=== PATIENT | male | born 1970 | race Caucasian/White ===

== ENCOUNTER 2022-03-20 12:15 | Inpatient (IN) | payer BC ==
[~2022-03-20] VITALS: Ht 177.8 cm; Wt 133.6 kg
[2022-03-20 12:10] VITALS: BP 147/92
[~2022-03-20 12:15] MED LIST: ALPRAZolam 0.25 MG (XANAX) TAB PO PRN; BISACODYL 10 MG SUPP (DULCOLAX) PR PRN; CALCIUM CARBONATE 500 MG (TUMS) TAB.CHEW PO PRN; DOCUSATE SODIUM 100 MG (COLACE) CAP PO PRN; DULO30CA49 PO; FLEET ENEMA ADULT 1 EA BTL PR PRN; FURO40TA4 PO; LACTULOSE SYRUP 10GM/15ML (ENULOSE) 30ML UDC PO PRN; LOPERAMIDE 2 MG (IMODIUM) TABLET PO PRN; MELATONIN 3 MG TABLET PO PRN; ONDANSETRON 4 MG (ZOFRAN) ORAL DISSOLVE TAB PO PRN; POTA-177 PO; SPIR25TA5 PO; diphenhydrAMINE 25 MG TAB (BENADRYL) PO PRN; guaiFENesin/CODEINE (ROBITUSSIN AC) 10ML UDC PO PRN
--- NOTE | 2022-03-20 13:44 | PM&R Post Admission Assessment ---
PM&R Date of Visit: Mar 20, 2022 Time of Visit: 15:00 History of Present Illness CC: Myopathy HPI: This is a 51yoWM clinic patient of Patrica Villareal in [place], [place] who lives in [facility] and has a h/o DM and alcoholism and lumbar spine surgery in [place], [place] 05/2021 who presents to the ARU in need of strengthening and regaining independent ADL's in order to return home with . He has a long standing hx of alcoholism prior to marrying his of 5 years but his use escalated summer after L3-L5 fusion surgery in [place], [place] when pain was unrelenting and since that time he has been more and more weak and having more difficulty working and then walking to the point of frequent falls and one fall resulted in compression fracture at L3. His has filled out disability papers for him 3 weeks ago and has DPOA. He was admitted for 3 days hospital course at [facility] in January which resulted in biPAP use for 2 days due to CO2 narcosis and alcohol withdrawal and has not had alcohol since that time confirmed by since he went to a fdc for 1 month on self pay due to no skilled benefits with his [employer] insurance. His hypokalemia and hyponatremia have improved since admitted to [facility] for observation after supplementation and abdominal USG revealed no evidence of end stage liver disease but did have coarse liver architecture with splenomegly. I did review [facility] DC summary. Past Ouskrkp-Ozypjj-Kjtkey Hx Past Med/Social Hx: Reviewed Nursing Past Med/Soc Hx, Reviewed and Corrections made Patient Social History Marrital Status: Employed/Student: unemployed Alcohol Use: Past History Alcohol Beverage of Choice: Beer Recreational Drug Use: No Smoking Status: Former Smoker Past Medical History Surgeries: Orthopedic (lumbar spine 05/2021) Respiratory: Sleep Apnea Currently Using CPAP: No Currently Using BIPAP: No Cardiac: Hypertension Genitourinary: Prostate Problems fatty liver Musculoskeletal: Arthritis, Chronic Back Pain Endocrine: Diabetes, Non-Insulin dep PM&R Allergy/Meds/Data Review Allergies Coded Allergies: No Known Drug Allergies (Unverified , 03/20/22) Home Medications Scheduled Duloxetine HCl (Duloxetine HCl), 30 MG PO DAILY, (Reported) Furosemide (Furosemide), 40 MG PO DAILY, (Reported) Potassium Chloride (Potassium Chloride), 10 MEQ PO DAILY, (Reported) Spironolactone (Spironolactone), 25 MG PO DAILY, (Reported) Current Medications Current Medications Reviewed Review of Systems Constitutional: see HPI, malaise, weakness EENTM: no symptoms reported Respiratory: no symptoms reported Cardiovascular: no symptoms reported Gastrointestinal: no symptoms reported Genitourinary: no symptoms reported Musculoskeletal: back pain, joint pain, muscle pain, muscle stiffness, muscle cramps, muscle weakness Skin: no symptoms reported Psychiatric/Neurological: Anxiety, Depressed All Other Systems Reviewed Negative Unless Noted: Yes Physical Exam Physical Exam Vital Signs Vital Signs - First Documented 03/20/22 12:10 Temp 36.5 Pulse 98 Resp 18 B/P (MAP) 147/92 (110) Pulse Ox 96 O2 Delivery Room Air Capillary Refill : Height, Weight, BMI Height: '" Weight: lbs. oz. kg; 42.26 BMI Method: General Appearance: No Apparent Distress, WD/WN, Chronically ill, Obese Eyes: Bilateral Eye Normal Inspection, Bilateral Eye PERRL HEENT: PERRL/EOMI, Normal ENT Inspection, Pharynx Normal Neck: Full Range of Motion, Normal Inspection, Non Tender, Supple, Carotid Bruit Respiratory: Chest Non Tender, Lungs Clear, Normal Breath Sounds, No Accessory Muscle Use, No Respiratory Distress Cardiovascular: Regular Rate, Rhythm, No Edema, No Gallop, No JVD, No Murmur, Normal Peripheral Pulses Gastrointestinal: Normal Bowel Sounds, No Organomegaly, No Pulsatile Mass, Non Tender, Soft Back: Normal Inspection, No CVA Tenderness, No Vertebral Tenderness Extremity: Normal Capillary Refill, Normal Inspection, Normal Range of Motion, Non Tender, No Calf Tenderness, No Pedal Edema Neurologic/Psychiatric: Alert, Oriented x3, consumer insight manager II-XII Norm as Tested, Abnormal Gait, Depressed Affect, Motor Weakness (generalized) Skin: Normal Color, Warm/Dry Lymphatic: No Adenopathy PM&R Medical Assessment & Plan REHAB/MEDICAL ASSESSMENT AND PLAN: REHAB IMPAIRMENT GROUP: Myopathy ETIOLOGIC DIAGNOSIS: Myopathy The comorbidities that impact the patients function and/or functional outcome by: previous alcoholism recent cessation, fatty liver, DM, depression, chronic back pain, obesity REHAB PLAN: The patient is being admitted to our comprehensive inpatient rehabilitation facility and can tolerate the intensity of service consisting of at least: 180 minutes of therapy a day, 5 out of 7 days a week Rehab treatment will consist of: PT OT will focus on regaining function in order to gain strength and increase stamina with ambulation along with transfers and increase ADL independence The patient/family has a good understanding of our discharge process and will benefit from an interdisciplinary inpatient rehabilitation program. The patient has potential to make improvement and is in need of at least two of the following multidisciplinary therapies including but not limited to physical, occupational, speech, and prosthetics and orthotics. Additionally the patient will need services from respiratory, nutritional services, wound care, psychology, etc. (Customize this to each patient). Given the patients complex condition and risk of further medical complications, rehabilitation services cannot be safely or effectively provided at a lower level of care such as a chcf facility. BARRIERS TO DISCHARGE: alcoholism ESTIMATED LOS: 9 days DISPOSITION: Home RELEVANT CHANGES SINCE PREADMISSION SCREENING: I have compared the patients medical and functional status at the time of the preadmission screening and there are: no changes PROGNOSIS: Good REHABILITATION GOALS: 1. PT OT will focus on regaining function in order to gain strength and increase stamina with ambulation along with transfers and increase ADL independence All the above goals were reviewed with the patient and he/she is in agreement. By signing this document, I acknowledge that I have personally performed a full physical examination on this patient within 24 hours of admission to this inpatient rehabilitation facility and have determined the patient to be able to tolerate the above course of treatment at an intensive level for a reasonable period of time. I will be completing a detailed individualized Plan of Care for this patient by day #4 of the patients stay based upon the Preadmission Screen, the Post-Admission Evaluation, and the therapy evaluations. Admission Dx/Comorbidities: (1) Myopathy ICD Codes: G72.9 - Myopathy, unspecified Assessment/Plan Assessment and Plan Assess & Plan/Chief Complaint Assessment: Myopathy Alcoholism with recent cessation 6 weeks ago Lumbar spine surgery 05/2021 L3 compression fracture Fall of 2021 Falls Fatty liver Depression BPH DM HTN Hypokalemia Hyponatremia Presumed MAGNUS needs sleep study Recent CO2 narcosis on biPAP Plan: Rehab protocol Monitor closely MYRNA Figueroa DO Mar 20, 2022 13:44
--- NOTE | 2022-03-20 14:16 | Physical Therapy Evaluation ---
PT Evaluation-General Medical Diagnosis Admission Date Mar 20, 2022 at 12:15 Medical Diagnosis: myopathy Onset Date: Mar 20, 2022 Therapy Diagnosis Therapy Diagnosis: impaired mobility, strength Precautions Precautions/Isolations: Fall Prevention, Standard Precautions Referral Physician: Raquel Dave DO Reason for Referral: Evaluation/Treatment Medical History Pertinent Medical History: Alcoholism, DM Additional Medical History lumbar spine fusion 2021 Reviewed History: Yes Social History Home: Single Level Current Living Status: Spouse Entry Into Home: Ramp, Stairs Without Railing PT Steps Into Home: 1 Prior Prior Level of Function SCALE: Activities may be completed with or without assistive devices. 0-Vvtpujibra-bmhermd completes the activity by him/herself with no assistance from a helper. 5-Set-up or Clean-up Assistance-helper sets up or cleans up; patient completes activity. [place] assists only prior to or following the activity. 4-Supervision or Touching Assistance-helper provides verbal cues and/or touching/steadying and/or contact guard assistance as patient completes a ctivity. Assistance may be provided throughout the activity or intermittently. 3-Partial/Moderate Assistance-helper does LESS THAN HALF the effort. [place] lifts, holds or supports trunk or limbs, but provides less than half the effort. 2-Substantial/Maximal Assistance-helper does MORE THAN HALF the effort. [place] lifts or holds trunk or limbs and provides more than half the effort. 1-Tgddaqimr-dirgtv does ALL the effort. Patient does none of the effort to complete the activity. Or, the assistance of 2 or more helpers is required for the patient to complete the activity. If activity was not attempted, code reason: 7-Patient Refused. 9-Not Applicable-not attempted and the patient did not perform the activity before the current illness, exacerbation or injury. 10-Not Attempted due to Environmental Limitations-(lack of equipment, weather restraints, etc.). 88-Not Attempted due to Medical Conditions or Safety Concerns. Bed Mobility: 6 Transfers (B,C,W/C): 6 Gait: 6 Stairs: 6 Indoor Mobility (Ambulation): Independent Stairs: Independent PT Evaluation-Current Subjective Patient in bed pre tx, agrees to PT, has no pain at rest but states he has pain in a right arthritic knee and low back pain. Will be co-treating with OT for part of tx due to poor patient mobility, strength, endurance, severe debility, coordinate UE and LE during activity, safety and reduce risk of falls. Pain Section J - Health Conditions 1. Rarely or not at all 2. Occasionally 3. Frequently 4. Almost constantly 8. Unable to answer Pain Effect on Sleep: 3 Pain Interference with Therapy: 3 Pain Interference w/Day-to-Day: 3 Pt/Family Goals to be independent at home Objective Patient Orientation: Person, Place, Situation ROM/Strength ROM Lower Extremities WNL Strength Lower Extremities LLE (hip flexion 3+/5, knee flexion 3+/5, knee extension 3+/5, dorsiflexion 4/5), RLE (hip flexion 3+/5, knee flexion 3+/5, knee extension 3+/5, dorsifle xion 4/5) Sensory Vision: Functional Hearing: Functional Sensation Right Lower Extremit: Intact Sensation Left Lower Extremity: Intact Transfers Roll Left & Right (QC): 4 Sit to Lying (QC): 4 Lying to Sitting/Side of Bed(Q: 4 Sit to Stand (QC): 3 Chair/Prf-zz-Smvly Xfer(QC): 4 Toilet Transfer (QC): 4 Car Transfer (QC): 4 Patient performs rolling and supine <-> sit with SBA, sit <-> stand min assist (especially from lower surfaces), transfers and car transfer CGA. Patient needs occasional cues for hand placement and positioning. Gait Does the Patient Walk?: Yes Mode of Locomotion: Walk Anticipated Mode of Locomotion: Walk Walk 10 feet (QC): 4 Walk 50 ft with 2 Turns(QC): 4 Walk 150 ft (QC): 88 Walking 10ft/uneven surface-QC: 4 Distance: 120' Gait Assistive Device: FWW Comments/Gait Description Patient can ambulate 120' with a rolling walker with CGA (including 50' with at least 2 turns of 90 degrees and 10' over an uneven surface), gait is slow but steady, decreased foot clearance, patient states he has right knee pain Wheelchair Training Does the Pt Use a Wheelchair?: No Wheel 50 ft with 2 turns (QC): 9 Wheel 150 ft (QC): 9 Stairs 1 Step (curb) (QC): 88 4 Steps (QC): 88 12 Steps (QC): 88 Patient's legs are still too weak at this time to go up and down a step safely. Balance Sitting Static: Good Sitting Dynamic: Good Standing Static: Good Standing Dynamic: Good Picking up an Object (QC): 4 (CGA using a cardiology clinical nurse specialist) Treatment Patient performed a standing activity hitting a balloon back and forth to work on UE ROM and LE strength and endurance, he also bathed and dressed. PT performed bed mobility and transfers, ambulation, balance and safety during balloon activity, positioning and safety during bathing and dressing, OT performed balloon activity, bathing, dressing, UE positioning and safety during activity. Assessment/Needs Patient in bed post tx with nurse call, phone, tray, all needs met. Patient has impaired mobility, strength, endurance. Needs min assist to stand from lower surfaces. Rehab Potential: Fair PT Short Term Goals Short Term Goals Time Frame: Mar 27, 2022 Sit to stand: 4 (CGA) Chair/ibl-ei-fucqt transfer: 4 (SBA) Walk 10 feet: 4 (SBA) Walk 50 feet with two turns: 4 (SBA) Walk 150 feet: 4 (SBA) PT Statement Services Representative Goals Custodial Goals PT Statement Services Representative Goals Time Frame: Apr 03, 2022 Roll Left to Right (QC): 6 Sit to Lying (QC): 6 Lying-Sitting on Side/Bed(QC): 6 Sit to Stand (QC): 6 Chair/Rjf-rb-Jmuis Xfer(QC): 6 Toilet/Commode Transfer (QC): 6 Car Transfer (QC): 6 Does the Patient Walk: Yes Walk 10 feet (QC): 6 Walk 10ft-Uneven Surface(QC): 6 Walk 50ft with 2 Turns (QC): 6 Walk 150 ft (QC): 6 Wheel 50 feet with 2 turns (QC: 9 Wheel 150 feet: 9 1 Step (curb) (QC): 4 4 Steps (QC): 4 12 Steps (QC): 88 Picking up an Object (QC): 6 PT Plan Problem List Problem List: Activity Tolerance, Functional Strength, Safety, Balance, Gait, Transfer, Bed Mobility, ROM Treatment/Plan Treatment Plan: Continue Plan of Care Treatment Plan: Bed Mobility, Education, Functional Activity Марина, Functional Strength, Group Therapy, Gait, Safety, Therapeutic Exercise, Transfers Treatment Duration: Apr 03, 2022 Frequency: At least 5 of 7 days/Wk (IRF) Estimated Hrs Per Day: 1.5 hours per day Patient and/or Family Agrees t: Yes Safety Risks/Education Patient Education: Gait Training, Transfer Techniques, Correct Positioning, Safety Issues Teaching Recipient: Patient Teaching Methods: Demonstration, Discussion Response to Teaching: Reinforcement Needed Discharge Recommendations Plan Patient will perform bed mobility and transfer training, balance and endurance training, functional strengthening, stair training, gait training, and education, to improve functional mobility and independence at home. Therapy Discharge Recommendati: Home & Family, Post Acute PT Time Time In: 1300 Time Out: 1425 DATE: Mar 20, 2022 Total Billed Treatment Time: 75 Total Billed Treatment 1 visit EVM 10' FA 65' PT eval from [id number], OT eval from [id number], co-treat from [id number] STU OATES PT Mar 20, 2022 14:16
--- NOTE | 2022-03-20 14:18 | Occupational Therapy Eval ---
OT Evaluation-General/PLF Medical Diagnosis Admission Date Mar 20, 2022 at 12:15 Medical Diagnosis: myopathy Onset Date: Mar 20, 2022 Therapy Diagnosis Therapy Diagnosis: decreased ADL status, weakness Precautions Precautions/Isolations: Fall Prevention, Standard Precautions Medical History Additional Medical History alcohol abuse, DM2, hypernatremia, hypokalemia, hypomagnesia, sleep apnea, weakness, recurrent falls, lumbar spine fusion 2021 Current History Pt recently had a short stay at SNF with little improvement in weakness, sent home due to insurance no longer covering. Pt admitted to [facility] with weakness and falls, transferring to ARU 03/20/22. Pt has alcohol induced myopathy (abstinent for ~6 weeks) Social History Home: Single Level Current Living Status: Significant Other Entry Into Home: Ramp (small threshold) ADL-Prior Level of Function SCALE: Activities may be completed with or without assistive devices. 4-Bznijkzhcs-cjinjlq completes the activity by him/herself with no assistance from a helper. 5-Set-up or Clean-up Assistance-helper sets up or cleans up; patient completes activity. [place] assists only prior to or following the activity. 4-Supervision or Touching Assistance-helper provides verbal cues and/or touching/steadying and/or contact guard assistance as patient completes activity. Assistance may be provided throughout the activity or intermittently. 3-Partial/Moderate Assistance-helper does LESS THAN HALF the effort. [place] lifts, holds or supports trunk or limbs, but provides less than half the effort. 2-Substantial/Maximal Assistance-helper does MORE THAN HALF the effort. [place] lifts or holds trunk or limbs and provides more than half the effort. 1-Nvltjhiff-lfjxwu does ALL the effort. Patient does none of the effort to complete the activity. Or, the assistance of 2 or more helpers is required for the patient to complete the activity. If activity was not attempted, code reason: 7-Patient Refused. 9-Not Applicable-not attempted and the patient did not perform the activity before the current illness, exacerbation or injury. 10-Not Attempted due to Environmental Limitations-(lack of equipment, weather restraints, etc.). 88-Not Attempted due to Medical Conditions or Safety Concerns. ADL PLOF Comments Pt and spouse provided information on pt's PLOF. Pt was primarily independent with ADLS and mobility, no AD prior to decline in January. He required assistance with washing his buttocks in shower and after BM. Since his SNF stay, pt has been using a walker, and requiring more assistance with ADLs and mobility. Pt has had some falls recently, which he has been unable to get up from floor and had to call 911 to assist. Pt's spouse reports pt has AE for toilet hygiene but pt has not been interested in learning to use device. Pt's spouse to bring device for pt to learn how to use. Self Care: Needed Some Help Functional Cognition: Independent DME/Equipment: Bath Bench (built in), Shower (4-5 inch threshold), Tall Toilet (with handles) OT Current Status Subjective Pt agreeable to OT evaluation. Spouse present and assisted with providing information on PLOF and home set up. Mental Status/Objective Patient Orientation: Person, Place, Time, Situation Current Hand Dominance: Right Upper Extremity ROM BUE shoulder flexion to approx 90 degrees, WFL at elbow/wrist/hand Upper Extremity Coordination WFL Upper Extremity Sensation pt reports some tingling in fingertips Upper Extremity Strength grossly 4/5 BUEs. ADL-Treatment Eating (QC): 6 (Per pt and spouse report.) Oral Hygiene (QC): 4 (SBA) Shower/Bathe Self (QC): 3 (Min A. Assistance washing buttocks, BLE lower legs/feet.) Upper Body Dressing (QC): 5 (set up) Lower Body Dressing (QC): 3 (Mod A. Pt required assistance doffing pants over feet, and donning over L foot. Pt able to perform pant hike and thread R foot. ) On/Off Footwear (QC): 3 (Min A. Pt able to don socks (sock aide) and shoes (slip on). Pt able to doff shoes, assist with doffing socks.) Toileting Hygiene (QC): 3 (Pt able to manage clothing, assistance with hygiene post BM.) Other Treatments OT evalution complete. OT/PT cotreat due to skill of 2 clinicians required which a restorative rehab aide could not perform in order to coordinate UE/LEs, decrease fall risk, and due to pt's limitations in strength, activity tolerance, mobility, and transfers. OT focused on ADLs, UE placement, and cues for sequencing and safety, PT focused on LE placement, gross overall movement, transfers/mobility. Pt completed functional mobility and transfers using FWW, including uneven surface, car transfer, bed mobility. Pt used FWW to go to his room, transferring onto BSC over toilet. Pt completed toileting, transferred to shower chair, doffed clothes, completed showering, then donned clothes. Pt used FWW to transfer to EOB for seated rest break. Pt stood at EOB x2 for balloon batting task to improve UE reaching, dynamic standing balance, activity tolerance, and strength. Pt transferred supine to sit EOB. Post tx, pt in bed, call light in reach and all needs met. SBA rolling and supine to/from sit. Min A sit to/from stand, CGA transfers. Pt requires occasional cues for UE placement and positioning. Functional mobility 120' using FWW, CGA. Education OT Patient Education: Correct positioning, Energy conservation, Modified ADL techniques, Progress toward Goal/Update tx plan, Purpose of tx/functional activities, Rehab process Teaching Recipient: Patient Teaching Methods: Discussion Response to Teaching: Verbalize Understanding BIMS CAM BIMS Expression of Ideas and Wants: Without Difficulty Understanding Verbal Content: Understands Brief Interview/Mental Status: Yes IRF CRIS BIMS: IRF CRIS BIMS Response (Comments) Value Repitition of Three Words Three 3 Recalls Socks Yes, No Cue Required 2 Recalls Blue Yes, No Cue Required 2 Recalls Bed Yes, No Cue Required 2 Year Missed by 1 Year (2021) 2 Month Accurate Within 5 Days 2 Day Correct 1 Total 14 Should Staff Ass[address] Mental [address] No CAM Mental Status Change/Baseline: 0 Inattention: 0 Disorganized thinkin Altered level of consciousness: 0 OT Short Term Goals Short Term Goals Time Frame: Apr 01, 2022 Toileting hygiene: 4 Shower/bathe self: 4 Lower body dressin Putting on/taking off footwear: 4 OT Cold Press Operator Goals Cold Press Operator Goals Time Frame: Apr 10, 2022 Eating (QC): 6 Oral Hygiene (QC): 6 Toileting Hygiene (QC): 6 Shower/Bathe Self (QC): 6 Upper Body Dressing (QC): 6 Lower Body Dressing (QC): 6 On/Off Footwear (QC): 6 Additional Goals: 1-Demonstrate ADL Tasks, 2-Verbalize Understanding, 3- ImproveStrength/Марина 1=Demonstrate adherence to instructed precautions during ADL tasks. 2=Patient will verbalize/demonstrate understanding of assistive devices/modifications for ADL. 3=Patient will improve strength/tolerance for activity to enable patient to perform ADL's. OT Education/Plan Problem List/Assessment Assessment: Decreased Activ Tolerance, Decreased UE Strength, Impaired Funct Balance, Impaired I ADL's, Impaired Self-Care Skills Discharge Recommendations Plan/Recommendations: Continue POC Treatment Plan/Plan of Care Patient would benefit from OT for education, treatment and training to promote independence in ADL's, mobility, safety and/or upper extremity function for ADL's. Plan of Care: ADL Retraining, Functional Mobility, Group Exercise/Act as Ind, UE Funct Exercise/Act Treatment Duration: Apr 10, 2022 Frequency: At least 5 of 7 days/Wk (IRF) Estimated Hrs Per Day: 1.5 hours per day Agreement: Yes Rehab Potential: Good Time Start Time: 13:10 Stop Time: 14:25 DATE: Mar 20, 2022 Total Time Billed (hr/min): 75 Billed Treatment Time 7828-6097 OT evaluation (10'), [id number] Cotreat (65') 1, EVM (10'), FA 2 (35'), ADL 2 (30') IDALIA SCRUGGS OT Mar 20, 2022 14:18
--- NOTE | 2022-03-20 14:40 | ST Cognitive Linguistic Eval ---
Speech Evaluation-General Medical Diagnosis Myopathy Onset Date: Mar 20, 2022 Therapy Diagnosis Therapy Diagnosis: Baseline Cognition Precautions Precautions: Fall, Pressure Ulcer Precautions/Isolations: Fall Prevention, Standard Precautions, Pressure Ulcer Referral Referring Physician: Dr. Dave Reason for Referral: Evaluation/Treatment Medical History Pertinent Medical History: Alcoholism, DM Reviewed History: Yes Social History Current Living Status: Significant Other Speech PLF-Current Status Prior Level of Function The patient stated his "memory isn't the best" but denied recent changes or concerns with his overall speech, language, or cognition. The patient denied the memory deficits he referred to as acute stating, "No, that's just how I am." Subjective The patient was lying in bed, awake and alert, upon entrance to his room by the clinician. The patient greeted the clinician appropriately and was agreeable to participation in the cognitive linguistic assessment. Language Eval: Auditory Comprehends Simple Yes/No Ques: Functional Indent/Objects Multiple [place]: Functional Follows 1-Step Commands: Functional Follows General Conversations: Functional Language Eval: Verbal Language Completes Spontaneous Greeting: Functional Produces Auto, Serial Info: Functional Word Finding: Functional Requests Basic Needs: Functional States Basic Personal Info: Functional Language Evaluation: Reading Follows Simple Written Direct: Functional Language Evaluation: Writing Writes to Simple Dictation: Functional Cognitive Patient Orientation The patient was independently oriented to self, location, month, day of the week , date, and year. Objective Cognitive Domain Attention: WNL Memory: Mild Problem Solving: Functional Visuospatial Skills: WNL Clock Drawing Severity Rating: WNL Objective Formal/Standardized Tests [facility] Mental Status Exam (UMS) Results The patient demonstrated a result of +25/30 on the SLUMS correlating to a mild cognitive deficit per scoring range. Oral Motor/Speech Production The patient did not demonstrate dysarthria or apraxia of speech. The patient was 100% intelligible in known and unknown contexts. Impression The patient demonstrated a mild neurocognitive deficit per SLUMS scoring range. Regardless, the patient stated he is at baseline function. Prior to the evaluation, the patient reported his memory was declined. The patient confirmed on multiple occasions his memory deficits are not acute. The patient denied concerns regarding his cognitive function at this time. Speech-Plan Treatment Plan Speech Therapy Treatment Plan: Discontinue ST Treatment Duration: Mar 20, 2022 Frequency: 1 time per week Estimated Hrs Per Day: .5 hour per day Rehab Potential: Good Safety Risks/Education Teaching Recipient: Patient Teaching Methods: Discussion Response to Teaching: Verbalize Understanding Education Topics Provided: Results, Recommendations, Plan of Care Time Speech Therapy Time In: 14:25 Speech Therapy Time Out: 14:55 DATE: Mar 20, 2022 Total Billed Time: 30 Billed Treatment Time 1, ABNER FERNANDEZ ELIZAB[address] ST Mar 20, 2022 14:40
[2022-03-20] MEDS: polyethylene glycoL POWDER 17 GM (MIRALAX) PACK PO SCH ×2 (15:22→20:00)
[2022-03-20] MEDS: DOCUSATE SODIUM 100 MG (COLACE) CAP PO SCH ×2 (15:22→20:00)
[2022-03-20] MEDS: SENNA W/DOCUSATE (SENOKOT S) TABLET PO SCH ×2 (15:22→20:00)
[2022-03-20] MEDS: ENOXAPARIN 40 MG/0.4 ML (LOVENOX) SYR SC SCH (20:06)
[2022-03-20 20:09] VITALS: BP 133/68
[2022-03-20] MEDS: ACETAMINOPHEN 325 MG TABLET PO PRN (20:10)
[2022-03-20] MEDS: MICONAZOLE 2% POWDER (DESENEX AF) 90 GM TOP SCH (20:11)
[2022-03-21 06:02] LABS: BASOPHILS # (AUTO) 0.1 10^3/uL (0.0-0.1); BASOPHILS % (AUTO) 2 % (0-10); EOSINOPHILS # (AUTO) 0.5 10^3/uL (0.0-0.3); EOSINOPHILS % (AUTO) 8 % (0-10); HEMATOCRIT 33 % (40-54); HEMOGLOBIN 11.3 g/dL (13.3-17.7); LYMPHOCYTES # (AUTO) 2.2 10^3/uL (1.0-4.0); LYMPHOCYTES % (AUTO) 40 % (12-44); MEAN CORPUSCULAR HEMOGLOBIN 31 pg (25-34); MEAN CORPUSCULAR HGB CONC 34 g/dL (32-36); MEAN CORPUSCULAR VOLUME 89 fL (80-99); MEAN PLATELET VOLUME 10.3 fL (9.0-12.2); MONOCYTES # (AUTO) 0.6 10^3/uL (0.0-1.0); MONOCYTES % (AUTO) 11 % (0-12); NEUTROPHILS # (AUTO) 2.1 10^3/uL (1.8-7.8); NEUTROPHILS % (AUTO) 39 % (42-75); PLATELET COUNT 335 10^3/uL (130-400); WHITE BLOOD COUNT 5.4 10^3/uL (4.3-11.0)
[2022-03-21 06:14] LABS: ALBUMIN 2.9 GM/DL (3.2-4.5); POTASSIUM 3.1 MMOL/L (3.6-5.0)
[2022-03-21 06:16] LABS: CALCIUM 9.2 MG/DL (8.5-10.1)
[2022-03-21 06:19] LABS: BILIRUBIN,TOTAL 0.7 MG/DL (0.1-1.0)
[2022-03-21] MEDS: ENOXAPARIN 40 MG/0.4 ML (LOVENOX) SYR SC SCH ×2 (06:19→17:41)
[2022-03-21 06:21] LABS: CREATININE SERUM 0.73 MG/DL (0.60-1.30)
--- NOTE | 2022-03-21 06:46 | Individualized Plan of Care ---
Individualized Plan of Care Rehab Nursing IPOC Order Admission Date Mar 20, 2022 at 12:15 Current Orders Orders Admission Order(Inpt,Obs,Sdc) (03/20/22 06:26) Vital Signs: Per Unit Policy ( 08,16,00 (03/20/22 06:26) Juwan Spann 09,21 (03/20/22 06:26) Sequential Compression Device (03/20/22 06:26) Photographic Process Worker-Inpt Rehab Con (03/20/22 06:26) Rehab Nursing Orders-Ipoc (03/20/22 06:26) Physical Therapy Rehab Orders (03/20/22 06:26) Occupational Therapy Rehab Ord (03/20/22 06:26) Speech Therapy Rehab Orders (03/20/22 06:26) Cbc With Automated Diff (03/21/22 06:00) Comprehensive Metabolic Panel (03/21/22 06:00) Precautions (Aru) (03/20/22 06:26) Weekly Weight WEEK (03/20/22 06:26) Rehab-Intensity Of Therapy (03/20/22 06:26) Initiate Admission Nursing Pro .admission (03/20/22 06:26) Alprazolam Tablet (Xanax Tablet) (03/20/22 06:30) Calcium Carbonate Chew Tablet (Antacid C (03/20/22 06:30) Diphenhydramine Tablet (Benadryl Tablet) (03/20/22 06:30) Docusate Sodium Capsule (Colace Capsule) (03/20/22 09:00) Docusate Sodium Capsule (Colace Capsule) (03/20/22 06:30) Bisacodyl Suppository (Dulcolax Supposit (03/20/22 06:30) Lactulose Oral Solution (Enulose Oral So (03/20/22 06:30) Na Phos/Na Biphos Enema (Fleet Enema [place] (03/20/22 06:30) Guaifenesin/Codeine Syrup (Robitussin Ac (03/20/22 06:30) Loperamide Tablet (Imodium Tablet) (03/20/22 06:30) Enoxaparin Injection (Lovenox Injection) (03/20/22 18:30) Melatonin Tablet (Melatonin Tablet) (03/20/22 06:30) Polyethylene Glycol Powder Pkt (Miralax (03/20/22 09:00) Ondansetron Oral Dissolve Tab (Zofran (03/20/22 06:30) Senna S Tablet (Senokot S Tablet) (03/20/22 09:00) Acetaminophen Tablet/Caplet (Tylenol T (03/20/22 06:30) Code/Resuscitation (03/20/22 06:26) Admission Arrival Bed Request (03/20/22 12:25) General/Regular (03/20/22 Lunch) Duloxetine Capsule (Cymbalta Capsule) (03/21/22 09:00) Furosemide Tablet (Lasix Tablet) (03/21/22 09:00) Spironolactone Tablet (Aldactone Tablet) (03/21/22 09:00) (Nf) Potassium Chloride (03/21/22 09:00) Potassium Chloride (Tablet) (Klor Con Ta (03/21/22 08:00) Patient Visit (03/20/22 ) Speech Sound Lang Comp (03/20/22 ) Treat. Speech/Lang/Voice (03/20/22 ) Miconazole 2% Powder (Phytoplex Af 2% Po (03/20/22 21:00) Patient Visit (03/21/22 ) Pt Eval Moderate Complexity (03/21/22 ) Functional Activities, Ea 15 (03/21/22 ) Potassium Chloride (Tablet) (K Dur Table (03/21/22 13:00) Rehab Nursing Orders: Ongoing Assess. of Cognitive Status, Ongoing Assess. of Function Status, Bladder Management, Bladder Scan, Bladder Training, Bowel Management, Bowel Training, Disease Management & Educaiton, DVT Prophylaxis, Fall Prevention, Fluid/Electrolyte/Nutrition Mgmt, Infection Prevention, Medication Management & Education, Management of Risks & Complications, Management of Skin Intergrity, Nutrition Management, Pain Management, Patient/Family Support, Safety Management Intensity of Therapy to be met Patient to be seen: Min.3h per day/5 of 7d PT IPOC Problem List: Activity Tolerance, Functional Strength, Safety, Balance, Gait, Transfer, Bed Mobility, ROM Treatment Plan: Continue Plan of Care Bed Mobility, Education, Functional Activity Марина, Functional Strength, Group Therapy, Gait, Safety, Therapeutic Exercise, Transfers Treatment Duration: Apr 03, 2022 Frequency: At least 5 of 7 days/Wk (IRF) Estimated Hrs Per Day: 1.5 hours per day OT IPOC Problems: Decreased Activ Tolerance, Decreased UE Strength, Impaired Funct Balance, Impaired I ADL's, Impaired Self-Care Skills OT Treatment, Training and Edu: Yes Plan of Care: ADL Retraining, Functional Mobility, Group Exercise/Act as Ind, UE Funct Exercise/Act Treatment Duration: Apr 10, 2022 Frequency: At least 5 of 7 days/Wk (IRF) Estimated Hrs Per Day: 1.[address] IPOC Speech Therapy Treatment Plan: Discontinue ST Treatment Duration: Mar 20, 2022 Frequency: 1 time per week Estimated Hrs Per Day: .5 hour per day Photographic Process Worker/Case Mgmt Photographic Process Worker/Case Managemen: Discharge Planning Dietitian/Bone Char Operator Dietitian/Bone Char Operator to monitor nutritional status and make changes and/or recommendations as needed and work with speech pathology on dietary upgrades as the occur. Physician IPOC Medical Issues being managed closely and that require the 24 hour availability of a physician: Recent myopathy issues with post alcoholic residual along with old L3 co mpression fracture with lumbar spine surgery 05/2021 without significant recovery will require close monitoring for any liver decompensation Medical Issues: Bowel/Bladder Function, DVT Prophylaxis, Falls Precautions, Fluid/Electrolyte/Nutrition Balance, Infection Protection, Pain Management Brief Synthesis of Preadmission Screen, Post-Admission Evaluation, and Therapy Evaluations: PT OT will focus on regaining strength and working through myopathy issues along with increasing motivation to improve and ultimately return back to independent living Medical Prognosis: Good Anticipated Length of Stay: 7 days MYRNA LOWRY DO Mar 21, 2022 06:46
--- NOTE | 2022-03-21 06:46 | PM&R Progress Note ---
Subjective HPI/CC On Admission Date Seen by Provider: Mar 21, 2022 Time Seen by Provider: 12:00 Subjective/Events-last exam 03/21/2022: Patient much improved Low potassium so will increase supplement Participation is good Tends to be sedentary and likes to be in bed so we will take note of that and increase activity No pain reported BM+ Review of Systems General: Fatigue, Malaise Objective Exam Vital Signs Vital Signs Date Time Temp Pulse Resp B/P (MAP) Pulse Ox O2 Delivery O2 Flow Rate FiO2 03/21/22 09:00 Room Air 03/21/22 07:37 36.2 88 20 136/83 (100) 94 Capillary Refill : General Appearance: No Apparent Distress, WD/WN, Chronically ill, Obese HEENT: PERRL/EOMI, Normal ENT Inspection, Pharynx Normal Neck: Full Range of Motion, Normal Inspection, Non Tender, Supple, Carotid Bruit Respiratory: Chest Non Tender, Lungs Clear, Normal Breath Sounds, No Accessory Muscle Use, No Respiratory Distress Cardiovascular: Regular Rate, Rhythm, No Edema, No Gallop, No JVD, No Murmur, Normal Peripheral Pulses Gastrointestinal: Normal Bowel Sounds, No Organomegaly, No Pulsatile Mass, Non Tender, Soft Back: Normal Inspection, No CVA Tenderness, No Vertebral Tenderness Extremity: Normal Capillary Refill, Normal Inspection, Normal Range of Motion, Non Tender, No Calf Tenderness, No Pedal Edema Neurologic/Psychiatric: Alert, Oriented x3, aluminizer II-XII Norm as Tested, Abnormal Gait, Depressed Affect, Motor Weakness (generalized) Skin: Normal Color, Warm/Dry Lymphatic: No Adenopathy Results/Procedures Lab Laboratory Tests 03/21/22 05:52 Patient resulted labs reviewed. FIM Transfers Therapy Code Descriptions/Definitions Functional [place] Measure: 0=Not Assessed/NA 4=Minimal Assistance 1=Total Assistance 5=Supervision or Setup 2=Maximal Assistance 6=Modified [place] 3=Moderate Assistance 7=Complete IndependenceSCALE: Activities may be completed with or without assistive devices. 0-Bxssjtsfjk-llonvrn completes the activity by him/herself with no assistance from a helper. 5-Set-up or Clean-up Assistance-helper sets up or cleans up; patient completes activity. [place] assists only prior to or following the activity. 4-Supervision or Touching Assistance-helper provides verbal cues and/or touching/steadying and/or contact guard assistance as patient completes activit y. Assistance may be provided throughout the activity or intermittently. 3-Partial/Moderate Assistance-helper does LESS THAN HALF the effort. [place] lifts, holds or supports trunk or limbs, but provides less than half the effort. 2-Substantial/Maximal Assistance-helper does MORE THAN HALF the effort. [place] lifts or holds trunk or limbs and provides more than half the effort. 2-Hboenwhsu-yzutxz does ALL the effort. Patient does none of the effort to complete the activity. Or, the assistance of 2 or more helpers is required for the patient to complete the activity. If activity was not attempted, code reason: 7-Patient Refused. 9-Not Applicable-not attempted and the patient did not perform the activity before the current illness, exacerbation or injury. 10-Not Attempted due to Environmental Limitations-(lack of equipment, weather restraints, etc.). 88-Not Attempted due to Medical Conditions or Safety Concerns. Roll Left to Right (QC): 4 Sit to Lying (QC): 4 Sit to Stand (QC): 3 Chair/Ivc-yx-Fstzw Xfer(QC): 4 Car Transfer (QC): 4 Gait Training Does the Patient Walk?: Yes Walk 10 feet (QC): 4 Walk 50 ft with 2 Turns(QC): 4 Walk 150 ft (QC): 88 Walking 10ft/uneven surface-QC: 4 Gait Assistive Device: FWW Wheelchair Training Does the Pt Use a Wheelchair?: No Wheel 50 ft with 2 turns (QC): 9 Wheel 150 ft (QC): 9 Stair Training 1 Step (curb) (QC): 88 4 Steps (QC): 88 12 Steps (QC): 88 Balance Picking up an Object (QC): 4 (CGA using a insurance defense paralegal) ADL-Treatment Eating (QC): 6 (Per pt and spouse report.) Oral Hygiene (QC): 4 (SBA) Shower/Bathe Self (QC): 3 (Min A. Assistance washing buttocks, BLE lower legs/feet.) Upper Body Dressing (QC): 5 (set up) Lower Body Dressing (QC): 3 (Mod A. Pt required assistance doffing pants over feet, and donning over L foot. Pt able to perform pant hike and thread R foot. ) On/Off Footwear (QC): 3 (Min A. Pt able to don socks (sock aide) and shoes (slip on). Pt able to doff shoes, assist with doffing socks.) Toileting Hygiene (QC): 3 (Pt able to manage clothing, assistance with hygiene post BM.) Assessment/Plan Assessment and Plan Assess & Plan/Chief Complaint Assessment: Myopathy Alcoholism with recent cessation 6 weeks ago Lumbar spine surgery 05/2021 L3 compression fracture Fall of 2021 [place] Fatty liver Depression BPH DM HTN Hypokalemia Hyponatremia Presumed MAGNUS needs sleep study Recent CO2 narcosis on biPAP Plan: Rehab protocol Monitor closely Lovenox 03/21/2022: Increase activity Lovenox (1) Myopathy MYRNA LOWRY DO Mar 21, 2022 06:46
[2022-03-21 07:37] VITALS: BP 136/83
[2022-03-21] MEDS ORDERED: KCL 10 MEQ TAB (MICRO K) PO SCH (08:00)
[2022-03-21] MEDS: ACETAMINOPHEN 325 MG TABLET PO PRN ×2 (09:00→19:43)
[2022-03-21] MEDS ORDERED: NON-FORMULARY MEDICATION 1 EA EA (Potassium Chloride 10 MEQ) PO SCH (09:00)
[2022-03-21] MEDS: SPIRONOLACTONE 25 MG (ALDACTONE) TAB PO SCH (09:00)
[2022-03-21] MEDS: DULoxetine 30 MG (CYMBALTA) CAP PO SCH (09:00)
[2022-03-21] MEDS: SENNA W/DOCUSATE (SENOKOT S) TABLET PO SCH ×2 (09:01→20:00)
[2022-03-21] MEDS: DOCUSATE SODIUM 100 MG (COLACE) CAP PO SCH ×2 (09:01→20:00)
[2022-03-21] MEDS: FUROSEMIDE 40 MG (LASIX) TAB PO SCH (09:01)
[2022-03-21] MEDS: polyethylene glycoL POWDER 17 GM (MIRALAX) PACK PO SCH ×2 (09:02→20:00)
[2022-03-21] MEDS: MICONAZOLE 2% POWDER (DESENEX AF) 90 GM TOP SCH ×2 (09:03→20:00)
--- NOTE | 2022-03-21 11:22 | Physical Therapy Daily Note ---
PT Daily Note-Current Subjective Pt laying in bed upon arrival. Pt needs encouragement for PT. Pain Location: Right, Left Location Body Site: Thigh Pain Description: Ache Section J - Health Conditions 1. Rarely or not at all 2. Occasionally 3. Frequently 4. Almost constantly 8. Unable to answer Pain Effect on Sleep: 3 Pain Interference with Therapy: 3 Pain Interference w/Day-to-Day: 3 Mental Status Patient Orientation: Person, Place, Situation Transfers SCALE: Activities may be completed with or without assistive devices. 0-Cgsbwlbiln-vgjzfph completes the activity by him/herself with no assistance from a helper. 5-Set-up or Clean-up Assistance-helper sets up or cleans up; patient completes activity. [place] assists only prior to or following the activity. 4-Supervision or Touching Assistance-helper provides verbal cues and/or touching/steadying and/or contact guard assistance as patient completes activity. Assistance may be provided throughout the activity or intermittently. 3-Partial/Moderate Assistance-helper does LESS THAN HALF the effort. [place] lifts, holds or supports trunk or limbs, but provides less than half the effort. 2-Substantial/Maximal Assistance-helper does MORE THAN HALF the effort. [place] lifts or holds trunk or limbs and provides more than half the effort. 2-Zinexcmeo-ctxrhv does ALL the effort. Patient does none of the effort to complete the activity. Or, the assistance of 2 or more helpers is required for the patient to complete the activity. If activity was not attempted, code reason: 7-Patient Refused. 9-Not Applicable-not attempted and the patient did not perform the activity before the current illness, exacerbation or injury. 10-Not Attempted due to Environmental Limitations-(lack of equipment, weather restraints, etc.). 88-Not Attempted due to Medical Conditions or Safety Concerns. Exercises Supine Ex: Ankle pumps, Quad Set, Glut sets, Heel Slides, Straight leg raise, Hip abd/add Supine Reps: 15 Treatments After RESEARCH AND INSIGHTS EXECUTIVE gives encouragement for PT, pt completes Supine EX. All needs met, call light in hand. Assessment Current Status: Fair Progress Pt needs encouragement for PT. PT Short Term Goals Short Term Goals Time Frame: Mar 27, 2022 Sit to stand: 4 (CGA) Chair/mcs-sp-wekxq transfer: 4 (SBA) Walk 10 feet: 4 (SBA) Walk 50 feet with two turns: 4 (SBA) Walk 150 feet: 4 (SBA) PT Mixing Tank Operator Goals Mixing Tank Operator Goals PT Mixing Tank Operator Goals Time Frame: Apr 03, 2022 Roll Left & Right (QC): 6 Sit to Lying (QC): 6 Lying-Sitting on Side/Bed(QC): 6 Sit to Stand (QC): 6 Chair/Utb-rv-Eetrz Xfer(QC): 6 Toilet Transfer (QC): 6 Car Transfer (QC): 6 Does the Patient Walk: Yes Walk 10 feet (QC): 6 Walk 50ft with 2 Turns (QC): 6 Walk 150 ft (QC): 6 Walking 10ft on Uneven Surface: 6 1 Step (curb) (QC): 4 4 Steps (QC): 4 12 Steps (QC): 88 Picking up an Object (QC): 6 Wheel 50 feet with 2 turns (QC: 9 Wheel 150 feet: 9 PT Plan Problem List Problem List: Activity Tolerance, Functional Strength Treatment/Plan Treatment Plan: Continue Plan of Care Treatment Plan: Bed Mobility, Education, Functional Activity Марина, Functional Strength, Group Therapy, Gait, Safety, Therapeutic Exercise, Transfers Treatment Duration: Apr 03, 2022 Frequency: At least 5 of 7 days/Wk (IRF) Estimated Hrs Per Day: 1.5 hours per day Patient and/or Family Agrees t: Yes Time Time In: 1038 Time Out: 1053 DATE: Mar 21, 2022 Total Billed Treatment Time: 15 Total Billed Treatment 1, EX (15m) THIAGO DOE PTA Mar 21, 2022 11:22
[2022-03-21] MEDS: KCL 20 MEQ TAB (K-DUR) PO SCH ×2 (13:12→17:41)
[2022-03-21 19:38] VITALS: BP 138/84
[2022-03-22] MEDS: ENOXAPARIN 40 MG/0.4 ML (LOVENOX) SYR SC SCH ×2 (06:11→17:49)
[2022-03-22 07:30] VITALS: BP 127/88
[2022-03-22] MEDS: KCL 20 MEQ TAB (K-DUR) PO SCH ×3 (07:51→17:49)
[2022-03-22] MEDS: DULoxetine 30 MG (CYMBALTA) CAP PO SCH (07:51)
[2022-03-22] MEDS: ACETAMINOPHEN 325 MG TABLET PO PRN (07:51)
[2022-03-22] MEDS: SPIRONOLACTONE 25 MG (ALDACTONE) TAB PO SCH (07:51)
[2022-03-22] MEDS: FUROSEMIDE 40 MG (LASIX) TAB PO SCH (07:51)
[2022-03-22] MEDS: DOCUSATE SODIUM 100 MG (COLACE) CAP PO SCH ×2 (07:55→20:47)
[2022-03-22] MEDS: polyethylene glycoL POWDER 17 GM (MIRALAX) PACK PO SCH ×2 (07:55→20:47)
[2022-03-22] MEDS: MICONAZOLE 2% POWDER (DESENEX AF) 90 GM TOP SCH ×2 (07:56→21:08)
[2022-03-22] MEDS: SENNA W/DOCUSATE (SENOKOT S) TABLET PO SCH ×2 (07:56→20:47)
--- NOTE | 2022-03-22 08:08 | PM&R Progress Note ---
Subjective HPI/CC On Admission Date Seen by Provider: Mar 22, 2022 Time Seen by Provider: 12:00 Subjective/Events-last exam 03/22/2022: Patient much improved at bedside had some questions and social services technician will be meeting with her tomorrow Improved status 03/21/2022: Patient much improved Low potassium so will increase supplement Participation is good Tends to be sedentary and likes to be in bed so we will take note of that and increase activity No pain reported BM+ Review of Systems General: Fatigue, Malaise Objective Exam Vital Signs Vital Signs Date Time Temp Pulse Resp B/P (MAP) Pulse Ox O2 Delivery O2 Flow Rate FiO2 03/22/22 09:00 Room Air 03/22/22 07:30 36.2 104 20 127/88 (101) 95 Capillary Refill : General Appearance: No Apparent Distress, WD/WN, Chronically ill, Obese HEENT: PERRL/EOMI, Normal ENT Inspection, Pharynx Normal Neck: Full Range of Motion, Normal Inspection, Non Tender, Supple, Carotid Bruit Respiratory: Chest Non Tender, Lungs Clear, Normal Breath Sounds, No Accessory Muscle Use, No Respiratory Distress Cardiovascular: Regular Rate, Rhythm, No Edema, No Gallop, No JVD, No Murmur, Normal Peripheral Pulses Gastrointestinal: Normal Bowel Sounds, No Organomegaly, No Pulsatile Mass, Non Tender, Soft Back: Normal Inspection, No CVA Tenderness, No Vertebral Tenderness Extremity: Normal Capillary Refill, Normal Inspection, Normal Range of Motion, Non Tender, No Calf Tenderness, No Pedal Edema Neurologic/Psychiatric: Alert, Oriented x3, batch freezer II-XII Norm as Tested, Abnormal Gait, Depressed Affect, Motor Weakness (generalized) Skin: Normal Color, Warm/Dry Lymphatic: No Adenopathy Results/Procedures Lab Patient resulted labs reviewed. FIM Transfers Therapy Code Descriptions/Definitions Functional [place] Measure: 0=Not Assessed/NA 4=Minimal Assistance 1=Total Assistance 5=Supervision or Setup 2=Maximal Assistance 6=Modified [place] 3=Moderate Assistance 7=Complete IndependenceSCALE: Activities may be completed with or without assistive devices. 0-Pzqipklqby-gvsjsta completes the activity by him/herself with no assistance from a helper. 5-Set-up or Clean-up Assistance-helper sets up or cleans up; patient completes activity. [place] assists only prior to or following the activity. 4-Supervision or Touching Assistance-helper provides verbal cues and/or touching/steadying and/or contact guard assistance as patient completes activity. Assistance may be provided throughout the activity or intermittently. 3-Partial/Moderate Assistance-helper does LESS THAN HALF the effort. [place] lifts, holds or supports trunk or limbs, but provides less than half the effort. 2-Substantial/Maximal Assistance-helper does MORE THAN HALF the effort. [place] lifts or holds trunk or limbs and provides more than half the effort. 6-Rwotknacb-ryjcyq does ALL the effort. Patient does none of the effort to complete the activity. Or, the assistance of 2 or more helpers is required for the patient to complete the activity. If activity was not attempted, code reason: 7-Patient Refused. 9-Not Applicable-not attempted and the patient did not perform the activity before the current illness, exacerbation or injury. 10-Not Attempted due to Environmental Limitations-(lack of equipment, weather restraints, etc.). 88-Not Attempted due to Medical Conditions or Safety Concerns. Roll Left to Right (QC): 4 Sit to Lying (QC): 4 Sit to Stand (QC): 3 Chair/Hxa-kk-Ymbwa Xfer(QC): 4 Car Transfer (QC): 4 Gait Training Does the Patient Walk?: Yes Walk 10 feet (QC): 4 Walk 50 ft with 2 Turns(QC): 4 Walk 150 ft (QC): 88 Walking 10ft/uneven surface-QC: 4 Gait Assistive Device: FWW Wheelchair Training Does the Pt Use a Wheelchair?: No Wheel 50 ft with 2 turns (QC): 9 Wheel 150 ft (QC): 9 Stair Training 1 Step (curb) (QC): 88 4 Steps (QC): 88 12 Steps (QC): 88 Balance Picking up an Object (QC): 4 (CGA using a mat cutter) ADL-Treatment Eating (QC): 6 (Per pt and spouse report.) Oral Hygiene (QC): 4 (SBA) Shower/Bathe Self (QC): 3 (Min A. Assistance washing buttocks, BLE lower legs/feet.) Upper Body Dressing (QC): 5 (set up) Lower Body Dressing (QC): 3 (Mod A. Pt required assistance doffing pants over feet, and donning over L foot. Pt able to perform pant hike and thread R foot. ) On/Off Footwear (QC): 3 (Min A. Pt able to don socks (sock aide) and shoes (sl ip on). Pt able to doff shoes, assist with doffing socks.) Toileting Hygiene (QC): 3 (Pt able to manage clothing, assistance with hygiene post BM.) Assessment/Plan Assessment and Plan Assess & Plan/Chief Complaint Assessment: Myopathy Alcoholism with recent cessation 6 weeks ago Lumbar spine surgery 05/2021 L3 compression fracture Fall of 2021 [place] Fatty liver Depression BPH DM HTN Hypokalemia Hyponatremia Presumed MAGNUS needs sleep study Recent CO2 narcosis on biPAP Plan: Rehab protocol Monitor closely Lovenox 03/21/2022: Increase activity Lovenox 03/22/2022: Work on motivation Tendency for apathy (1) Myopathy MYRNA LOWRY DO Mar 22, 2022 08:08
[2022-03-22 19:55] VITALS: BP 125/78
--- NOTE | 2022-03-23 05:20 | PM&R Progress Note ---
Subjective HPI/CC On Admission Date Seen by Provider: Mar 23, 2022 Time Seen by Provider: 08:30 Subjective/Events-last exam 03/23/2022: Motivation is an issue I told him he needs to stay out of bed More interaction with the patient will be needed 03/22/2022: Patient much improved at bedside had some questions and [employer] social worker will be meeting with her tomorrow Improved status 03/21/2022: Patient much improved Low potassium so will increase supplement Participation is good Tends to be sedentary and likes to be in bed so we will take note of that and increase activity No pain reported BM+ Review of Systems General: Fatigue, Malaise Objective Exam Vital Signs Vital Signs Date Time Temp Pulse Resp B/P (MAP) Pulse Ox O2 Delivery O2 Flow Rate FiO2 03/23/22 20:50 Room Air 03/23/22 19:54 35.9 96 24 128/85 (99) 98 Capillary Refill : General Appearance: No Apparent Distress, WD/WN, Chronically ill, Obese HEENT: PERRL/EOMI, Normal ENT Inspection, Pharynx Normal Neck: Full Range of Motion, Normal Inspection, Non Tender, Supple, Carotid Bruit Respiratory: Chest Non Tender, Lungs Clear, Normal Breath Sounds, No Accessory Muscle Use, No Respiratory Distress Cardiovascular: Regular Rate, Rhythm, No Edema, No Gallop, No JVD, No Murmur, Normal Peripheral Pulses Gastrointestinal: Normal Bowel Sounds, No Organomegaly, No Pulsatile Mass, Non Tender, Soft Back: Normal Inspection, No CVA Tenderness, No Vertebral Tenderness Extremity: Normal Capillary Refill, Normal Inspection, Normal Range of Motion, Non Tender, No Calf Tenderness, No Pedal Edema Neurologic/Psychiatric: Alert, Oriented x3, accounts payable technician II-XII Norm as Tested, Abnormal Gait, Depressed Affect, Motor Weakness (generalized) Skin: Normal Color, Warm/Dry Lymphatic: No Adenopathy Results/Procedures Lab Laboratory Tests 03/23/22 05:35 Patient resulted labs reviewed. FIM Transfers Therapy Code Descriptions/Definitions Functional [place] Measure: 0=Not Assessed/NA 4=Minimal Assistance 1=Total Assistance 5=Supervision or Setup 2=Maximal Assistance 6=Modified [place] 3=Moderate Assistance 7=Complete IndependenceSCALE: Activities may be completed with or without assistive devices. 0-Agwcjtnfcg-prezdry completes the activity by him/herself with no assistance from a helper. 5-Set-up or Clean-up Assistance-helper sets up or cleans up; patient completes activity. [place] assists only prior to or following the activity. 4-Supervision or Touching Assistance-helper provides verbal cues and/or touching/steadying and/or contact guard assistance as patient completes activity. Assistance may be provided throughout the activity or intermittently. 3-Partial/Moderate Assistance-helper does LESS THAN HALF the effort. [place] lifts, holds or supports trunk or limbs, but provides less than half the effort. 2-Substantial/Maximal Assistance-helper does MORE THAN HALF the effort. [place] lifts or holds trunk or limbs and provides more than half the effort. 6-Lkexqadzg-jkvgme does ALL the effort. Patient does none of the effort to complete the activity. Or, the assistance of 2 or more helpers is required for the patient to complete the activity. If activity was not attempted, code reason: 7-Patient Refused. 9-Not Applicable-not attempted and the patient did not perform the activity before the current illness, exacerbation or injury. 10-Not Attempted due to Environmental Limitations-(lack of equipment, weather restraints, etc.). 88-Not Attempted due to Medical Conditions or Safety Concerns. Roll Left to Right (QC): 4 Sit to Lying (QC): 4 Sit to Stand (QC): 3 Chair/Djs-sk-Frmwh Xfer(QC): 4 Car Transfer (QC): 4 Gait Training Does the Patient Walk?: Yes Walk 10 feet (QC): 4 Walk 50 ft with 2 Turns(QC): 4 Walk 150 ft (QC): 88 Walking 10ft/uneven surface-QC: 4 Gait Assistive Device: FWW Wheelchair Training Does the Pt Use a Wheelchair?: No Wheel 50 ft with 2 turns (QC): 9 Wheel 150 ft (QC): 9 Stair Training 1 Step (curb) (QC): 88 4 Steps (QC): 88 12 Steps (QC): 88 Balance Picking up an Object (QC): 4 (CGA using a front end java developer) ADL-Treatment Eating (QC): 6 (Per pt and spouse report.) Oral Hygiene (QC): 4 (SBA) Shower/Bathe Self (QC): 3 (Min A. Assistance washing buttocks, BLE lower legs/feet.) Upper Body Dressing (QC): 5 (set up) Lower Body Dressing (QC): 3 (Mod A. Pt required assistance doffing pants over feet, and donning over L foot. Pt able to perform pant hike and thread R foot. ) On/Off Footwear (QC): 3 (Min A. Pt able to don socks (sock aide) and shoes (slip on). Pt able to doff shoes, assist with doffing socks.) Toileting Hygiene (QC): 3 (Pt able to manage clothing, assistance with hygiene post BM.) Assessment/Plan Assessment and Plan Assess & Plan/Chief Complaint Assessment: Myopathy Alcoholism with recent cessation 6 weeks ago Lumbar spine surgery 05/2021 L3 compression fracture Fall of 2021 [place] Fatty liver Depression BPH DM HTN Hypokalemia Hyponatremia Presumed MAGNUS needs sleep study Recent CO2 narcosis on biPAP Plan: Rehab protocol Monitor closely Lovenox 03/21/2022: Increase activity Lovenox 03/22/2022: Work on motivation Tendency for apathy 03/23/2022: Apathy will be a challenge post DC (1) Myopathy MYRNA LOWRY DO Mar 23, 2022 05:20
[2022-03-23 05:46] LABS: BASOPHILS # (AUTO) 0.1 10^3/uL (0.0-0.1); BASOPHILS % (AUTO) 2 % (0-10); EOSINOPHILS # (AUTO) 0.3 10^3/uL (0.0-0.3); EOSINOPHILS % (AUTO) 6 % (0-10); HEMATOCRIT 33 % (40-54); HEMOGLOBIN 11.1 g/dL (13.3-17.7); LYMPHOCYTES # (AUTO) 2.4 10^3/uL (1.0-4.0); LYMPHOCYTES % (AUTO) 39 % (12-44); MEAN CORPUSCULAR HEMOGLOBIN 31 pg (25-34); MEAN CORPUSCULAR HGB CONC 34 g/dL (32-36); MEAN CORPUSCULAR VOLUME 90 fL (80-99); MEAN PLATELET VOLUME 10.4 fL (9.0-12.2); MONOCYTES # (AUTO) 0.4 10^3/uL (0.0-1.0); MONOCYTES % (AUTO) 7 % (0-12); NEUTROPHILS # (AUTO) 2.9 10^3/uL (1.8-7.8); NEUTROPHILS % (AUTO) 46 % (42-75); PLATELET COUNT 380 10^3/uL (130-400); WHITE BLOOD COUNT 6.2 10^3/uL (4.3-11.0)
[2022-03-23] MEDS: ENOXAPARIN 40 MG/0.4 ML (LOVENOX) SYR SC SCH ×2 (05:46→17:16)
[2022-03-23 05:58] LABS: POTASSIUM 3.7 MMOL/L (3.6-5.0)
[2022-03-23 06:01] LABS: TOTAL PROTEIN 6.3 GM/DL (6.4-8.2)
[2022-03-23 06:02] LABS: BILIRUBIN,TOTAL 0.6 MG/DL (0.1-1.0)
[2022-03-23 06:04] LABS: CREATININE SERUM 0.81 MG/DL (0.60-1.30)
[2022-03-23 06:07] LABS: MAGNESIUM 1.7 MG/DL (1.6-2.4)
[2022-03-23 07:55] VITALS: BP 140/81
[2022-03-23] MEDS: KCL 20 MEQ TAB (K-DUR) PO SCH ×3 (08:19→17:16)
--- NOTE | 2022-03-23 08:19 | Occupational Ther Daily Note ---
OT Current Status-Daily Note Subjective Pt up in recliner, agreeable to OT Tx. Pt requests to defer shower until tomorrow. ADL-Treatment Therapy Code Descriptions/Definitions Functional [place] Measure: 0=Not Assessed/NA 4=Minimal Assistance 1=Total Assistance 5=Supervision or Setup 2=Maximal Assistance 6=Modified [place] 3=Moderate Assistance 7=Complete IndependenceSCALE: Activities may be completed with or without assistive devices. 7-Vakxghtrcz-xswcuvk completes the activity by him/herself with no assistance from a helper. 5-Set-up or Clean-up Assistance-helper sets up or cleans up; patient completes activity. [place] assists only prior to or following the activity. 4-Supervision or Touching Assistance-helper provides verbal cues and/or touching/steadying and/or contact guard assistance as patient completes activity. Assistance may be provided throughout the activity or intermittently. 3-Partial/Moderate Assistance-helper does LESS THAN HALF the effort. [place] lifts, holds or supports trunk or limbs, but provides less than half the effort. 2-Substantial/Maximal Assistance-helper does MORE THAN HALF the effort. [place] lifts or holds trunk or limbs and provides more than half the effort. 3-Mvjuwzarj-dcuznq does ALL the effort. Patient does none of the effort to complete the activity. Or, the assistance of 2 or more helpers is required for the patient to complete the activity. If activity was not attempted, code reason: 7-Patient Refused. 9-Not Applicable-not attempted and the patient did not perform the activity before the current illness, exacerbation or injury. 10-Not Attempted due to Environmental Limitations-(lack of equipment, weather restraints, etc.). 88-Not Attempted due to Medical Conditions or Safety Concerns. Upper Body Dressing (QC): 5 On/Off Footwear: 3 (Min A with getting heels into shoes due to gripper socks) Other Treatment Pt in recliner, donned shoes using back typing element machine operator. Pt had difficulty getting his heels into the shoes due to gripper socks not sliding into shoe easily. Min A required overall. Pt changed his shirt with set up assistance. Pt used FWW to transfer into therapy gym, SBA. OT tx focused on increasing BUE Strength and activity tolerance. Pt completed arm bike, x15 mins, 15-20 Watt resistance, 2 rest breaks. Pt then completed UE reaching task, placing/removing nuts/bolts from block. Pt able to complete x15 nut/bolts, 2 rest breaks. Noted increased difficulty with higher pegs due to decreased shoulder ROM. Pt used FWW to return to his room, SBA. Pt asked if he was done with therapy for the day, OT informed pt about ARU expectations/process and educated pt on his schedule, he verbalized understanding. Post tx, pt in recliner, call light in reach and all needs met. Education OT Patient Education: Correct positioning, Energy conservation, Modified ADL techniques, Progress toward Goal/Update tx plan, Purpose of tx/functional activities, Rehab process Teaching Recipient: Patient Teaching Methods: Discussion Response to Teaching: Verbalize Understanding OT Short Term Goals Short Term Goals Time Frame: Apr 01, 2022 Toileting hygiene: 4 Shower/bathe self: 4 Lower body dressin Putting on/taking off footwear: 4 OT Territory Supervisor Goals Territory Supervisor Goals Time Frame: Apr 10, 2022 Acute change in mental status: 0 Inattention: 0 Disorganized thinkin Altered level of consciousness: 0 Eating (QC): 6 Oral Hygiene (QC): 6 Toileting Hygiene (QC): 6 Shower/Bathe Self (QC): 6 Upper Body Dressing (QC): 6 Lower Body Dressing (QC): 6 On/Off Footwear (QC): 6 Additional Goals: 1-Demonstrate ADL Tasks, 2-Verbalize Understanding, 3- ImproveStrength/Марина 1=Demonstrate adherence to instructed precautions during ADL tasks. 2=Patient will verbalize/demonstrate understanding of assistive devices/modifications for ADL. 3=Patient will improve strength/tolerance for activity to enable patient to perform ADL's. OT Education/Plan Problem List/Assessment Assessment: Decreased Activ Tolerance, Decreased UE Strength, Impaired Funct Balance, Impaired I ADL's, Impaired Self-Care Skills Discharge Recommendations Plan/Recommendations: Continue POC Treatment Plan/Plan of Care Patient would benefit from OT for education, treatment and training to promote independence in ADL's, mobility, safety and/or upper extremity function for ADL's. Plan of Care: ADL Retraining, Functional Mobility, Group Exercise/Act as Ind, UE Funct Exercise/Act Treatment Duration: Apr 10, 2022 Frequency: At least 5 of 7 days/Wk (IRF) Estimated Hrs Per Day: 1.5 hours per day Agreement: Yes Rehab Potential: Good Time Start Time: 08:00 Stop Time: 09:00 DATE: Mar 23, 2022 Total Time Billed (hr/min): 60 Billed Treatment Time 1, ADL (15'), EX (15'), FA 2 (30') IDALIA SCRUGGS OT Mar 23, 2022 08:18
[2022-03-23] MEDS: SENNA W/DOCUSATE (SENOKOT S) TABLET PO SCH ×2 (08:20→20:53)
[2022-03-23] MEDS: DULoxetine 30 MG (CYMBALTA) CAP PO SCH (08:20)
[2022-03-23] MEDS: DOCUSATE SODIUM 100 MG (COLACE) CAP PO SCH ×2 (08:20→20:54)
[2022-03-23] MEDS: polyethylene glycoL POWDER 17 GM (MIRALAX) PACK PO SCH ×2 (08:20→20:54)
[2022-03-23] MEDS: SPIRONOLACTONE 25 MG (ALDACTONE) TAB PO SCH (08:20)
[2022-03-23] MEDS: ACETAMINOPHEN 325 MG TABLET PO PRN ×3 (08:20→20:53)
[2022-03-23] MEDS: FUROSEMIDE 40 MG (LASIX) TAB PO SCH (08:20)
[2022-03-23] MEDS: MICONAZOLE 2% POWDER (DESENEX AF) 90 GM TOP SCH ×2 (08:21→20:53)
--- NOTE | 2022-03-23 10:54 | Physical Therapy Daily Note ---
PT Daily Note-Current Subjective Patient in recliner pre tx, agrees to PT, has unrated pain in legs. Pain Section J - Health Conditions 1. Rarely or not at all 2. Occasionally 3. Frequently 4. Almost constantly 8. Unable to answer Pain Effect on Sleep: 3 Pain Interference with Therapy: 3 Pain Interference w/Day-to-Day: 3 Appearance Patient in recliner post tx with nurse call, phone, tray, all needs met. Mental Status Patient Orientation: Person, Place, Situation Transfers SCALE: Activities may be completed with or without assistive devices. 4-Fibuhbsxgc-ronilkt completes the activity by him/herself with no assistance from a helper. 5-Set-up or Clean-up Assistance-helper sets up or cleans up; patient completes activity. [place] assists only prior to or following the activity. 4-Supervision or Touching Assistance-helper provides verbal cues and/or touching/steadying and/or contact guard assistance as patient completes activi ty. Assistance may be provided throughout the activity or intermittently. 3-Partial/Moderate Assistance-helper does LESS THAN HALF the effort. [place] lifts, holds or supports trunk or limbs, but provides less than half the effort. 2-Substantial/Maximal Assistance-helper does MORE THAN HALF the effort. [place] lifts or holds trunk or limbs and provides more than half the effort. 4-Hhgppxiuh-hgrhzt does ALL the effort. Patient does none of the effort to complete the activity. Or, the assistance of 2 or more helpers is required for the patient to complete the activity. If activity was not attempted, code reason: 7-Patient Refused. 9-Not Applicable-not attempted and the patient did not perform the activity before the current illness, exacerbation or injury. 10-Not Attempted due to Environmental Limitations-(lack of equipment, weather restraints, etc.). 88-Not Attempted due to Medical Conditions or Safety Concerns. Sit to Stand (QC): 4 Chair/Pdp-ej-Amqqe Xfer(QC): 4 SBA with sit to stand and transfers, cues for hand placement. Patient does need min assist to stand from lower surfaces. Gait Training Distance: 150'x2, 100' Walk 10 feet (QC): 4 Walk 50 ft with 2 Turns(QC): 4 Walk 150 ft (QC): 4 Gait Persons Needed: 1 Gait Assistive Device: FWW SBA, very slow ambulation, needs rest break afterward Exercises Standing: Hip Abduction, Heel/toe raises, Marching, Mini squats Standing Reps: 15 NuStep Minutes: 15 NuStep Workload: 4 Treatments transfers, ambulation, LE strengthening Assessment Current Status: Fair Progress Endurance is improving but still fatigues easily, needs frequent rest breaks. PT Short Term Goals Short Term Goals Time Frame: Mar 27, 2022 Sit to stand: 4 (CGA) Chair/yyk-zc-ycfiu transfer: 4 (SBA) Walk 10 feet: 4 (SBA) Walk 50 feet with two turns: 4 (SBA) Walk 150 feet: 4 (SBA) PT Hosiery Mender Goals Hosiery Mender Goals PT [facility] Goals Time Frame: Apr 03, 2022 Roll Left & Right (QC): 6 Sit to Lying (QC): 6 Lying-Sitting on Side/Bed(QC): 6 Sit to Stand (QC): 6 Chair/Chs-nw-Zdjzb Xfer(QC): 6 Toilet Transfer (QC): 6 Car Transfer (QC): 6 Does the Patient Walk: Yes Walk 10 feet (QC): 6 Walk 50ft with 2 Turns (QC): 6 Walk 150 ft (QC): 6 Walking 10ft on Uneven Surface: 6 1 Step (curb) (QC): 4 4 Steps (QC): 4 12 Steps (QC): 88 Picking up an Object (QC): 6 Wheel 50 feet with 2 turns (QC: 9 Wheel 150 feet: 9 PT Plan Problem List Problem List: Activity Tolerance, Functional Strength, Safety, Balance, Gait, Transfer, Bed Mobility, ROM Treatment/Plan Treatment Plan: Continue Plan of Care Treatment Plan: Bed Mobility, Education, Functional Activity Марина, Functional Strength, Group Therapy, Gait, Safety, Therapeutic Exercise, Transfers Treatment Duration: Apr 03, 2022 Frequency: At least 5 of 7 days/Wk (IRF) Estimated Hrs Per Day: 1.5 hours per day Patient and/or Family Agrees t: Yes Safety Risks/Education Patient Education: Gait Training, Transfer Techniques, Correct Positioning, Safety Issues Teaching Recipient: Patient Teaching Methods: Demonstration, Discussion Response to Teaching: Reinforcement Needed Time Time In: 1000 Time Out: 1100 DATE: Mar 23, 2022 Total Billed Treatment Time: 60 Total Billed Treatment 1 visit EX 30' FA 30' STU OATES PT Mar 23, 2022 10:54
--- NOTE | 2022-03-23 11:34 | Progress Note ---
PARISA LOPEZ 03/23/22 1134: Progress Note Patient is alert and oriented Denies pain or concerns Potassium is stable Bowel movement this morning Ambulating well RAQUEL LOWRY DO 03/24/22 0518: Supervisory-Addendum Brief Verification & Attestation Participated in pt care: history, MDM, physical Personally performed: exam, history, MDM, supervision of care Care discussed with: Medical Student Procedures: n/a Results interpretation: Verified all documentation Verification and Attestation of Medical Student E/M Service A medical student performed and documented this service in my presence. I reviewed and verified all information documented by the medical student and made modifications to such information, when appropriate. I personally performed the physical exam and medical decision making. Raquel Lowry, Mar 24, 2022,05:18 PARISA LOPEZ Mar 23, 2022 11:34 RAQUEL LOWRY DO Mar 24, 2022 05:18
--- NOTE | 2022-03-23 11:42 | Occupational Ther Daily Note ---
OT Current Status-Daily Note Subjective Pt in recliner, agreeable to OT Tx. ADL-Treatment Therapy Code Descriptions/Definitions Functional [place] Measure: 0=Not Assessed/NA 4=Minimal Assistance 1=Total Assistance 5=Supervision or Setup 2=Maximal Assistance 6=Modified [place] 3=Moderate Assistance 7=Complete IndependenceSCALE: Activities may be completed with or without assistive devices. 7-Uopajrrasm-txbvmgu completes the activity by him/herself with no assistance from a helper. 5-Set-up or Clean-up Assistance-helper sets up or cleans up; patient completes activity. [place] assists only prior to or following the activity. 4-Supervision or Touching Assistance-helper provides verbal cues and/or touching/steadying and/or contact guard assistance as patient completes activity. Assistance may be provided throughout the activity or intermittently. 3-Partial/Moderate Assistance-helper does LESS THAN HALF the effort. [place] lifts, holds or supports trunk or limbs, but provides less than half the effort. 2-Substantial/Maximal Assistance-helper does MORE THAN HALF the effort. [place] lifts or holds trunk or limbs and provides more than half the effort. 1-Ugdrbafla-hjpmpf does ALL the effort. Patient does none of the effort to compl ete the activity. Or, the assistance of 2 or more helpers is required for the patient to complete the activity. If activity was not attempted, code reason: 7-Patient Refused. 9-Not Applicable-not attempted and the patient did not perform the activity before the current illness, exacerbation or injury. 10-Not Attempted due to Environmental Limitations-(lack of equipment, weather restraints, etc.). 88-Not Attempted due to Medical Conditions or Safety Concerns. Other Treatment OT tx focused on increasing BUE Strength and activity tolerance. Pt completed 5/5 UE exercises using moderate resistance (red) theraband, x15 reps each. Pt had difficulty with 3 shoulder exercises due to decreased shoulder ROM. Pt indicates his shoulders have had troubles for quite some time. Pt attempted to complete exercises to the best of his ability. Post tx, pt in recliner, call sneha paul in reach and all needs met. OT Short Term Goals Short Term Goals Time Frame: Apr 01, 2022 Toileting hygiene: 4 Shower/bathe self: 4 Lower body dressin Putting on/taking off footwear: 4 OT Longterm Goals Longterm Goals Time Frame: Apr 10, 2022 Acute change in mental status: 0 Inattention: 0 Disorganized thinkin Altered level of consciousness: 0 Eating (QC): 6 Oral Hygiene (QC): 6 Toileting Hygiene (QC): 6 Shower/Bathe Self (QC): 6 Upper Body Dressing (QC): 6 Lower Body Dressing (QC): 6 On/Off Footwear (QC): 6 Additional Goals: 1-Demonstrate ADL Tasks, 2-Verbalize Understanding, 3- ImproveStrength/Марина 1=Demonstrate adherence to instructed precautions during ADL tasks. 2=Patient will verbalize/demonstrate understanding of assistive devices/modifications for ADL. 3=Patient will improve strength/tolerance for activity to enable patient to perform ADL's. OT Education/Plan Problem List/Assessment Assessment: Decreased Activ Tolerance, Decreased UE Strength, Impaired Funct Balance, Impaired I ADL's, Impaired Self-Care Skills, Restricted Funct UE ROM Discharge Recommendations Plan/Recommendations: Continue POC Treatment Plan/Plan of Care Patient would benefit from OT for education, treatment and training to promote independence in ADL's, mobility, safety and/or upper extremity function for ADL's. Plan of Care: ADL Retraining, Functional Mobility, Group Exercise/Act as Ind, UE Funct Exercise/Act Treatment Duration: Apr 10, 2022 Frequency: At least 5 of 7 days/Wk (IRF) Estimated Hrs Per Day: 1.5 hours per day Agreement: Yes Rehab Potential: Good Time Start Time: 11:30 Stop Time: 12:00 DATE: Mar 23, 2022 Total Time Billed (hr/min): 30 Billed Treatment Time 1, EX 2 IDALIA SCRUGGS OT Mar 23, 2022 11:42
--- NOTE | 2022-03-23 13:24 | Physical Therapy Daily Note ---
PT Daily Note-Current Subjective Patient in recliner pre tx, agrees to PT, has 10/10 pain in legs patient says. Nurse notified of pain. Pain Section J - Health Conditions 1. Rarely or not at all 2. Occasionally 3. Frequently 4. Almost constantly 8. Unable to answer Pain Effect on Sleep: 3 Pain Interference with Therapy: 3 Pain Interference w/Day-to-Day: 3 Appearance Patient in recliner post tx with nurse call, phone, tray, all needs met. Mental Status Patient Orientation: Person, Place, Situation Transfers SCALE: Activities may be completed with or without assistive devices. 4-Wtzcbdiiyb-uvwjvcl completes the activity by him/herself with no assistance from a helper. 5-Set-up or Clean-up Assistance-helper sets up or cleans up; patient completes activity. [place] assists only prior to or following the activity. 4-Supervision or Touching Assistance-helper provides verbal cues and/or touching/steadying and/or contact guard assistance as patient completes activity. Assistance may be provided throughout the activity or intermittently. 3-Partial/Moderate Assistance-helper does LESS THAN HALF the effort. [place] lifts, holds or supports trunk or limbs, but provides less than half the effort. 2-Substantial/Maximal Assistance-helper does MORE THAN HALF the effort. [place] lifts or holds trunk or limbs and provides more than half the effort. 6-Ienlboomk-xmhjrm does ALL the effort. Patient does none of the effort to complete the activity. Or, the assistance of 2 or more helpers is required for the patient to complete the activity. If activity was not attempted, code reason: 7-Patient Refused. 9-Not Applicable-not attempted and the patient did not perform the activity before the current illness, exacerbation or injury. 10-Not Attempted due to Environmental Limitations-(lack of equipment, weather restraints, etc.). 88-Not Attempted due to Medical Conditions or Safety Concerns. Sit to Stand (QC): 4 Chair/Irg-tq-Jwvia Xfer(QC): 4 Patient ambulates into the restroom to urinate, he manages his pants and everything on his own. Gait Training Distance: 150'x2 Walk 10 feet (QC): 4 Walk 50 ft with 2 Turns(QC): 4 Walk 150 ft (QC): 4 Gait Persons Needed: 1 Gait Assistive Device: FWW Very slow ambulation, decreased foot clearance, patient is pretty fatigued after ambulating 150' and needs a significant rest break. Treatments transfers, ambulation Assessment Current Status: Fair Progress improving endurance, increased pain PT Short Term Goals Short Term Goals Time Frame: Mar 27, 2022 Sit to stand: 4 (CGA) Chair/qnj-ep-swppu transfer: 4 (SBA) Walk 10 feet: 4 (SBA) Walk 50 feet with two turns: 4 (SBA) Walk 150 feet: 4 (SBA) PT Senior Care Goals Lift Truck Mechanic Goals PT Senior Care Goals Time Frame: Apr 03, 2022 Roll Left & Right (QC): 6 Sit to Lying (QC): 6 Lying-Sitting on Side/Bed(QC): 6 Sit to Stand (QC): 6 Chair/Lth-ez-Qjmfa Xfer(QC): 6 Toilet Transfer (QC): 6 Car Transfer (QC): 6 Does the Patient Walk: Yes Walk 10 feet (QC): 6 Walk 50ft with 2 Turns (QC): 6 Walk 150 ft (QC): 6 Walking 10ft on Uneven Surface: 6 1 Step (curb) (QC): 4 4 Steps (QC): 4 12 Steps (QC): 88 Picking up an Object (QC): 6 Wheel 50 feet with 2 turns (QC: 9 Wheel 150 feet: 9 PT Plan Problem List Problem List: Activity Tolerance, Functional Strength, Safety, Balance, Gait, Transfer, Bed Mobility, ROM Treatment/Plan Treatment Plan: Continue Plan of Care Treatment Plan: Bed Mobility, Education, Functional Activity Марина, Functional Strength, Group Therapy, Gait, Safety, Therapeutic Exercise, Transfers Treatment Duration: Apr 03, 2022 Frequency: At least 5 of 7 days/Wk (IRF) Estimated Hrs Per Day: 1.5 hours per day Patient and/or Family Agrees t: Yes Safety Risks/Education Patient Education: Gait Training, Transfer Techniques, Correct Positioning, Safety Issues Teaching Recipient: Patient Teaching Methods: Demonstration, Discussion Response to Teaching: Reinforcement Needed Time Time In: 1255 Time Out: 1325 DATE: Mar 23, 2022 Total Billed Treatment Time: 30 Total Billed Treatment 1 visit FA 30' STU OATES PT Mar 23, 2022 13:24
[2022-03-23] MEDS ORDERED: GLIM4TAB5 PO (15:11)
--- NOTE | 2022-03-23 17:40 | Podiatry Progress Note ---
Standard Progress Note Progress Notes/Assess & Plan Date Seen by a Provider: Mar 23, 2022 Time Seen by a Provider: 17:39 Progress/Assessment & Plan Consultation was dictated. Foot care given. Diabetic Peripheral Neuropathy, Onychomycosis, Final Diagnosis Diabetic Peripheral Neuropathy, Onychomycosis, JAX MIKE DPAllan Mar 23, 2022 17:40
--- NOTE | 2022-03-23 18:06 | CONSULTATION REPORT ---
DATE OF SERVICE: 03/23/2022 REASON FOR CONSULTATION: Diabetic foot care. HISTORY OF PRESENT ILLNESS: This 51-year-old male was admitted with history of diabetes and alcoholism, lumbar spine issues with surgery accomplished in [place] in 05/2021. He is currently in rehabilitation to help with weakness and activities of daily living. He has difficulty reaching for and caring for his diabetic feet. He reports that he has had frequent falls, one resulting in a compression fracture of the L3. PAST MEDICAL HISTORY: Includes lumbar spine surgery as indicated above, sleep apnea, hypertension, prostate issues, fatty liver, arthritis, back pain, diabetes and non-insulin dependent. SOCIAL HISTORY: The patient indicates that he is a presley. He is and frequent alcohol use, former smoker. CURRENT MEDICATIONS: Listed on the patient's chart. ALLERGIES: LISTED ON THE PATIENT'S CHART. PHYSICAL EXAMINATION: EXTREMITIES: On lower extremity examination, the patient has 2/4 dorsalis pedis pulse bilaterally, 0/4 posterior tibial pulse bilaterally. Capillary fill time is less than 3 seconds. NEUROLOGICAL: The patient has diminished protective sensation with 10 gram monofilament examination bilaterally. Diminished deep tendon reflexes to the Achilles tendon bilaterally and vibratory sensation is also diminished to the forefoot bilaterally. INTEGUMENT: The patient has thick yellow dystrophic toenails with subungual debris associated with R1, 2, 3, 4, and 5 digits and L1, 2, 3, 4, and 5 digits. Dry scaly skin noted to the heels, but no open lesions are identified. The patient has 5/5 muscle strength of the 4 major quadrants of the foot. There is adductovarus contracture of the fifth toe bilaterally. ASSESSMENT: 1. Atherosclerosis. 2. Diabetic neuropathy. 3. Onychomycosis xerosis. 4. Hammer digit syndrome. PLAN: Various treatment options were discussed with the patient today. We discussed diabetic foot care in general. Because this patient is at risk patient, recommend routine foot care to help protect him from trying to trim his own nails and cutting into his own flesh. His toenails were debrided today manually and mechanically. Betadine applied to R1, 2, 3, 4, and 5 and L1, 2, 3, 4, and 5 digits. We also discussed appropriate shoe gear and fit and how we can protect his feet from being compromised and developed ulcerations or other complications. Lotion to the heels would be appropriate on a daily basis. We will see the patient back as necessary, but I would recommend at least every 6 months. Job ID: [id number] DocumentID: [id number] Dictated Date: 03/23/2022 17:38:50 Emergency Room Clerk Date: 03/23/2022 18:04:00 Dictated By: MEJIA PERRY
[2022-03-23 19:54] VITALS: BP 128/85
--- NOTE | 2022-03-24 06:29 | PM&R Progress Note ---
Subjective HPI/CC On Admission Date Seen by Provider: Mar 24, 2022 Time Seen by Provider: 08:30 Subjective/Events-last exam 03/24/2022: Doing well Moving around better OOB more each day No pain reported except chronic back 03/23/2022: Motivation is an issue I told him he needs to stay out of bed More interaction with the patient will be needed 03/22/2022: Patient much improved at bedside had some questions and social media manager will be meeting with her tomorrow Improved status 03/21/2022: Patient much improved Low potassium so will increase supplement Participation is good Tends to be sedentary and likes to be in bed so we will take note of that and increase activity No pain reported BM+ Review of Systems General: Fatigue, Malaise Objective Exam Vital Signs Vital Signs Date Time Temp Pulse Resp B/P (MAP) Pulse Ox O2 Delivery O2 Flow Rate FiO2 03/24/22 09:37 Room Air 03/24/22 07:51 36.9 101 18 139/91 (107) 93 Capillary Refill : General Appearance: No Apparent Distress, WD/WN, Chronically ill, Obese HEENT: PERRL/EOMI, Normal ENT Inspection, Pharynx Normal Neck: Full Range of Motion, Normal Inspection, Non Tender, Supple, Carotid Bruit Respiratory: Chest Non Tender, Lungs Clear, Normal Breath Sounds, No Accessory Muscle Use, No Respiratory Distress Cardiovascular: Regular Rate, Rhythm, No Edema, No Gallop, No JVD, No Murmur, Normal Peripheral Pulses Gastrointestinal: Normal Bowel Sounds, No Organomegaly, No Pulsatile Mass, Non Tender, Soft Back: Normal Inspection, No CVA Tenderness, No Vertebral Tenderness Extremity: Normal Capillary Refill, Normal Inspection, Normal Range of Motion, Non Tender, No Calf Tenderness, No Pedal Edema Neurologic/Psychiatric: Alert, Oriented x3, customer engagement representative II-XII Norm as Tested, Abnormal Gait, Depressed Affect, Motor Weakness (generalized) Skin: Normal Color, Warm/Dry Lymphatic: No Adenopathy Results/Procedures Lab Patient resulted labs reviewed. FIM Transfers Therapy Code Descriptions/Definitions Functional [place] Measure: 0=Not Assessed/NA 4=Minimal Assistance 1=Total Assistance 5=Supervision or Setup 2=Maximal Assistance 6=Modified [place] 3=Moderate Assistance 7=Complete IndependenceSCALE: Activities may be completed with or without assistive devices. 5-Jppxvavmie-flifzhh completes the activity by him/herself with no assistance from a helper. 5-Set-up or Clean-up Assistance-helper sets up or cleans up; patient completes activity. [place] assists only prior to or following the activity. 4-Supervision or Touching Assistance-helper provides verbal cues and/or touching/steadying and/or contact guard assistance as patient completes activity. Assistance may be provided throughout the activity or intermittently. 3-Partial/Moderate Assistance-helper does LESS THAN HALF the effort. [place] lifts, holds or supports trunk or limbs, but provides less than half the effort. 2-Substantial/Maximal Assistance-helper does MORE THAN HALF the effort. [place] lifts or holds trunk or limbs and provides more than half the effort. 1-Zqwsdekxp-loccgg does ALL the effort. Patient does none of the effort to complete the activity. Or, the assistance of 2 or more helpers is required for the patient to complete the activity. If activity was not attempted, code reason: 7-Patient Refused. 9-Not Applicable-not attempted and the patient did not perform the activity before the current illness, exacerbation or injury. 10-Not Attempted due to Environmental Limitations-(lack of equipment, weather restraints, etc.). 88-Not Attempted due to Medical Conditions or Safety Concerns. Roll Left to Right (QC): 4 Sit to Lying (QC): 4 Sit to Stand (QC): 4 Chair/Zqd-gi-Fdkqk Xfer(QC): 4 Car Transfer (QC): 4 Gait Training Does the Patient Walk?: Yes Distance: 150'x2 Walk 10 feet (QC): 4 Walk 50 ft with 2 Turns(QC): 4 Walk 150 ft (QC): 4 Walking 10ft/uneven surface-QC: 4 Gait Persons Needed: 1 Gait Assistive Device: FWW Wheelchair Training Does the Pt Use a Wheelchair?: No Wheel 50 ft with 2 turns (QC): 9 Wheel 150 ft (QC): 9 Stair Training 1 Step (curb) (QC): 88 4 Steps (QC): 88 12 Steps (QC): 88 Balance Picking up an Object (QC): 4 (CGA using a marketing officer) ADL-Treatment Eating (QC): 6 (Per pt and spouse report.) Oral Hygiene (QC): 4 (SBA) Shower/Bathe Self (QC): 3 (Min A. Assistance washing buttocks, BLE lower legs/feet.) Upper Body Dressing (QC): 5 Lower Body Dressing (QC): 3 (Mod A. Pt required assistance doffing pants over feet, and donning over L foot. Pt able to perform pant hike and thread R foot. ) On/Off Footwear (QC): 3 (Min A with getting heels into shoes due to gripper socks) Toileting Hygiene (QC): 3 (Pt able to manage clothing, assistance with hygiene post BM.) Assessment/Plan Assessment and Plan Assess & Plan/Chief Complaint Assessment: Myopathy Alcoholism with recent cessation 6 weeks ago Lumbar spine surgery 05/2021 L3 compression fracture Fall of 2021 [place] Fatty liver Depression BPH DM HTN Hypokalemia Hyponatremia Presumed MAGNUS needs sleep study Recent CO2 narcosis on biPAP Plan: Rehab protocol Monitor closely Lovenox 03/21/2022: Increase activity Lovenox 03/22/2022: Work on motivation Tendency for apathy 03/23/2022: Apathy will be a challenge post DC 03/24/2022: Talked about MAGNUS again Monitor closely (1) Myopathy MYRNA LOWRY DO Mar 24, 2022 06:29
[2022-03-24] MEDS: ENOXAPARIN 40 MG/0.4 ML (LOVENOX) SYR SC SCH ×2 (06:36→17:33)
[2022-03-24 07:23] VITALS: BP 139/91
[2022-03-24] MEDS: ACETAMINOPHEN 325 MG TABLET PO PRN (07:24)
[2022-03-24 07:51] VITALS: BP 139/91
[2022-03-24] MEDS: DULoxetine 30 MG (CYMBALTA) CAP PO SCH ×2 (08:06→09:09)
[2022-03-24] MEDS: KCL 20 MEQ TAB (K-DUR) PO SCH ×3 (08:06→17:33)
[2022-03-24] MEDS: SPIRONOLACTONE 25 MG (ALDACTONE) TAB PO SCH (08:06)
[2022-03-24] MEDS: MICONAZOLE 2% POWDER (DESENEX AF) 90 GM TOP SCH ×2 (08:06→18:26)
[2022-03-24] MEDS: FUROSEMIDE 40 MG (LASIX) TAB PO SCH (08:06)
[2022-03-24] MEDS: SENNA W/DOCUSATE (SENOKOT S) TABLET PO SCH ×2 (08:08→21:00)
[2022-03-24] MEDS: DOCUSATE SODIUM 100 MG (COLACE) CAP PO SCH ×2 (08:08→21:00)
[2022-03-24] MEDS: polyethylene glycoL POWDER 17 GM (MIRALAX) PACK PO SCH ×2 (08:08→21:00)
--- NOTE | 2022-03-24 09:58 | Occupational Ther Daily Note ---
OT Current Status-Daily Note Subjective Pt up in recliner, agreeable to OT tx. ADL-Treatment Therapy Code Descriptions/Definitions Functional [place] Measure: 0=Not Assessed/NA 4=Minimal Assistance 1=Total Assistance 5=Supervision or Setup 2=Maximal Assistance 6=Modified [place] 3=Moderate Assistance 7=Complete IndependenceSCALE: Activities may be completed with or without assistive devices. 7-Goibdljdkl-rmkkkqs completes the activity by him/herself with no assistance from a helper. 5-Set-up or Clean-up Assistance-helper sets up or cleans up; patient completes activity. [place] assists only prior to or following the activity. 4-Supervision or Touching Assistance-helper provides verbal cues and/or touching/steadying and/or contact guard assistance as patient completes activity. Assistance may be provided throughout the activity or intermittently. 3-Partial/Moderate Assistance-helper does LESS THAN HALF the effort. [place] lifts, holds or supports trunk or limbs, but provides less than half the effort. 2-Substantial/Maximal Assistance-helper does MORE THAN HALF the effort. [place] lifts or holds trunk or limbs and provides more than half the effort. 5-Ikyagwqhm-rqkedl does ALL the effort. Patient does none of the effort to co mplete the activity. Or, the assistance of 2 or more helpers is required for the patient to complete the activity. If activity was not attempted, code reason: 7-Patient Refused. 9-Not Applicable-not attempted and the patient did not perform the activity before the current illness, exacerbation or injury. 10-Not Attempted due to Environmental Limitations-(lack of equipment, weather restraints, etc.). 88-Not Attempted due to Medical Conditions or Safety Concerns. Shower/Bathe Self (QC): 3 (Min A with washing buttocks. Pt provided with LH sponge and able to wash LEs.) Upper Body Dressing (QC): 5 Lower Body Dressing (QC): 3 (Min A overall) On/Off Footwear: 5 Toileting Hygiene (QC): 3 (Pt able to manage pants, assist with hygiene.) Toilet Transfer (QC): 4 (SBA) Other Treatment Pt in recliner, used FWW to transfer into bathroom and onto SC. Pt doffed clothes, requests to use toilet. Pt transferred to toilet, SBA using FWW. Pt completed toileting. Education provided on toilet aide for posterior hygiene, pt attempted to use device, but unable to thoroughly clean buttocks. Pt returned to AR, completed shower, donned socks using sock aide, then transferred to EOB using FWW with SBA. Pt donned UE/LE clothing at EOB. Pt transferred sit to [facility], SBA. Post tx, pt in bed, call light in reach and all needs met. Education OT Patient Education: Correct positioning, Energy conservation, Modified ADL techniques, Progress toward Goal/Update tx plan, Purpose of tx/functional activities, Rehab process Teaching Recipient: Patient Teaching Methods: Discussion Response to Teaching: Verbalize Understanding OT Short Term Goals Short Term Goals Time Frame: Apr 01, 2022 Toileting hygiene: 4 Shower/bathe self: 4 Lower body dressin Putting on/taking off footwear: 4 OT Halfway Goals Halfway Goals Time Frame: Apr 10, 2022 Acute change in mental status: 0 Inattention: 0 Disorganized thinkin Altered level of consciousness: 0 Eating (QC): 6 Oral Hygiene (QC): 6 Toileting Hygiene (QC): 6 Shower/Bathe Self (QC): 6 Upper Body Dressing (QC): 6 Lower Body Dressing (QC): 6 On/Off Footwear (QC): 6 Additional Goals: 1-Demonstrate ADL Tasks, 2-Verbalize Understanding, 3- ImproveStrength/Марина 1=Demonstrate adherence to instructed precautions during ADL tasks. 2=Patient will verbalize/demonstrate understanding of assistive devices/modifications for ADL. 3=Patient will improve strength/tolerance for activity to enable patient to perform ADL's. OT Education/Plan Problem List/Assessment Assessment: Decreased Activ Tolerance, Decreased UE Strength, Impaired Funct Balance, Impaired I ADL's, Impaired Self-Care Skills, Restricted Funct UE ROM Discharge Recommendations Plan/Recommendations: Continue POC Treatment Plan/Plan of Care Patient would benefit from OT for education, treatment and training to promote independence in ADL's, mobility, safety and/or upper extremity function for ADL's. Plan of Care: ADL Retraining, Functional Mobility, Group Exercise/Act as Ind, UE Funct Exercise/Act Treatment Duration: Apr 10, 2022 Frequency: At least 5 of 7 days/Wk (IRF) Estimated Hrs Per Day: 1.5 hours per day Agreement: Yes Rehab Potential: Good Time Start Time: 09:00 Stop Time: 10:00 DATE: Mar 24, 2022 Total Time Billed (hr/min): 60 Billed Treatment Time 1, ADL 4 IDALIA SCRUGGS OT Mar 24, 2022 09:58
--- NOTE | 2022-03-24 12:10 | Physical Therapy Daily Note ---
PT Daily Note-Current Subjective Pt laying Supine in bed upon arrival. Pt agrees to PT. Pain Location: No Pain Reported Section J - Health Conditions 1. Rarely or not at all 2. Occasionally 3. Frequently 4. Almost constantly 8. Unable to answer Pain Effect on Sleep: 3 Pain Interference with Therapy: 3 Pain Interference w/Day-to-Day: 3 Mental Status Patient Orientation: Person, Place, Situation Transfers SCALE: Activities may be completed with or without assistive devices. 8-Reyhkatnom-umsujcm completes the activity by him/herself with no assistance from a helper. 5-Set-up or Clean-up Assistance-helper sets up or cleans up; patient completes activity. [place] assists only prior to or following the activity. 4-Supervision or Touching Assistance-helper provides verbal cues and/or touching/steadying and/or contact guard assistance as patient completes activity. Assistance may be provided throughout the activity or intermittently. 3-Partial/Moderate Assistance-helper does LESS THAN HALF the effort. [place] lifts, holds or supports trunk or limbs, but provides less than half the effort. 2-Substantial/Maximal Assistance-helper does MORE THAN HALF the effort. [place] lifts or holds trunk or limbs and provides more than half the effort. 2-Jojehjoxo-rffnvm does ALL the effort. Patient does none of the effort to complete the activity. Or, the assistance of 2 or more helpers is required for the patient to complete the activity. If activity was not attempted, code reason: 7-Patient Refused. 9-Not Applicable-not attempted and the patient did not perform the activity before the current illness, exacerbation or injury. 10-Not Attempted due to Environmental Limitations-(lack of equipment, weather restraints, etc.). 88-Not Attempted due to Medical Conditions or Safety Concerns. Sit to Stand (QC): 4 Weight Bearing Full Weight Bearing Full Weight Bearing Gait Training Does the Patient Walk?: Yes Distance: 150' Walk 10 feet (QC): 5 Walk 50 ft with 2 Turns(QC): 5 Walk 150 ft (QC): 5 Gait Assistive Device: FWW Exercises Seated Therapy Exercises: Ankle pumps, Long arc quads, Hip flexion, Hip abd/add Seated Reps: 15 NuStep Minutes: 15 NuStep Workload: 4 Treatments TF from Supine to EOB then rest for dizziness before TF to standing. Pt amb. to BR. Pt amb. in hallway needing RB after amb. Pt uses NuStep w/several RB for fatigue. Pt completes Seated EX before amb. in hallway and returning to room [facility] in recliner for lunch. All needs met, call light in hand. Assessment Current Status: Fair Progress Several RB during amb. and NuStep use PT Short Term Goals Short Term Goals Time Frame: Mar 27, 2022 Sit to stand: 4 (CGA) Chair/tow-wn-yqdfu transfer: 4 (SBA) Walk 10 feet: 4 (SBA) Walk 50 feet with two turns: 4 (SBA) Walk 150 feet: 4 (SBA) PT Chcf Goals Neck Band Operator Goals PT Neck Band Operator Goals Time Frame: Apr 03, 2022 Roll Left & Right (QC): 6 Sit to Lying (QC): 6 Lying-Sitting on Side/Bed(QC): 6 Sit to Stand (QC): 6 Chair/Gdp-sz-Rmxzh Xfer(QC): 6 Toilet Transfer (QC): 6 Car Transfer (QC): 6 Does the Patient Walk: Yes Walk 10 feet (QC): 6 Walk 50ft with 2 Turns (QC): 6 Walk 150 ft (QC): 6 Walking 10ft on Uneven Surface: 6 1 Step (curb) (QC): 4 4 Steps (QC): 4 12 Steps (QC): 88 Picking up an Object (QC): 6 Wheel 50 feet with 2 turns (QC: 9 Wheel 150 feet: 9 PT Plan Problem List Problem List: Activity Tolerance, Functional Strength Treatment/Plan Treatment Plan: Continue Plan of Care Treatment Plan: Bed Mobility, Education, Functional Activity Марина, Functional Strength, Group Therapy, Gait, Safety, Therapeutic Exercise, Transfers Treatment Duration: Apr 03, 2022 Frequency: At least 5 of 7 days/Wk (IRF) Estimated Hrs Per Day: 1.5 hours per day Patient and/or Family Agrees t: Yes Time Time In: 1100 Time Out: 1200 DATE: Mar 24, 2022 Total Billed Treatment Time: 60 Total Billed Treatment 1, GT (20m), FA (15m) & EX x2 (25m) THIAGO DOE FLOUR MIXER Mar 24, 2022 12:10
--- NOTE | 2022-03-24 13:09 | Occupational Ther Daily Note ---
OT Current Status-Daily Note Subjective Pt in recliner, just completed toileting with nursing staff. Pt agreeable to OT Tx. ADL-Treatment Therapy Code Descriptions/Definitions Functional [place] Measure: 0=Not Assessed/NA 4=Minimal Assistance 1=Total Assistance 5=Supervision or Setup 2=Maximal Assistance 6=Modified [place] 3=Moderate Assistance 7=Complete IndependenceSCALE: Activities may be completed with or without assistive devices. 0-Mkkmutgxsl-spjmkma completes the activity by him/herself with no assistance from a helper. 5-Set-up or Clean-up Assistance-helper sets up or cleans up; patient completes a ctivity. [place] assists only prior to or following the activity. 4-Supervision or Touching Assistance-helper provides verbal cues and/or touching/steadying and/or contact guard assistance as patient completes activity. Assistance may be provided throughout the activity or intermittently. 3-Partial/Moderate Assistance-helper does LESS THAN HALF the effort. [place] lifts, holds or supports trunk or limbs, but provides less than half the effort. 2-Substantial/Maximal Assistance-helper does MORE THAN HALF the effort. [place] lifts or holds trunk or limbs and provides more than half the effort. 6-Dptwmkojn-cddtkx does ALL the effort. Patient does none of the effort to complete the activity. Or, the assistance of 2 or more helpers is required for the patient to complete the activity. If activity was not attempted, code reason: 7-Patient Refused. 9-Not Applicable-not attempted and the patient did not perform the activity before the current illness, exacerbation or injury. 10-Not Attempted due to Environmental Limitations-(lack of equipment, weather restraints, etc.). 88-Not Attempted due to Medical Conditions or Safety Concerns. Other Treatment Pt used FWW to transfer into therapy gym, SBA. OT Tx focused on increasing BUE strength and activity tolerance. Pt completed arm bike x15 mins, rest breaks as needed, 15 watt resistance. Pt used FWW to return to his room, SBA, transferring to recliner. Post tx, pt in recliner, call light in reach and all needs met. OT Short Term Goals Short Term Goals Time Frame: Apr 01, 2022 Toileting hygiene: 4 Shower/bathe self: 4 Lower body dressin Putting on/taking off footwear: 4 OT Fci Goals Fci Goals Time Frame: Apr 10, 2022 Acute change in mental status: 0 Inattention: 0 Disorganized thinkin Altered level of consciousness: 0 Eating (QC): 6 Oral Hygiene (QC): 6 Toileting Hygiene (QC): 6 Shower/Bathe Self (QC): 6 Upper Body Dressing (QC): 6 Lower Body Dressing (QC): 6 On/Off Footwear (QC): 6 Additional Goals: 1-Demonstrate ADL Tasks, 2-Verbalize Understanding, 3- ImproveStrength/Марина 1=Demonstrate adherence to instructed precautions during ADL tasks. 2=Patient will verbalize/demonstrate understanding of assistive devices/mod ifications for ADL. 3=Patient will improve strength/tolerance for activity to enable patient to perform ADL's. OT Education/Plan Problem List/Assessment Assessment: Decreased Activ Tolerance, Decreased UE Strength, Impaired Funct Balance, Impaired I ADL's, Impaired Self-Care Skills Discharge Recommendations Plan/Recommendations: Continue POC Treatment Plan/Plan of Care Patient would benefit from OT for education, treatment and training to promote independence in ADL's, mobility, safety and/or upper extremity function for ADL's. Plan of Care: ADL Retraining, Functional Mobility, Group Exercise/Act as Ind, UE Funct Exercise/Act Treatment Duration: Apr 10, 2022 Frequency: At least 5 of 7 days/Wk (IRF) Estimated Hrs Per Day: 1.5 hours per day Agreement: Yes Rehab Potential: Good Time Start Time: 13:00 Stop Time: 13:30 DATE: Mar 24, 2022 Total Time Billed (hr/min): 30 Billed Treatment Time 1, EX 2 IDALIA SCRUGGS OT Mar 24, 2022 13:09
--- NOTE | 2022-03-24 14:14 | Physical Therapy Daily Note ---
PT Daily Note-Current Subjective Patient in recliner pre tx, agrees to PT, has 8-9/10 pain in legs. Pain Section J - Health Conditions 1. Rarely or not at all 2. Occasionally 3. Frequently 4. Almost constantly 8. Unable to answer Pain Effect on Sleep: 3 Pain Interference with Therapy: 3 Pain Interference w/Day-to-Day: 3 Appearance Patient in bed post tx with nurse call, phone, tray, all needs met. Mental Status Patient Orientation: Person, Place, Situation Transfers SCALE: Activities may be completed with or without assistive devices. 1-Khgmwlhcoc-zvebibl completes the activity by him/herself with no assistance from a helper. 5-Set-up or Clean-up Assistance-helper sets up or cleans up; patient completes activity. [place] assists only prior to or following the activity. 4-Supervision or Touching Assistance-helper provides verbal cues and/or touching/steadying and/or contact guard assistance as patient completes activity. Assistance may be provided throughout the activity or intermittently. 3-Partial/Moderate Assistance-helper does LESS THAN HALF the effort. [place] lifts, holds or supports trunk or limbs, but provides less than half the effort. 2-Substantial/Maximal Assistance-helper does MORE THAN HALF the effort. [place] lifts or holds trunk or limbs and provides more than half the effort. 8-Mfhquslva-gajwkt does ALL the effort. Patient does none of the effort to complete the activity. Or, the assistance of 2 or more helpers is required for the patient to complete the activity. If activity was not attempted, code reason: 7-Patient Refused. 9-Not Applicable-not attempted and the patient did not perform the activity before the current illness, exacerbation or injury. 10-Not Attempted due to Environmental Limitations-(lack of equipment, weather restraints, etc.). 88-Not Attempted due to Medical Conditions or Safety Concerns. Roll Left & Right (QC): 4 Sit to Lying (QC): 4 Sit to Stand (QC): 4 Chair/Ohf-ae-Vyega Xfer(QC): 4 Weight Bearing Full Weight Bearing Full Weight Bearing Gait Training Distance: 150'x2, 100' Walk 10 feet (QC): 4 Walk 50 ft with 2 Turns(QC): 4 Walk 150 ft (QC): 4 Gait Persons Needed: 1 Gait Assistive Device: FWW slow but steady ambulation, patient is pretty fatigued after ambulating 150' and needs a significant rest break Exercises sit to stand from slightly elevated therapy table 2 sets of 5 Treatments LE strengthening, bed mobility and transfers, ambulation Assessment Current Status: Fair Progress slowly improving endurance PT Short Term Goals Short Term Goals Time Frame: Mar 27, 2022 Sit to stand: 4 (CGA) Chair/dwg-wn-cvfin transfer: 4 (SBA) Walk 10 feet: 4 (SBA) Walk 50 feet with two turns: 4 (SBA) Walk 150 feet: 4 (SBA) PT [employer] Supervisor Goals Skilled Nursing Goals PT Skilled Nursing Goals Time Frame: Apr 03, 2022 Roll Left & Right (QC): 6 Sit to Lying (QC): 6 Lying-Sitting on Side/Bed(QC): 6 Sit to Stand (QC): 6 Chair/Bbe-ir-Jqxzs Xfer(QC): 6 Toilet Transfer (QC): 6 Car Transfer (QC): 6 Does the Patient Walk: Yes Walk 10 feet (QC): 6 Walk 50ft with 2 Turns (QC): 6 Walk 150 ft (QC): 6 Walking 10ft on Uneven Surface: 6 1 Step (curb) (QC): 4 4 Steps (QC): 4 12 Steps (QC): 88 Picking up an Object (QC): 6 Wheel 50 feet with 2 turns (QC: 9 Wheel 150 feet: 9 PT Plan Problem List Problem List: Activity Tolerance, Functional Strength, Safety, Balance, Gait, Transfer, Bed Mobility, ROM Treatment/Plan Treatment Plan: Continue Plan of Care Treatment Plan: Bed Mobility, Education, Functional Activity Марина, Functional Strength, Group Therapy, Gait, Safety, Therapeutic Exercise, Transfers Treatment Duration: Apr 03, 2022 Frequency: At least 5 of 7 days/Wk (IRF) Estimated Hrs Per Day: 1.5 hours per day Patient and/or Family Agrees t: Yes Safety Risks/Education Patient Education: Gait Training, Transfer Techniques, Correct Positioning, Safety Issues Teaching Recipient: Patient Teaching Methods: Demonstration, Discussion Response to Teaching: Reinforcement Needed Time Time In: 1345 Time Out: 1415 DATE: Mar 24, 2022 Total Billed Treatment Time: 30 Total Billed Treatment 1 visit FA 30' STU OATES PT Mar 24, 2022 14:14
[2022-03-24 19:42] VITALS: BP 143/82
--- NOTE | 2022-03-25 04:57 | PM&R Progress Note ---
Subjective HPI/CC On Admission Date Seen by Provider: Mar 25, 2022 Time Seen by Provider: 08:30 Subjective/Events-last exam 03/25/2022: Doing well Improved ambulation No pain except back 03/24/2022: Doing well Moving around better OOB more each day No pain reported except chronic back 03/23/2022: Motivation is an issue I told him he needs to stay out of bed More interaction with the patient will be needed 03/22/2022: Patient much improved at bedside had some questions and social worker psychiatric will be meeting with her tomorrow Improved status 03/21/2022: Patient much improved Low potassium so will increase supplement Participation is good Tends to be sedentary and likes to be in bed so we will take note of that and increase activity No pain reported BM+ Review of Systems General: Fatigue, Malaise Objective Exam Vital Signs Vital Signs Date Time Temp Pulse Resp B/P (MAP) Pulse Ox O2 Delivery O2 Flow Rate FiO2 03/25/22 21:00 97 Room Air 03/25/22 19:51 36.1 97 22 176/77 (110) Capillary Refill : General Appearance: No Apparent Distress, WD/WN, Chronically ill, Obese HEENT: PERRL/EOMI, Normal ENT Inspection, Pharynx Normal Neck: Full Range of Motion, Normal Inspection, Non Tender, Supple, Carotid Bruit Respiratory: Chest Non Tender, Lungs Clear, Normal Breath Sounds, No Accessory Muscle Use, No Respiratory Distress Cardiovascular: Regular Rate, Rhythm, No Edema, No Gallop, No JVD, No Murmur, Normal Peripheral Pulses Gastrointestinal: Normal Bowel Sounds, No Organomegaly, No Pulsatile Mass, Non Tender, Soft Back: Normal Inspection, No CVA Tenderness, No Vertebral Tenderness Extremity: Normal Capillary Refill, Normal Inspection, Normal Range of Motion, Non Tender, No Calf Tenderness, No Pedal Edema Neurologic/Psychiatric: Alert, Oriented x3, dental laboratory technician apprentice II-XII Norm as Tested, Abnormal Gait, Depressed Affect, Motor Weakness (generalized) Skin: Normal Color, Warm/Dry Lymphatic: No Adenopathy Results/Procedures Lab Patient resulted labs reviewed. FIM Transfers Therapy Code Descriptions/Definitions Functional [place] Measure: 0=Not Assessed/NA 4=Minimal Assistance 1=Total Assistance 5=Supervision or Setup 2=Maximal Assistance 6=Modified [place] 3=Moderate Assistance 7=Complete IndependenceSCALE: Activities may be completed with or without assistive devices. 4-Ngojfxtpbr-nxyoivb completes the activity by him/herself with no assistance from a helper. 5-Set-up or Clean-up Assistance-helper sets up or cleans up; patient completes activity. [place] assists only prior to or following the activity. 4-Supervision or Touching Assistance-helper provides verbal cues and/or touching/steadying and/or contact guard assistance as patient completes activity. Assistance may be provided throughout the activity or intermittently. 3-Partial/Moderate Assistance-helper does LESS THAN HALF the effort. [place] lifts, holds or supports trunk or limbs, but provides less than half the effort. 2-Substantial/Maximal Assistance-helper does MORE THAN HALF the effort. [place] lifts or holds trunk or limbs and provides more than half the effort. 7-Uthwqiiwu-jxgxij does ALL the effort. Patient does none of the effort to complete the activity. Or, the assistance of 2 or more helpers is required for the patient to complete the activity. If activity was not attempted, code reason: 7-Patient Refused. 9-Not Applicable-not attempted and the patient did not perform the activity before the current illness, exacerbation or injury. 10-Not Attempted due to Environmental Limitations-(lack of equipment, weather restraints, etc.). 88-Not Attempted due to Medical Conditions or Safety Concerns. Roll Left to Right (QC): 4 Sit to Lying (QC): 4 Sit to Stand (QC): 4 Chair/Fpv-lh-Qlkgw Xfer(QC): 4 Car Transfer (QC): 4 Gait Training Does the Patient Walk?: Yes Distance: 150'x2, 100' Walk 10 feet (QC): 4 Walk 50 ft with 2 Turns(QC): 4 Walk 150 ft (QC): 4 Walking 10ft/uneven surface-QC: 4 Gait Persons Needed: 1 Gait Assistive Device: FWW Wheelchair Training Does the Pt Use a Wheelchair?: No Wheel 50 ft with 2 turns (QC): 9 Wheel 150 ft (QC): 9 Stair Training 1 Step (curb) (QC): 88 4 Steps (QC): 88 12 Steps (QC): 88 Balance Picking up an Object (QC): 4 (CGA using a hatchery attendant) ADL-Treatment Eating (QC): 6 (Per pt and spouse report.) Oral Hygiene (QC): 4 (SBA) Shower/Bathe Self (QC): 3 (Min A with washing buttocks. Pt provided with LH sponge and able to wash LEs.) Upper Body Dressing (QC): 5 Lower Body Dressing (QC): 3 (Min A overall) On/Off Footwear (QC): 5 Toileting Hygiene (QC): 3 (Pt able to manage pants, assist with hygiene.) Toilet Transfer (QC): 4 (SBA) Assessment/Plan Assessment and Plan Assess & Plan/Chief Complaint Assessment: Myopathy Alcoholism with recent cessation 6 weeks ago Lumbar spine surgery 05/2021 L3 compression fracture Fall of 2021 [place] Fatty liver Depression BPH DM HTN Hypokalemia Hyponatremia Presumed MAGNUS needs sleep study Recent CO2 narcosis on biPAP Plan: Rehab protocol Monitor closely Lovenox 03/21/2022: Increase activity Lovenox 03/22/2022: Work on motivation Tendency for apathy 03/23/2022: Apathy will be a challenge post DC 03/24/2022: Talked about MAGNUS again Monitor closely 03/25/2022: Monitor closely (1) Myopathy MYRNA LOWRY DO Mar 25, 2022 04:57
[2022-03-25] MEDS: ENOXAPARIN 40 MG/0.4 ML (LOVENOX) SYR SC SCH ×2 (06:12→17:28)
[2022-03-25 07:35] VITALS: BP 141/86
[2022-03-25] MEDS: FUROSEMIDE 40 MG (LASIX) TAB PO SCH (08:13)
[2022-03-25] MEDS: SPIRONOLACTONE 25 MG (ALDACTONE) TAB PO SCH (08:13)
[2022-03-25] MEDS: KCL 20 MEQ TAB (K-DUR) PO SCH ×3 (08:13→17:28)
[2022-03-25] MEDS: DULoxetine 30 MG (CYMBALTA) CAP PO SCH (08:13)
[2022-03-25] MEDS: ACETAMINOPHEN 325 MG TABLET PO PRN (08:17)
--- NOTE | 2022-03-25 09:03 | Occupational Ther Daily Note ---
OT Current Status-Daily Note Subjective Pt up in recliner, agreeable to OT tx. Pt reports pain in BLEs 9/10 when up and walking, correlating pain with increased exercise. Pt denies pain at rest. ADL-Treatment Therapy Code Descriptions/Definitions Functional [place] Measure: 0=Not Assessed/NA 4=Minimal Assistance 1=Total Assistance 5=Supervision or Setup 2=Maximal Assistance 6=Modified [place] 3=Moderate Assistance 7=Complete IndependenceSCALE: Activities may be completed with or without assistive devices. 2-Dedswedusq-iajomhu completes the activity by him/herself with no assistance from a helper. 5-Set-up or Clean-up Assistance-helper sets up or cleans up; patient completes activity. [place] assists only prior to or following the activity. 4-Supervision or Touching Assistance-helper provides verbal cues and/or touching/steadying and/or contact guard assistance as patient completes activity. Assistance may be provided throughout the activity or intermittently. 3-Partial/Moderate Assistance-helper does LESS THAN HALF the effort. [place] lifts, holds or supports trunk or limbs, but provides less than half the effort. 2-Substantial/Maximal Assistance-helper does MORE THAN HALF the effort. [place] lifts or holds trunk or limbs and provides more than half the effort. 9-Tgrkhgsea-caiuhj does ALL the effort. Patient does none of the effort to complete the activity. Or, the assistance of 2 or more helpers is required for the patient to complete the activity. If activity was not attempted, code reason: 7-Patient Refused. 9-Not Applicable-not attempted and the patient did not perform the activity before the current illness, exacerbation or injury. 10-Not Attempted due to Environmental Limitations-(lack of equipment, weather restraints, etc.). 88-Not Attempted due to Medical Conditions or Safety Concerns. Other Treatment Pt in recliner, agreeable to OT Tx. Pt declined toileting and ADLs on this date. Pt used FWW to perform functional mobility to therapy gym, [facility]. OT tx focused on increasing BUE strength and activity tolerance. Pt completed UE reaching and fine motor activity, placing/removing nuts and bolts from block. Pt able to complete x16 with rest breaks as needed. Pt had increased difficulty with the higher nuts/bolts due to decreased shoulder ROM. Pt then completed UE reaching task, placing/removing pegs from 1" pegboard, alternating hands, x100. Pt used FWW to return to his room, SBA, transferring to recliner. Post tx, pt in recliner, call light in reach and all needs met. Education OT Patient Education: Correct positioning, Energy conservation, Exercise program, Modified ADL techniques, Progress toward Goal/Update tx plan, Purpose of tx/functional activities, Rehab process Teaching Recipient: Patient Teaching Methods: Discussion Response to Teaching: Verbalize Understanding OT Short Term Goals Short Term Goals Time Frame: Apr 01, 2022 Toileting hygiene: 4 Shower/bathe self: 4 Lower body dressin Putting on/taking off footwear: 4 OT [facility] Goals [employer] Manufacturing Supervisor Goals Time Frame: Apr 10, 2022 Acute change in mental status: 0 Inattention: 0 Disorganized thinkin Altered level of consciousness: 0 Eating (QC): 6 Oral Hygiene (QC): 6 Toileting Hygiene (QC): 6 Shower/Bathe Self (QC): 6 Upper Body Dressing (QC): 6 Lower Body Dressing (QC): 6 On/Off Footwear (QC): 6 Additional Goals: 1-Demonstrate ADL Tasks, 2-Verbalize Understanding, 3- ImproveStrength/Марина 1=Demonstrate adherence to instructed precautions during ADL tasks. 2=Patient will verbalize/demonstrate understanding of assistive devices/modifications for ADL. 3=Patient will improve strength/tolerance for activity to enable patient to perform ADL's. OT Education/Plan Problem List/Assessment Assessment: Decreased Activ Tolerance, Decreased UE Strength, Impaired Funct Balance, Impaired I ADL's, Impaired Self-Care Skills Discharge Recommendations Plan/Recommendations: Continue POC Treatment Plan/Plan of Care Patient would benefit from OT for education, treatment and training to promote independence in ADL's, mobility, safety and/or upper extremity function for ADL's. Plan of Care: ADL Retraining, Functional Mobility, Group Exercise/Act as Ind, UE Funct Exercise/Act Treatment Duration: Apr 10, 2022 Frequency: At least 5 of 7 days/Wk (IRF) Estimated Hrs Per Day: 1.5 hours per day Agreement: Yes Rehab Potential: Good Time Start Time: 08:45 Stop Time: 09:45 DATE: Mar 25, 2022 Total Time Billed (hr/min): 60 Billed Treatment Time 1, FA 4 IDALIA SCRUGGS OT Mar 25, 2022 09:03
[2022-03-25] MEDS: polyethylene glycoL POWDER 17 GM (MIRALAX) PACK PO SCH ×2 (09:34→20:45)
[2022-03-25] MEDS: DOCUSATE SODIUM 100 MG (COLACE) CAP PO SCH ×2 (09:34→20:46)
[2022-03-25] MEDS: SENNA W/DOCUSATE (SENOKOT S) TABLET PO SCH ×2 (09:34→20:45)
--- NOTE | 2022-03-25 10:57 | Physical Therapy Daily Note ---
PT Daily Note-Current Subjective Pt. c/o he has muscle soreness from yesterdays Rx he thinks, Agrees to Rx. c/o pain during rx at 8/10 in LEs, 2/10 at rest Pain Numeric Pain Scale: 8 Location: Right (and left) Location Body Site: Thigh (quads and hams) Pain Description: Burning Section J - Health Conditions 1. Rarely or not at all 2. Occasionally 3. Frequently 4. Almost constantly 8. Unable to answer Pain Effect on Sleep: 3 Pain Interference with Therapy: 3 Pain Interference w/Day-to-Day: 3 Mental Status Patient Orientation: Normal For Age Transfers SCALE: Activities may be completed with or without assistive devices. 3-Oihgsumyqc-opvmcxg completes the activity by him/herself with no assistance from a helper. 5-Set-up or Clean-up Assistance-helper sets up or cleans up; patient completes activity. [place] assists only prior to or following the activity. 4-Supervision or Touching Assistance-helper provides verbal cues and/or touching/steadying and/or contact guard assistance as patient completes activity. Assistance may be provided throughout the activity or intermittently. 3-Partial/Moderate Assistance-helper does LESS THAN HALF the effort. [place] lifts, holds or supports trunk or limbs, but provides less than half the effort. 2-Substantial/Maximal Assistance-helper does MORE THAN HALF the effort. [place] lifts or holds trunk or limbs and provides more than half the effort. 1-Pbdpxfjyj-yfkuxr does ALL the effort. Patient does none of the effort to complete the activity. Or, the assistance of 2 or more helpers is required for the patient to complete the activity. If activity was not attempted, code reason: 7-Patient Refused. 9-Not Applicable-not attempted and the patient did not perform the activity before the current illness, exacerbation or injury. 10-Not Attempted due to Environmental Limitations-(lack of equipment, weather restraints, etc.). 88-Not Attempted due to Medical Conditions or Safety Concerns. Roll Left & Right (QC): 6 Sit to Lying (QC): 6 Lying to Sitting/Side of Bed(Q: 6 Sit to Stand (QC): 6 Chair/Sky-qw-Kvahl Xfer(QC): 6 Toilet Transfer (QC): 6 Weight Bearing Full Weight Bearing Full Weight Bearing Gait Training Does the Patient Walk?: Yes Walk 10 feet (QC): 6 Walk 50 ft with 2 Turns(QC): 6 Walk 150 ft (QC): 6 Gait Persons Needed: 1 Gait Assistive Device: FWW pt. is slow, heavy wt bearing on FWW, c/o increasing pain in thighs that stops when at rest Exercises Supine Ex: Bridging, Ankle pumps, Quad Set, Rolling, Glut sets, Lower trunk rotation, Heel Slides, Short Arc Quads, Scooting, Straight leg raise, Hip abd/add Supine Reps: 15 Seated Therapy Exercises: Ankle pumps, Sit to stand, Long arc quads, Hip flexion, Hip abd/add Seated Reps: 15 Treatments TRFs focusing on in out bed, threx in sup and sit, toileting, gait Assessment Current Status: Good Progress mm soreness he equates with normal DOMS PT Short Term Goals Short Term Goals Time Frame: Mar 27, 2022 Sit to stand: 4 (CGA) Chair/uqw-wd-vvdhl transfer: 4 (SBA) Walk 10 feet: 4 (SBA) Walk 50 feet with two turns: 4 (SBA) Walk 150 feet: 4 (SBA) PT Chief Sales Officer Goals Fpc Goals PT Fpc Goals Time Frame: Apr 03, 2022 Roll Left & Right (QC): 6 Sit to Lying (QC): 6 Lying-Sitting on Side/Bed(QC): 6 Sit to Stand (QC): 6 Chair/Udz-ol-Xetwi Xfer(QC): 6 Toilet Transfer (QC): 6 Car Transfer (QC): 6 Does the Patient Walk: Yes Walk 10 feet (QC): 6 Walk 50ft with 2 Turns (QC): 6 Walk 150 ft (QC): 6 Walking 10ft on Uneven Surface: 6 1 Step (curb) (QC): 4 4 Steps (QC): 4 12 Steps (QC): 88 Picking up an Object (QC): 6 Wheel 50 feet with 2 turns (QC: 9 Wheel 150 feet: 9 PT Plan Treatment/Plan Treatment Plan: Continue Plan of Care Treatment Plan: Bed Mobility, Education, Functional Activity Марина, Functional Strength, Group Therapy, Gait, Safety, Therapeutic Exercise, Transfers Treatment Duration: Apr 03, 2022 Frequency: At least 5 of 7 days/Wk (IRF) Estimated Hrs Per Day: 1.5 hours per day Patient and/or Family Agrees t: Yes Safety Risks/Education Patient Education: Gait Training, Transfer Techniques, Correct Positioning, Disease Process, Safety Issues Teaching Recipient: Patient Teaching Methods: Demonstration, Discussion Response to Teaching: Verbalize Understanding, Return Demonstration, Reinforcement Needed Time Time In: 1000 Time Out: 1100 DATE: Mar 25, 2022 Total Billed Treatment Time: 60 Total Billed Treatment EX25m,FA20m,GT15m EZIO MICHELLE FABRICATION LEAD Mar 25, 2022 10:56
[2022-03-25] MEDS: MICONAZOLE 2% POWDER (DESENEX AF) 90 GM TOP SCH ×2 (11:27→20:45)
--- NOTE | 2022-03-25 12:02 | Physical Therapy Daily Note ---
PT Daily Note-Current Subjective Pt.c/o pain in LEs at 9/10 during wt bearing activities. When resting in chair only 2/10 Pain Numeric Pain Scale: 9 Location: Left (and right) Location Body Site: Thigh Pain Description: Burning Section J - Health Conditions 1. Rarely or not at all 2. Occasionally 3. Frequently 4. Almost constantly 8. Unable to answer Pain Effect on Sleep: 3 Pain Interference with Therapy: 4 Pain Interference w/Day-to-Day: 3 Mental Status Patient Orientation: Normal For Age Transfers SCALE: Activities may be completed with or without assistive devices. 6-Acgogqenza-gzsvsgm completes the activity by him/herself with no assistance from a helper. 5-Set-up or Clean-up Assistance-helper sets up or cleans up; patient completes activity. [place] assists only prior to or following the activity. 4-Supervision or Touching Assistance-helper provides verbal cues and/or touching/steadying and/or contact guard assistance as patient completes activity. Assistance may be provided throughout the activity or intermittently. 3-Partial/Moderate Assistance-helper does LESS THAN HALF the effort. [place] lifts, holds or supports trunk or limbs, but provides less than half the effort. 2-Substantial/Maximal Assistance-helper does MORE THAN HALF the effort. [place] lifts or holds trunk or limbs and provides more than half the effort. 0-Nxusmqqsb-rccvug does ALL the effort. Patient does none of the effort to complete the activity. Or, the assistance of 2 or more helpers is required for the patient to complete the activity. If activity was not attempted, code reason: 7-Patient Refused. 9-Not Applicable-not attempted and the patient did not perform the activity before the current illness, exacerbation or injury. 10-Not Attempted due to Environmental Limitations-(lack of equipment, weather restraints, etc.). 88-Not Attempted due to Medical Conditions or Safety Concerns. all sit to stand SBA to Mod I Weight Bearing Full Weight Bearing Full Weight Bearing Gait Training Does the Patient Walk?: Yes Walk 150 ft (QC): 6 Gait Persons Needed: 1 Gait Assistive Device: FWW 165 ft x 2 FWW SBA to Mod I, no LOB etc Exercises NuStep Minutes: 10 NuStep Workload: 1 Treatments TRFs, gait, therex Assessment Current Status: Good Progress pain conts with wt bearing PT Short Term Goals Short Term Goals Time Frame: Mar 27, 2022 Sit to stand: 4 (CGA) Chair/cfh-cf-ovnmg transfer: 4 (SBA) Walk 10 feet: 4 (SBA) Walk 50 feet with two turns: 4 (SBA) Walk 150 feet: 4 (SBA) PT Brewery Worker Goals Long-Term Goals PT Brewery Worker Goals Time Frame: Apr 03, 2022 Roll Left & Right (QC): 6 Sit to Lying (QC): 6 Lying-Sitting on Side/Bed(QC): 6 Sit to Stand (QC): 6 Chair/Ocr-gi-Zohzo Xfer(QC): 6 Toilet Transfer (QC): 6 Car Transfer (QC): 6 Does the Patient Walk: Yes Walk 10 feet (QC): 6 Walk 50ft with 2 Turns (QC): 6 Walk 150 ft (QC): 6 Walking 10ft on Uneven Surface: 6 1 Step (curb) (QC): 4 4 Steps (QC): 4 12 Steps (QC): 88 Picking up an Object (QC): 6 Wheel 50 feet with 2 turns (QC: 9 Wheel 150 feet: 9 PT Plan Treatment/Plan Treatment Plan: Continue Plan of Care Treatment Plan: Bed Mobility, Education, Functional Activity Марина, Functional Strength, Group Therapy, Gait, Safety, Therapeutic Exercise, Transfers Treatment Duration: Apr 03, 2022 Frequency: At least 5 of 7 days/Wk (IRF) Estimated Hrs Per Day: 1.5 hours per day Patient and/or Family Agrees t: Yes Safety Risks/Education Patient Education: Gait Training, Transfer Techniques, Correct Positioning, Disease Process, Safety Issues Teaching Recipient: Patient Teaching Methods: Demonstration, Discussion Response to Teaching: Verbalize Understanding, Return Demonstration, Reinforcement Needed Time Time In: 1132 Time Out: 1202 DATE: Mar 25, 2022 Total Billed Treatment Time: 30 Total Billed Treatment 1,GT20m,EX10m EZIO MICHELLE SR. CONSULTANT Mar 25, 2022 12:02
--- NOTE | 2022-03-25 13:09 | Occupational Ther Daily Note ---
OT Current Status-Daily Note Subjective Pt up in recliner, agreeable to OT Tx. ADL-Treatment Therapy Code Descriptions/Definitions Functional [place] Measure: 0=Not Assessed/NA 4=Minimal Assistance 1=Total Assistance 5=Supervision or Setup 2=Maximal Assistance 6=Modified [place] 3=Moderate Assistance 7=Complete IndependenceSCALE: Activities may be completed with or without assistive devices. 2-Anqlphxmgl-wfszuzf completes the activity by him/herself with no assistance from a helper. 5-Set-up or Clean-up Assistance-helper sets up or cleans up; patient completes activity. [place] assists only prior to or following the activity. 4-Supervision or Touching Assistance-helper provides verbal cues and/or touching/steadying and/or contact guard assistance as patient completes activity. Assistance may be provided throughout the activity or intermittently. 3-Partial/Moderate Assistance-helper does LESS THAN HALF the effort. [place] lifts, holds or supports trunk or limbs, but provides less than half the effort. 2-Substantial/Maximal Assistance-helper does MORE THAN HALF the effort. [place] lifts or holds trunk or limbs and provides more than half the effort. 5-Jrtzydizx-eohptd does ALL the effort. Patient does none of the effort to co mplete the activity. Or, the assistance of 2 or more helpers is required for the patient to complete the activity. If activity was not attempted, code reason: 7-Patient Refused. 9-Not Applicable-not attempted and the patient did not perform the activity before the current illness, exacerbation or injury. 10-Not Attempted due to Environmental Limitations-(lack of equipment, weather restraints, etc.). 88-Not Attempted due to Medical Conditions or Safety Concerns. Other Treatment Pt up in recliner, agreeable to OT Tx. Pt used FWW to perform functional mobility to therapy gym, SBA. In order to increase BUE Strength and activity tolerance, pt completed arm bike, x15 mins, 15 Watt resistance, 2 rest break. Pt used FWW to return to his room, SBA, transferring to recliner. Post tx, pt in recliner, call light in reach and all needs met. OT Short Term Goals Short Term Goals Time Frame: Apr 01, 2022 Toileting hygiene: 4 Shower/bathe self: 4 Lower body dressin Putting on/taking off footwear: 4 OT Skilled Nursing Goals Skilled Nursing Goals Time Frame: Apr 10, 2022 Acute change in mental status: 0 Inattention: 0 Disorganized thinkin Altered level of consciousness: 0 Eating (QC): 6 Oral Hygiene (QC): 6 Toileting Hygiene (QC): 6 Shower/Bathe Self (QC): 6 Upper Body Dressing (QC): 6 Lower Body Dressing (QC): 6 On/Off Footwear (QC): 6 Additional Goals: 1-Demonstrate ADL Tasks, 2-Verbalize Understanding, 3- ImproveStrength/Марина 1=Demonstrate adherence to instructed precautions during ADL tasks. 2=Patient will verbalize/demonstrate understanding of assistive devices/modific ations for ADL. 3=Patient will improve strength/tolerance for activity to enable patient to perform ADL's. OT Education/Plan Problem List/Assessment Assessment: Decreased Activ Tolerance, Decreased UE Strength, Impaired Funct Balance, Impaired I ADL's, Impaired Self-Care Skills Discharge Recommendations Plan/Recommendations: Continue POC Treatment Plan/Plan of Care Patient would benefit from OT for education, treatment and training to promote independence in ADL's, mobility, safety and/or upper extremity function for ADL's. Plan of Care: ADL Retraining, Functional Mobility, Group Exercise/Act as Ind, UE Funct Exercise/Act Treatment Duration: Apr 10, 2022 Frequency: At least 5 of 7 days/Wk (IRF) Estimated Hrs Per Day: 1.5 hours per day Agreement: Yes Rehab Potential: Good Time Start Time: 12:58 Stop Time: 13:28 DATE: Mar 25, 2022 Total Time Billed (hr/min): 30 Billed Treatment Time 1, EX 2 IDALIA SCRUGGS OT Mar 25, 2022 13:09
[2022-03-25 19:51] VITALS: BP 176/77
[2022-03-26] MEDS: ENOXAPARIN 40 MG/0.4 ML (LOVENOX) SYR SC SCH ×2 (06:42→17:30)
[2022-03-26 07:15] VITALS: BP 149/94
[2022-03-26] MEDS: ACETAMINOPHEN 325 MG TABLET PO PRN (07:57)
[2022-03-26] MEDS: SPIRONOLACTONE 25 MG (ALDACTONE) TAB PO SCH (07:57)
[2022-03-26] MEDS: FUROSEMIDE 40 MG (LASIX) TAB PO SCH (07:57)
[2022-03-26] MEDS: DULoxetine 30 MG (CYMBALTA) CAP PO SCH (07:57)
[2022-03-26] MEDS: KCL 20 MEQ TAB (K-DUR) PO SCH ×3 (07:57→17:30)
[2022-03-26] MEDS: polyethylene glycoL POWDER 17 GM (MIRALAX) PACK PO SCH ×2 (07:59→19:51)
[2022-03-26] MEDS: SENNA W/DOCUSATE (SENOKOT S) TABLET PO SCH ×2 (07:59→19:51)
[2022-03-26] MEDS: DOCUSATE SODIUM 100 MG (COLACE) CAP PO SCH ×2 (07:59→19:51)
[2022-03-26] MEDS: MICONAZOLE 2% POWDER (DESENEX AF) 90 GM TOP SCH ×2 (08:00→21:01)
--- NOTE | 2022-03-26 09:14 | Occupational Ther Daily Note ---
OT Current Status-Daily Note Subjective Pt up in recliner, agreeable to OT Tx. ADL-Treatment Therapy Code Descriptions/Definitions Functional [place] Measure: 0=Not Assessed/NA 4=Minimal Assistance 1=Total Assistance 5=Supervision or Setup 2=Maximal Assistance 6=Modified [place] 3=Moderate Assistance 7=Complete IndependenceSCALE: Activities may be completed with or without assistive devices. 7-Syopsboidv-zlfhscq completes the activity by him/herself with no assistance from a helper. 5-Set-up or Clean-up Assistance-helper sets up or cleans up; patient completes activity. [place] assists only prior to or following the activity. 4-Supervision or Touching Assistance-helper provides verbal cues and/or touching/steadying and/or contact guard assistance as patient completes activity. Assistance may be provided throughout the activity or intermittently. 3-Partial/Moderate Assistance-helper does LESS THAN HALF the effort. [place] lifts, holds or supports trunk or limbs, but provides less than half the effort. 2-Substantial/Maximal Assistance-helper does MORE THAN HALF the effort. [place] lifts or holds trunk or limbs and provides more than half the effort. 3-Msdayfljm-utvabq does ALL the effort. Patient does none of the effort to co mplete the activity. Or, the assistance of 2 or more helpers is required for the patient to complete the activity. If activity was not attempted, code reason: 7-Patient Refused. 9-Not Applicable-not attempted and the patient did not perform the activity before the current illness, exacerbation or injury. 10-Not Attempted due to Environmental Limitations-(lack of equipment, weather restraints, etc.). 88-Not Attempted due to Medical Conditions or Safety Concerns. Other Treatment Pt up in recliner, agreeable to OT tx. Pt requests to defer shower until tomorrow's tx, as he is scheduled to leave this weekend. Pt used FWW to transfer into therapy gym independently. OT tx focused on increasing BUE Strength and activity tolerance. Pt completed UE reaching task, completing x5 pipe tree assembly following printed pattern. Rest breaks taken as needed between patterns . Pt then completed UE reaching task, placing/removing nuts/bolts from block, completing x16 with rest breaks as needed. Pt used FWW to return to room independently, transferring to recliner. Post tx, pt in recliner, call light in reach and all needs met. Education OT Patient Education: Correct positioning, Energy conservation, Modified ADL techniques, Progress toward Goal/Update tx plan, Purpose of tx/functional activities, Rehab process Teaching Recipient: Patient Teaching Methods: Discussion Response to Teaching: Verbalize Understanding OT Short Term Goals Short Term Goals Time Frame: Apr 01, 2022 Toileting hygiene: 4 Shower/bathe self: 4 Lower body dressin Putting on/taking off footwear: 4 OT Correction Goals Quirk Sander Goals Time Frame: Apr 10, 2022 Acute change in mental status: 0 Inattention: 0 Disorganized thinkin Altered level of consciousness: 0 Eating (QC): 6 Oral Hygiene (QC): 6 Toileting Hygiene (QC): 6 Shower/Bathe Self (QC): 6 Upper Body Dressing (QC): 6 Lower Body Dressing (QC): 6 On/Off Footwear (QC): 6 Additional Goals: 1-Demonstrate ADL Tasks, 2-Verbalize Understanding, 3-Improve Strength/Маирна 1=Demonstrate adherence to instructed precautions during ADL tasks. 2=Patient will verbalize/demonstrate understanding of assistive devices/modifications for ADL. 3=Patient will improve strength/tolerance for activity to enable patient to pe rform ADL's. OT Education/Plan Problem List/Assessment Assessment: Decreased Activ Tolerance, Decreased UE Strength, Impaired I ADL's, Impaired Self-Care Skills Discharge Recommendations Plan/Recommendations: Continue POC Treatment Plan/Plan of Care Patient would benefit from OT for education, treatment and training to promote independence in ADL's, mobility, safety and/or upper extremity function for ADL's. Plan of Care: ADL Retraining, Functional Mobility, Group Exercise/Act as Ind, UE Funct Exercise/Act Treatment Duration: Apr 10, 2022 Frequency: At least 5 of 7 days/Wk (IRF) Estimated Hrs Per Day: 1.5 hours per day Agreement: Yes Rehab Potential: Good Time Start Time: 08:50 Stop Time: 09:50 DATE: Mar 26, 2022 Total Time Billed (hr/min): 60 Billed Treatment Time 1, FA 4 IDALIA SCRUGGS OT Mar 26, 2022 09:14
--- NOTE | 2022-03-26 10:48 | Physical Therapy Daily Note ---
PT Daily Note-Current Subjective " I think were doing all the right things here to get me stronger" Pt. states he is still having what he believes to be DOMS and agrees to try some stretches for LEs. Pt. states he is not in pain at all while at rest but upon stance he has 9/10 pain that improves somewhat with movement Pain Numeric Pain Scale: 9 (only during 1st few min of wt bearing then improves as he moves) Location: Medial Location Body Site: Back (hips and knees) Pain Description: Ache Section J - Health Conditions 1. Rarely or not at all 2. Occasionally 3. Frequently 4. Almost constantly 8. Unable to answer Pain Effect on Sleep: 2 Pain Interference with Therapy: 3 Pain Interference w/Day-to-Day: 1 Mental Status Patient Orientation: Normal For Age Transfers SCALE: Activities may be completed with or without assistive devices. 1-Aqemosiowh-yxluzxu completes the activity by him/herself with no assistance from a helper. 5-Set-up or Clean-up Assistance-helper sets up or cleans up; patient completes activity. [place] assists only prior to or following the activity. 4-Supervision or Touching Assistance-helper provides verbal cues and/or touching/steadying and/or contact guard assistance as patient completes activity. Assistance may be provided throughout the activity or intermittently. 3-Partial/Moderate Assistance-helper does LESS THAN HALF the effort. [place] lifts, holds or supports trunk or limbs, but provides less than half the effort. 2-Substantial/Maximal Assistance-helper does MORE THAN HALF the effort. [place] lifts or holds trunk or limbs and provides more than half the effort. 6-Prdcunweo-sozcuh does ALL the effort. Patient does none of the effort to complete the activity. Or, the assistance of 2 or more helpers is required for the patient to complete the activity. If activity was not attempted, code reason: 7-Patient Refused. 9-Not Applicable-not attempted and the patient did not perform the activity before the current illness, exacerbation or injury. 10-Not Attempted due to Environmental Limitations-(lack of equipment, weather restraints, etc.). 88-Not Attempted due to Medical Conditions or Safety Concerns. Roll Left & Right (QC): 6 Sit to Lying (QC): 6 Lying to Sitting/Side of Bed(Q: 6 Sit to Stand (QC): 6 Chair/Epp-ow-Kbewd Xfer(QC): 6 Weight Bearing Full Weight Bearing Full Weight Bearing Gait Training Does the Patient Walk?: Yes Walk 10 feet (QC): 6 Walk 50 ft with 2 Turns(QC): 6 Walk 150 ft (QC): 6 Gait Persons Needed: 1 Gait Assistive Device: FWW pt. has no LOB, gait is laborious and pt. takes occas standing rest, heavy wt bearing in FWW, flexed at trunk Exercises Supine Ex: Ankle pumps, Quad Set, Rolling, Glut sets, Heel Slides, Scooting, Straight leg raise, Hip abd/add (side lying) Supine Reps: 15 Seated Therapy Exercises: Ankle pumps, Sit to stand, Long arc quads, Hip flexion Seated Reps: 15 clam shells and side hip add as well x 10, pt was educated in use of gait belt to stretch calved and hamstrings , performed x 20 sec each Treatments TRFs in out bed , gait, therex in sit and side and stand Assessment Current Status: Good Progress PT Short Term Goals Short Term Goals Time Frame: Mar 27, 2022 Sit to stand: 4 (CGA) Chair/jok-qj-lhmqy transfer: 4 (SBA) Walk 10 feet: 4 (SBA) Walk 50 feet with two turns: 4 (SBA) Walk 150 feet: 4 (SBA) PT Film Developing Machine Operator Goals Assisted Goals PT Assisted Goals Time Frame: Apr 03, 2022 Roll Left & Right (QC): 6 Sit to Lying (QC): 6 Lying-Sitting on Side/Bed(QC): 6 Sit to Stand (QC): 6 Chair/Xic-ux-Pbdzh Xfer(QC): 6 Toilet Transfer (QC): 6 Car Transfer (QC): 6 Does the Patient Walk: Yes Walk 10 feet (QC): 6 Walk 50ft with 2 Turns (QC): 6 Walk 150 ft (QC): 6 Walking 10ft on Uneven Surface: 6 1 Step (curb) (QC): 4 4 Steps (QC): 4 12 Steps (QC): 88 Picking up an Object (QC): 6 Wheel 50 feet with 2 turns (QC: 9 Wheel 150 feet: 9 PT Plan Treatment/Plan Treatment Plan: Continue Plan of Care Treatment Plan: Bed Mobility, Education, Functional Activity Марина, Functional Strength, Group Therapy, Gait, Safety, Therapeutic Exercise, Transfers Treatment Duration: Apr 03, 2022 Frequency: At least 5 of 7 days/Wk (IRF) Estimated Hrs Per Day: 1.5 hours per day Patient and/or Family Agrees t: Yes Safety Risks/Education Patient Education: Gait Training, Transfer Techniques, Correct Positioning, Disease Process, Safety Issues Teaching Recipient: Patient Teaching Methods: Demonstration, Discussion Response to Teaching: Verbalize Understanding, Return Demonstration, Reinforcement Needed Time Time In: 1000 Time Out: 1100 DATE: Mar 26, 2022 Total Billed Treatment Time: 60 Total Billed Treatment 1,EX18m,FA28m,GT14m EZIO MICHELLE BOAT REPAIRER Mar 26, 2022 10:48
--- NOTE | 2022-03-26 11:37 | Occupational Ther Daily Note ---
OT Current Status-Daily Note Subjective Pt up in recliner, agreeable to OT Tx. ADL-Treatment Therapy Code Descriptions/Definitions Functional [place] Measure: 0=Not Assessed/NA 4=Minimal Assistance 1=Total Assistance 5=Supervision or Setup 2=Maximal Assistance 6=Modified [place] 3=Moderate Assistance 7=Complete IndependenceSCALE: Activities may be completed with or without assistive devices. 3-Ejyjltzjkg-tubczao completes the activity by him/herself with no assistance from a helper. 5-Set-up or Clean-up Assistance-helper sets up or cleans up; patient completes activity. [place] assists only prior to or following the activity. 4-Supervision or Touching Assistance-helper provides verbal cues and/or touching/steadying and/or contact guard assistance as patient completes activity. Assistance may be provided throughout the activity or intermittently. 3-Partial/Moderate Assistance-helper does LESS THAN HALF the effort. [place] lifts, holds or supports trunk or limbs, but provides less than half the effort. 2-Substantial/Maximal Assistance-helper does MORE THAN HALF the effort. [place] lifts or holds trunk or limbs and provides more than half the effort. 1-Hwdoolvqg-ksrwzt does ALL the effort. Patient does none of the effort to co mplete the activity. Or, the assistance of 2 or more helpers is required for the patient to complete the activity. If activity was not attempted, code reason: 7-Patient Refused. 9-Not Applicable-not attempted and the patient did not perform the activity before the current illness, exacerbation or injury. 10-Not Attempted due to Environmental Limitations-(lack of equipment, weather restraints, etc.). 88-Not Attempted due to Medical Conditions or Safety Concerns. Other Treatment Pt in recliner, agreeable to OT Tx. Pt used FWW to perform functional mobility to therapy gym, IND. OT tx focused on increasing BUE strength and activity tolerance. Pt completed UE reaching task, placing/removing 1" pegs into foam pegboard, alternating hands, completing x60 total. Pt took rest break, then used FWW to return to his room, IND. Post tx, pt in recliner, call light in reach and all needs met. OT Short Term Goals Short Term Goals Time Frame: Apr 01, 2022 Toileting hygiene: 4 Shower/bathe self: 4 Lower body dressin Putting on/taking off footwear: 4 OT Long-Term Goals Long-Term Goals Time Frame: Apr 10, 2022 Acute change in mental status: 0 Inattention: 0 Disorganized thinkin Altered level of consciousness: 0 Eating (QC): 6 Oral Hygiene (QC): 6 Toileting Hygiene (QC): 6 Shower/Bathe Self (QC): 6 Upper Body Dressing (QC): 6 Lower Body Dressing (QC): 6 On/Off Footwear (QC): 6 Additional Goals: 1-Demonstrate ADL Tasks, 2-Verbalize Understanding, 3- ImproveStrength/Марина 1=Demonstrate adherence to instructed precautions during ADL tasks. 2=Patient will verbalize/demonstrate understanding of assistive devices/modifications for ADL. 3=Patient will improve strength/tolerance for activity to enable patient to perform ADL's. OT Education/Plan Problem List/Assessment Assessment: Decreased Activ Tolerance, Decreased UE Strength, Impaired I ADL's, Impaired Self-Care Skills Discharge Recommendations Plan/Recommendations: Continue POC Treatment Plan/Plan of Care Patient would benefit from OT for education, treatment and training to promote independence in ADL's, mobility, safety and/or upper extremity function for ADL's. Plan of Care: ADL Retraining, Functional Mobility, Group Exercise/Act as Ind, UE Funct Exercise/Act Treatment Duration: Apr 10, 2022 Frequency: At least 5 of 7 days/Wk (IRF) Estimated Hrs Per Day: 1.5 hours per day Agreement: Yes Rehab Potential: Good Time Start Time: 11:20 Stop Time: 11:50 DATE: Mar 26, 2022 Total Time Billed (hr/min): 30 Billed Treatment Time 1, FA 2 IDALIA SCRUGGS OT Mar 26, 2022 11:36
--- NOTE | 2022-03-26 12:05 | PM&R Progress Note ---
Subjective HPI/CC On Admission Date Seen by Provider: Mar 26, 2022 Time Seen by Provider: 11:45 Subjective/Events-last exam 03/26/2022: Improve overall Participating well No pain reported 03/25/2022: Doing well Improved ambulation No pain except back 03/24/2022: Doing well Moving around better OOB more each day No pain reported except chronic back 03/23/2022: Motivation is an issue I told him he needs to stay out of bed More interaction with the patient will be needed 03/22/2022: Patient much improved at bedside had some questions and social welfare research worker will be meeting with her tomorrow Improved status 03/21/2022: Patient much improved Low potassium so will increase supplement Participation is good Tends to be sedentary and likes to be in bed so we will take note of that and increase activity No pain reported BM+ Review of Systems General: Fatigue, Malaise Objective Exam Vital Signs Vital Signs Date Time Temp Pulse Resp B/P (MAP) Pulse Ox O2 Delivery O2 Flow Rate FiO2 03/26/22 20:30 Room Air 03/26/22 20:23 36.3 99 16 146/91 (109) 97 Capillary Refill : General Appearance: No Apparent Distress, WD/WN, Chronically ill, Obese HEENT: PERRL/EOMI, Normal ENT Inspection, Pharynx Normal Neck: Full Range of Motion, Normal Inspection, Non Tender, Supple, Carotid Bruit Respiratory: Chest Non Tender, Lungs Clear, Normal Breath Sounds, No Accessory Muscle Use, No Respiratory Distress Cardiovascular: Regular Rate, Rhythm, No Edema, No Gallop, No JVD, No Murmur, Normal Peripheral Pulses Gastrointestinal: Normal Bowel Sounds, No Organomegaly, No Pulsatile Mass, Non Tender, Soft Back: Normal Inspection, No CVA Tenderness, No Vertebral Tenderness Extremity: Normal Capillary Refill, Normal Inspection, Normal Range of Motion, Non Tender, No Calf Tenderness, No Pedal Edema Neurologic/Psychiatric: Alert, Oriented x3, loading manager II-XII Norm as Tested, Abnormal Gait, Depressed Affect, Motor Weakness (generalized) Skin: Normal Color, Warm/Dry Lymphatic: No Adenopathy Results/Procedures Lab Patient resulted labs reviewed. FIM Transfers Therapy Code Descriptions/Definitions Functional [place] Measure: 0=Not Assessed/NA 4=Minimal Assistance 1=Total Assistance 5=Supervision or Setup 2=Maximal Assistance 6=Modified [place] 3=Moderate Assistance 7=Complete IndependenceSCALE: Activities may be completed with or without assistive devices. 0-Jykpatsott-toslspd completes the activity by him/herself with no assistance from a helper. 5-Set-up or Clean-up Assistance-helper sets up or cleans up; patient completes activity. [place] assists only prior to or following the activity. 4-Supervision or Touching Assistance-helper provides verbal cues and/or touching/steadying and/or contact guard assistance as patient completes activity. Assistance may be provided throughout the activity or intermittently. 3-Partial/Moderate Assistance-helper does LESS THAN HALF the effort. [place] lifts, holds or supports trunk or limbs, but provides less than half the effort. 2-Substantial/Maximal Assistance-helper does MORE THAN HALF the effort. [place] lifts or holds trunk or limbs and provides more than half the effort. 7-Bkhxwovqe-cajrsj does ALL the effort. Patient does none of the effort to complete the activity. Or, the assistance of 2 or more helpers is required for the patient to complete the activity. If activity was not attempted, code reason: 7-Patient Refused. 9-Not Applicable-not attempted and the patient did not perform the activity before the current illness, exacerbation or injury. 10-Not Attempted due to Environmental Limitations-(lack of equipment, weather restraints, etc.). 88-Not Attempted due to Medical Conditions or Safety Concerns. Roll Left to Right (QC): 6 Sit to Lying (QC): 6 Sit to Stand (QC): 6 Chair/Tgb-kz-Jkbuy Xfer(QC): 6 Car Transfer (QC): 4 Gait Training Does the Patient Walk?: Yes Distance: 150'x2, 100' Walk 10 feet (QC): 6 Walk 50 ft with 2 Turns(QC): 6 Walk 150 ft (QC): 6 Walking 10ft/uneven surface-QC: 4 Gait Persons Needed: 1 Gait Assistive Device: FWW Wheelchair Training Does the Pt Use a Wheelchair?: No Wheel 50 ft with 2 turns (QC): 9 Wheel 150 ft (QC): 9 Stair Training 1 Step (curb) (QC): 88 4 Steps (QC): 88 12 Steps (QC): 88 Balance Picking up an Object (QC): 4 (CGA using a hearing health technician) ADL-Treatment Eating (QC): 6 (Per pt and spouse report.) Oral Hygiene (QC): 4 (SBA) Shower/Bathe Self (QC): 3 (Min A with washing buttocks. Pt provided with LH sponge and able to wash LEs.) Upper Body Dressing (QC): 5 Lower Body Dressing (QC): 3 (Min A overall) On/Off Footwear (QC): 5 Toileting Hygiene (QC): 3 (Pt able to manage pants, assist with hygiene.) Toilet Transfer (QC): 4 (SBA) Assessment/Plan Assessment and Plan Assess & Plan/Chief Complaint Assessment: Myopathy Alcoholism with recent cessation 6 weeks ago Lumbar spine surgery 05/2021 L3 compression fracture Fall of 2021 [place] Fatty liver Depression BPH DM HTN Hypokalemia Hyponatremia Presumed MAGNUS needs sleep study Recent CO2 narcosis on biPAP Plan: Rehab protocol Monitor closely Lovenox 03/21/2022: Increase activity Lovenox 03/22/2022: Work on motivation Tendency for apathy 03/23/2022: Apathy will be a challenge post DC 03/24/2022: Talked about MAGNUS again Monitor closely 03/25/2022: Monitor closely 03/26/2022: Improved status (1) Myopathy MYRNA LOWRY DO Mar 26, 2022 12:05
--- NOTE | 2022-03-26 13:26 | Physical Therapy Daily Note ---
PT Daily Note-Current Subjective Pt. agrees to Rx, states he has had a problem getting to the urinal in time and in not spilling it. Pt. c/o pain during gait and wt bearing at 8/10, but at rest 0/10 Pain Numeric Pain Scale: 8 Location: Right (and left) Location Body Site: Back (hips and knees) Pain Description: Stabbing Section J - Health Conditions 1. Rarely or not at all 2. Occasionally 3. Frequently 4. Almost constantly 8. Unable to answer Pain Effect on Sleep: 2 Pain Interference with Therapy: 3 Pain Interference w/Day-to-Day: 1 Mental Status Patient Orientation: Normal For Age Transfers SCALE: Activities may be completed with or without assistive devices. 3-Ovdwuskcog-japjeui completes the activity by him/herself with no assistance from a helper. 5-Set-up or Clean-up Assistance-helper sets up or cleans up; patient completes activity. [place] assists only prior to or following the activity. 4-Supervision or Touching Assistance-helper provides verbal cues and/or touch ing/steadying and/or contact guard assistance as patient completes activity. Assistance may be provided throughout the activity or intermittently. 3-Partial/Moderate Assistance-helper does LESS THAN HALF the effort. [place] lifts, holds or supports trunk or limbs, but provides less than half the effort. 2-Substantial/Maximal Assistance-helper does MORE THAN HALF the effort. [place] lifts or holds trunk or limbs and provides more than half the effort. 3-Grmnitmed-mtocxg does ALL the effort. Patient does none of the effort to complete the activity. Or, the assistance of 2 or more helpers is required for the patient to complete the activity. If activity was not attempted, code reason: 7-Patient Refused. 9-Not Applicable-not attempted and the patient did not perform the activity before the current illness, exacerbation or injury. 10-Not Attempted due to Environmental Limitations-(lack of equipment, weather restraints, etc.). 88-Not Attempted due to Medical Conditions or Safety Concerns. Sit to Lying (QC): 6 Lying to Sitting/Side of Bed(Q: 6 Sit to Stand (QC): 6 Chair/Xgd-xm-Utxiy Xfer(QC): 6 Car Transfer (QC): 6 Weight Bearing Full Weight Bearing Full Weight Bearing Gait Training Does the Patient Walk?: Yes Walk 150 ft (QC): 6 Gait Persons Needed: 1 Gait Assistive Device: FWW Exercises Supine Ex: Ankle pumps, Quad Set, Glut sets, Heel Slides, Straight leg raise, Hip abd/add Supine Reps: 15 Treatments TRFs, car and bed, gait LE sup ex Assessment Current Status: Good Progress good progress , gives full effort PT Short Term Goals Short Term Goals Time Frame: Mar 27, 2022 Sit to stand: 4 (CGA) Chair/zwu-ej-vepgc transfer: 4 (SBA) Walk 10 feet: 4 (SBA) Walk 50 feet with two turns: 4 (SBA) Walk 150 feet: 4 (SBA) PT Residential Goals Residential Goals PT Director Of Alumni Relations Goals Time Frame: Apr 03, 2022 Roll Left & Right (QC): 6 Sit to Lying (QC): 6 Lying-Sitting on Side/Bed(QC): 6 Sit to Stand (QC): 6 Chair/Hyg-st-Sihbm Xfer(QC): 6 Toilet Transfer (QC): 6 Car Transfer (QC): 6 Does the Patient Walk: Yes Walk 10 feet (QC): 6 Walk 50ft with 2 Turns (QC): 6 Walk 150 ft (QC): 6 Walking 10ft on Uneven Surface: 6 1 Step (curb) (QC): 4 4 Steps (QC): 4 12 Steps (QC): 88 Picking up an Object (QC): 6 Wheel 50 feet with 2 turns (QC: 9 Wheel 150 feet: 9 PT Plan Treatment/Plan Treatment Plan: Continue Plan of Care Treatment Plan: Bed Mobility, Education, Functional Activity Марина, Functional Strength, Group Therapy, Gait, Safety, Therapeutic Exercise, Transfers Treatment Duration: Apr 03, 2022 Frequency: At least 5 of 7 days/Wk (IRF) Estimated Hrs Per Day: 1.5 hours per day Patient and/or Family Agrees t: Yes Safety Risks/Education Patient Education: Gait Training, Transfer Techniques, Correct Positioning, Safety Issues Teaching Recipient: Patient Teaching Methods: Demonstration, Discussion Response to Teaching: Verbalize Understanding, Return Demonstration, Reinforcement Needed Time Time In: 1300 Time Out: 1330 DATE: Mar 26, 2022 Total Billed Treatment Time: 30 Total Billed Treatment 1,GT17m,FA13m EZIO MICHELLE CUTTER FIRST Mar 26, 2022 13:26
[2022-03-26 20:23] VITALS: BP 146/91
[2022-03-27] MEDS ORDERED: POTA-169 PO (05:08)
[2022-03-27] MEDS ORDERED: SPIR25TA5 PO (05:08)
[2022-03-27] MEDS ORDERED: MICO90PO TOP (05:08)
[2022-03-27] MEDS ORDERED: DULO30CA3 PO (05:08)
[2022-03-27] MEDS ORDERED: FURO40TA4 PO (05:08)
[2022-03-27] MEDS: ENOXAPARIN 40 MG/0.4 ML (LOVENOX) SYR SC SCH ×2 (06:20→17:35)
--- NOTE | 2022-03-27 06:21 | PM&R Progress Note ---
Subjective HPI/CC On Admission Date Seen by Provider: Mar 27, 2022 Time Seen by Provider: 12:30 Subjective/Events-last exam 03/27/2022: Improved status Appears brighter and less apathetic DC planned for Wednesday Meds sent in to [place] 03/26/2022: Improve overall Participating well No pain reported 03/25/2022: Doing well Improved ambulation No pain except back 03/24/2022: Doing well Moving around better OOB more each day No pain reported except chronic back 03/23/2022: Motivation is an issue I told him he needs to stay out of bed More interaction with the patient will be needed 03/22/2022: Patient much improved at bedside had some questions and social worker school will be meeting with her tomorrow Improved status 03/21/2022: Patient much improved Low potassium so will increase supplement Participation is good Tends to be sedentary and likes to be in bed so we will take note of that and increase activity No pain reported BM+ Review of Systems General: Fatigue, Malaise Objective Exam Vital Signs Vital Signs Date Time Temp Pulse Resp B/P (MAP) Pulse Ox O2 Delivery O2 Flow Rate FiO2 03/27/22 08:29 Room Air 03/27/22 07:19 36.3 101 20 144/94 (111) 96 Capillary Refill : General Appearance: No Apparent Distress, WD/WN, Chronically ill, Obese HEENT: PERRL/EOMI, Normal ENT Inspection, Pharynx Normal Neck: Full Range of Motion, Normal Inspection, Non Tender, Supple, Carotid Bruit Respiratory: Chest Non Tender, Lungs Clear, Normal Breath Sounds, No Accessory Muscle Use, No Respiratory Distress Cardiovascular: Regular Rate, Rhythm, No Edema, No Gallop, No JVD, No Murmur, Normal Peripheral Pulses Gastrointestinal: Normal Bowel Sounds, No Organomegaly, No Pulsatile Mass, Non Tender, Soft Back: Normal Inspection, No CVA Tenderness, No Vertebral Tenderness Extremity: Normal Capillary Refill, Normal Inspection, Normal Range of Motion, Non Tender, No Calf Tenderness, No Pedal Edema Neurologic/Psychiatric: Alert, Oriented x3, child welfare counselor II-XII Norm as Tested, Abnormal Gait, Depressed Affect, Motor Weakness (generalized) Skin: Normal Color, Warm/Dry Lymphatic: No Adenopathy Results/Procedures Lab Patient resulted labs reviewed. FIM Transfers Therapy Code Descriptions/Definitions Functional [place] Measure: 0=Not Assessed/NA 4=Minimal Assistance 1=Total Assistance 5=Supervision or Setup 2=Maximal Assistance 6=Modified [place] 3=Moderate Assistance 7=Complete IndependenceSCALE: Activities may be completed with or without assistive devices. 1-Jgjtqtzxem-ldkwmdf completes the activity by him/herself with no assistance from a helper. 5-Set-up or Clean-up Assistance-helper sets up or cleans up; patient completes activity. [place] assists only prior to or following the activity. 4-Supervision or Touching Assistance-helper provides verbal cues and/or touching/steadying and/or contact guard assistance as patient completes activ ity. Assistance may be provided throughout the activity or intermittently. 3-Partial/Moderate Assistance-helper does LESS THAN HALF the effort. [place] lifts, holds or supports trunk or limbs, but provides less than half the effort. 2-Substantial/Maximal Assistance-helper does MORE THAN HALF the effort. [place] lifts or holds trunk or limbs and provides more than half the effort. 2-Qlxhadaep-khhwjv does ALL the effort. Patient does none of the effort to complete the activity. Or, the assistance of 2 or more helpers is required for the patient to complete the activity. If activity was not attempted, code reason: 7-Patient Refused. 9-Not Applicable-not attempted and the patient did not perform the activity before the current illness, exacerbation or injury. 10-Not Attempted due to Environmental Limitations-(lack of equipment, weather restraints, etc.). 88-Not Attempted due to Medical Conditions or Safety Concerns. Roll Left to Right (QC): 6 Sit to Lying (QC): 6 Sit to Stand (QC): 6 Chair/Xrw-vu-[place] Xfer(QC): 6 Car Transfer (QC): 6 Gait Training Does the Patient Walk?: Yes Distance: 150'x2, 100' Walk 10 feet (QC): 6 Walk 50 ft with 2 Turns(QC): 6 Walk 150 ft (QC): 6 Walking 10ft/uneven surface-QC: 4 Gait Persons Needed: 1 Gait Assistive Device: FWW Wheelchair Training Does the Pt Use a Wheelchair?: No Wheel 50 ft with 2 turns (QC): 9 Wheel 150 ft (QC): 9 Stair Training 1 Step (curb) (QC): 88 4 Steps (QC): 88 12 Steps (QC): 88 Balance Picking up an Object (QC): 4 (CGA using a painter touch up) ADL-Treatment Eating (QC): 6 (Per pt and spouse report.) Oral Hygiene (QC): 4 (SBA) Shower/Bathe Self (QC): 3 (Min A with washing buttocks. Pt provided with LH sponge and able to wash LEs.) Upper Body Dressing (QC): 5 Lower Body Dressing (QC): 3 (Min A overall) On/Off Footwear (QC): 5 Toileting Hygiene (QC): 3 (Pt able to manage pants, assist with hygiene.) Toilet Transfer (QC): 4 (SBA) Assessment/Plan Assessment and Plan Assess & Plan/Chief Complaint Assessment: Myopathy Alcoholism with recent cessation 6 weeks ago Lumbar spine surgery 05/2021 L3 compression fracture Fall of 2021 [place] Fatty liver Depression BPH DM HTN Hypokalemia Hyponatremia Presumed MAGNUS needs sleep study Recent CO2 narcosis on biPAP Plan: Rehab protocol Monitor closely Lovenox 03/21/2022: Increase activity Lovenox 03/22/2022: Work on motivation Tendency for apathy 03/23/2022: Apathy will be a challenge post DC 03/24/2022: Talked about MAGNUS again Monitor closely 03/25/2022: Monitor closely 03/26/2022: Improved status 03/27/2022: Monitor closely (1) MYRNA Ackerman DO Mar 27, 2022 06:21
[2022-03-27 07:19] VITALS: BP 144/94
[2022-03-27] MEDS: SPIRONOLACTONE 25 MG (ALDACTONE) TAB PO SCH (08:11)
[2022-03-27] MEDS: DULoxetine 30 MG (CYMBALTA) CAP PO SCH (08:11)
[2022-03-27] MEDS: KCL 20 MEQ TAB (K-DUR) PO SCH ×3 (08:11→17:34)
[2022-03-27] MEDS: FUROSEMIDE 40 MG (LASIX) TAB PO SCH (08:11)
[2022-03-27] MEDS: ACETAMINOPHEN 325 MG TABLET PO PRN ×2 (08:12→13:29)
[2022-03-27] MEDS: polyethylene glycoL POWDER 17 GM (MIRALAX) PACK PO SCH ×2 (08:14→20:56)
[2022-03-27] MEDS: DOCUSATE SODIUM 100 MG (COLACE) CAP PO SCH ×2 (08:14→20:56)
[2022-03-27] MEDS: SENNA W/DOCUSATE (SENOKOT S) TABLET PO SCH ×2 (08:14→20:56)
[2022-03-27] MEDS: MICONAZOLE 2% POWDER (DESENEX AF) 90 GM TOP SCH ×2 (08:14→20:42)
--- NOTE | 2022-03-27 09:25 | Occupational Ther Daily Note ---
OT Current Status-Daily Note Subjective Pt up in recliner, agreeable to OT Tx. 5/10 pain in back and LEs. Mental Status/Objective Patient Orientation: Person, Place, Time, Situation ADL-Treatment Therapy Code Descriptions/Definitions Functional [place] Measure: 0=Not Assessed/NA 4=Minimal Assistance 1=Total Assistance 5=Supervision or Setup 2=Maximal Assistance 6=Modified [place] 3=Moderate Assistance 7=Complete IndependenceSCALE: Activities may be completed with or without assistive devices. 8-Fpauypiizw-qmvwxlj completes the activity by him/herself with no assistance from a helper. 5-Set-up or Clean-up Assistance-helper sets up or cleans up; patient completes activity. [place] assists only prior to or following the activity. 4-Supervision or Touching Assistance-helper provides verbal cues and/or touching/steadying and/or contact guard assistance as patient completes activity. Assistance may be provided throughout the activity or intermittently. 3-Partial/Moderate Assistance-helper does LESS THAN HALF the effort. [place] lifts, holds or supports trunk or limbs, but provides less than half the effort. 2-Substantial/Maximal Assistance-helper does MORE THAN HALF the effort. [place] lifts or holds trunk or limbs and provides more than half the effort. 2-Cxztargty-yxzfry does ALL the effort. Patient does none of the effort to complete the activity. Or, the assistance of 2 or more helpers is required for the patient to complete the activity. If activity was not attempted, code reason: 7-Patient Refused. 9-Not Applicable-not attempted and the patient did not perform the activity before the current illness, exacerbation or injury. 10-Not Attempted due to Environmental Limitations-(lack of equipment, weather restraints, etc.). 88-Not Attempted due to Medical Conditions or Safety Concerns. Eating (QC): 6 Oral Hygiene (QC): 6 Shower/Bathe Self (QC): 3 (Min A with washing buttocks.) Upper Body Dressing (QC): 6 Lower Body Dressing (QC): 6 On/Off Footwear: 4 (min VCs for sock aide.) Toileting Hygiene (QC): 3 (min A with posterior hygiene.) Toilet Transfer (QC): 6 Other Treatment Pt in recliner, agreeable to OT Tx. Pt used FWW to gather clothes from closet, transfer into bathroom and onto toilet. Pt completed toileting, min A with posterior hygiene. Pt has attempted to use toilet aide, but unable to thoroughly clean buttocks. Pt then transferred to SC, doffed clothes, completed shower, then transferred to EOB to don clothes. Pt required min VCs for use of sock aide to don socks. Pt transferred to recliner using FWW independently. Post tx, pt in recliner, call light in reach and all needs met. Education OT Patient Education: Correct positioning, Energy conservation, Modified ADL techniques, Progress toward Goal/Update tx plan, Purpose of tx/functional activities, Rehab process Teaching Recipient: Patient Teaching Methods: Discussion Response to Teaching: Verbalize Understanding BIMS CAM BIMS Expression of Ideas and Wants: Without Difficulty Understanding Verbal Content: Understands Brief Interview/Mental Status: Yes IRF CRIS BIMS: IRF CRIS BIMS Response (Comments) Value Repitition of Three Words Three 3 Recalls Socks Yes, No Cue Required 2 Recalls Blue Yes, No Cue Required 2 Recalls Bed Yes, No Cue Required 2 Year Correct 3 Month Accurate Within 5 Days 2 Day Correct 1 Total 15 Should Staff Asses. Mental St.: No CAM Mental Status Change/Baseline: 0 Inattention: 0 Disorganized thinkin Altered level of consciousness: 0 OT Short Term Goals Short Term Goals Time Frame: Apr 01, 2022 Toileting hygiene: 4 Shower/bathe self: 4 Lower body dressin Putting on/taking off footwear: 4 OT Jail Goals Heel Cover Softener Goals Time Frame: Apr 10, 2022 Acute change in mental status: 0 Inattention: 0 Disorganized thinkin Altered level of consciousness: 0 Eating (QC): 6 (met) Oral Hygiene (QC): 6 (met) Toileting Hygiene (QC): 6 (not met) Shower/Bathe Self (QC): 6 (not met) Upper Body Dressing (QC): 6 (met) Lower Body Dressing (QC): 6 (met) On/Off Footwear (QC): 6 (not met) Additional Goals: 1-Demonstrate ADL Tasks, 2-Verbalize Understanding, 3- ImproveStrength/Марина 1=Demonstrate adherence to instructed precautions during ADL tasks. 2=Patient will verbalize/demonstrate understanding of assistive devices/modifications for ADL. 3=Patient will improve strength/tolerance for activity to enable patient to perform ADL's. OT Education/Plan Problem List/Assessment Assessment: Decreased Activ Tolerance, Decreased UE Strength, Impaired I ADL's, Impaired Self-Care Skills Discharge Recommendations Plan/Recommendations: Continue POC Treatment Plan/Plan of Care Patient would benefit from OT for education, treatment and training to promote independence in ADL's, mobility, safety and/or upper extremity function for ADL's. Plan of Care: ADL Retraining, Functional Mobility, Group Exercise/Act as Ind, UE Funct Exercise/Act Treatment Duration: Apr 10, 2022 Frequency: At least 5 of 7 days/Wk (IRF) Estimated Hrs Per Day: 1.5 hours per day Agreement: Yes Rehab Potential: Good Time Start Time: 08:45 Stop Time: 09:45 DATE: Mar 27, 2022 Total Time Billed (hr/min): 60 Billed Treatment Time 1, ADL 4 IDALIA SCRUGGS OT Mar 27, 2022 09:25
--- NOTE | 2022-03-27 11:01 | Physical Therapy Daily Note ---
PT Daily Note-Current Subjective Pt. agrees to Rx Pain Numeric Pain Scale: 4 Location: Medial Location Body Site: Back Pain Description: [place] Section J - Health Conditions 1. Rarely or not at all 2. Occasionally 3. Frequently 4. Almost constantly 8. Unable to answer Pain Effect on Sleep: 2 Pain Interference with Therapy: 2 Pain Interference w/Day-to-Day: 1 Mental Status Patient Orientation: Normal For Age Transfers SCALE: Activities may be completed with or without assistive devices. 4-Injsyduabz-oyfriru completes the activity by him/herself with no assistance from a helper. 5-Set-up or Clean-up Assistance-helper sets up or cleans up; patient completes activity. [place] assists only prior to or following the activity. 4-Supervision or Touching Assistance-helper provides verbal cues and/or touching/steadying and/or contact guard assistance as patient completes activity. Assistance may be provided throughout the activity or intermittently. 3-Partial/Moderate Assistance-helper does LESS THAN HALF the effort. [place] lifts, holds or supports trunk or limbs, but provides less than half the effort. 2-Substantial/Maximal Assistance-helper does MORE THAN HALF the effort. [place] lifts or holds trunk or limbs and provides more than half the effort. 2-Aohymciva-spsqln does ALL the effort. Patient does none of the effort to complete the activity. Or, the assistance of 2 or more helpers is required for the patient to complete the activity. If activity was not attempted, code reason: 7-Patient Refused. 9-Not Applicable-not attempted and the patient did not perform the activity before the current illness, exacerbation or injury. 10-Not Attempted due to Environmental Limitations-(lack of equipment, weather restraints, etc.). 88-Not Attempted due to Medical Conditions or Safety Concerns. Roll Left & Right (QC): 6 Sit to Lying (QC): 6 Lying to Sitting/Side of Bed(Q: 6 Sit to Stand (QC): 6 Chair/Kev-hg-Prmjb Xfer(QC): 6 Toilet Transfer (QC): 6 Car Transfer (QC): 6 Weight Bearing Full Weight Bearing Full Weight Bearing Gait Training Does the Patient Walk?: Yes Walk 10 feet (QC): 6 Walk 50 ft with 2 Turns(QC): 6 Walk 150 ft (QC): 6 Walking 10ft/uneven surface-QC: 6 Gait Persons Needed: 1 Gait Assistive Device: FWW Stair Training Stair Training: Handrails/: 2 handrails #of Steps: 4 1 Step (curb) (QC): 4 4 Steps (QC): 4 12 Steps (QC): 88 Stairs: Pattern: Step to slow, instruction every step fot wt bearing and sequence Balance Picking up an Object (QC): 6 Exercises Supine Ex: Ankle pumps, Quad Set, Rolling, Glut sets, Heel Slides, Scooting, Straight leg raise, Hip abd/add Supine Reps: 20 Treatments QC, gait, TRFs, stairs, pt. given written illustrated ex program and demonstrated understnding Assessment Current Status: Good Progress meets goals PT Short Term Goals Short Term Goals Time Frame: Mar 27, 2022 Sit to stand: 4 (CGA) Chair/nuw-oe-lenno transfer: 4 (SBA) Walk 10 feet: 4 (SBA) Walk 50 feet with two turns: 4 (SBA) Walk 150 feet: 4 (SBA) PT Penitentiary Goals Penitentiary Goals PT Penitentiary Goals Time Frame: Apr 03, 2022 Roll Left & Right (QC): 6 Sit to Lying (QC): 6 Lying-Sitting on Side/Bed(QC): 6 Sit to Stand (QC): 6 Chair/Urj-zi-Czpsd Xfer(QC): 6 Toilet Transfer (QC): 6 Car Transfer (QC): 6 Does the Patient Walk: Yes Walk 10 feet (QC): 6 Walk 50ft with 2 Turns (QC): 6 Walk 150 ft (QC): 6 Walking 10ft on Uneven Surface: 6 1 Step (curb) (QC): 4 4 Steps (QC): 4 12 Steps (QC): 88 Picking up an Object (QC): 6 Wheel 50 feet with 2 turns (QC: 9 Wheel 150 feet: 9 PT Plan Treatment/Plan Treatment Plan: Continue Plan of Care Treatment Plan: Bed Mobility, Education, Functional Activity Марина, Functional Strength, Group Therapy, Gait, Safety, Therapeutic Exercise, Transfers Treatment Duration: Apr 03, 2022 Frequency: At least 5 of 7 days/Wk (IRF) Estimated Hrs Per Day: 1.5 hours per day Patient and/or Family Agrees t: Yes Safety Risks/Education Patient Education: Gait Training, Transfer Techniques, Steps, Reviewed Precautions, Correct Positioning, Disease Process, Safety Issues Teaching Recipient: Patient Teaching Methods: Demonstration, Discussion Response to Teaching: Verbalize Understanding, Return Demonstration, Reinforcement Needed Time Time In: 1000 Time Out: 1100 DATE: Mar 27, 2022 Total Billed Treatment Time: 60 Total Billed Treatment 1,FA30m,GT15m,EX15m EZIO MICHELLE FINANCE ADVISOR Mar 27, 2022 11:01
--- NOTE | 2022-03-27 12:24 | D/C HH Face to Face Order ---
D/C HH Face to Face Orders Reconcile Patient Problems Problems Reviewed?: Yes Instructions for Patient HH Patient Instructions/FollowUp: pcp 1 week Physician to follow Patient: pcp Discharge Diet for Home: No Restrictions Patient Problems: myopathy Patient Data-Allergies,Ht & Wt Patient Allergies: Coded Allergies: No Known Drug Allergies (Unverified , 03/20/22) Home Health Need/Face to Face Date of Face to Face: Mar 27, 2022 Clinical Findings: Generalized weakness and fatigue, Instability, Muscle w eakness, Pain with ambulation, Shortness of breath, Unsteady gait I have seen Pt mzpy-hf-pquf: Yes Discharged To: Home Diagnosis/Conditions: Debility Patient is Homebound due to: Yvon fall risk due to instabilty, Muscle weakness Homebound Status Due to the above stated illness, injury or surgical procedure (medical condition or diagnosis) and associated clinical findings, the patient is homebound because of his/her inability to leave home except with aid of a supportive device and/or person AND leaving the home requires a considerable and taxing effort or is medically contraindicated. Pt req the following assistanc: Walker Home Health Nursing Orders Home Health Services Order: Nursing Services, [employer]her Foreman-Evaluate & Treat, Physical Therapy-Evaluate & Treat Certify Stmt I certify that this patient is under my care and that I, a nurse practitioner or a physician; a anatomic pathology assistant working with me, had a face to face encounter that -meets the physician face to face encounter requirements with this patient as dated. MYRNA LOWRY DO Mar 27, 2022 12:24
--- NOTE | 2022-03-27 13:25 | Physical Therapy Daily Note ---
PT Daily Note-Current Subjective Agrees to Rx, states he understands his HEP from paper illustrations. pain in back at 7/10. Pain Numeric Pain Scale: 7 Location: Medial Location Body Site: Back Pain Description: Ache Section J - Health Conditions 1. Rarely or not at all 2. Occasionally 3. Frequently 4. Almost constantly 8. Unable to answer Pain Effect on Sleep: 2 Pain Interference with Therapy: 3 Pain Interference w/Day-to-Day: 1 Mental Status Patient Orientation: Normal For Age Transfers SCALE: Activities may be completed with or without assistive devices. 4-Qveqwqfpoe-nfeorhi completes the activity by him/herself with no assistance from a helper. 5-Set-up or Clean-up Assistance-helper sets up or cleans up; patient completes activity. Logan assists only prior to or following the activity. 4-Supervision or Touching Assistance-helper provides verbal cues and/or touching/steadying and/or contact guard assistance as patient completes activity. Assistance may be provided throughout the activity or intermittently. 3-Partial/Moderate Assistance-helper does LESS THAN HALF the effort. Logan lif ts, holds or supports trunk or limbs, but provides less than half the effort. 2-Substantial/Maximal Assistance-helper does MORE THAN HALF the effort. Logan lifts or holds trunk or limbs and provides more than half the effort. 4-Rjhabgtzx-wopwzm does ALL the effort. Patient does none of the effort to complete the activity. Or, the assistance of 2 or more helpers is required for the patient to complete the activity. If activity was not attempted, code reason: 7-Patient Refused. 9-Not Applicable-not attempted and the patient did not perform the activity before the current illness, exacerbation or injury. 10-Not Attempted due to Environmental Limitations-(lack of equipment, weather restraints, etc.). 88-Not Attempted due to Medical Conditions or Safety Concerns. all TRFs bed and chair and toilet indep Weight Bearing Full Weight Bearing Full Weight Bearing Gait Training Gait Assistive Device: FWW 50 ft x 3 in room mod I Exercises Supine Ex: Glut sets, Straight leg raise, Hip abd/add (side) Supine Reps: 20 Seated Therapy Exercises: Sit to stand Seated Reps: 10 Treatments review and performed HEP, gait, TRFs Assessment Current Status: Good Progress PT Short Term Goals Short Term Goals Time Frame: Mar 27, 2022 Sit to stand: 4 (CGA) Chair/hbd-nj-bftog transfer: 4 (SBA) Walk 10 feet: 4 (SBA) Walk 50 feet with two turns: 4 (SBA) Walk 150 feet: 4 (SBA) PT Prison Goals Prison Goals PT Senior Executive Compensation Analyst Goals Time Frame: Apr 03, 2022 Roll Left & Right (QC): 6 Sit to Lying (QC): 6 Lying-Sitting on Side/Bed(QC): 6 Sit to Stand (QC): 6 Chair/Btm-il-Sblhp Xfer(QC): 6 Toilet Transfer (QC): 6 Car Transfer (QC): 6 Does the Patient Walk: Yes Walk 10 feet (QC): 6 Walk 50ft with 2 Turns (QC): 6 Walk 150 ft (QC): 6 Walking 10ft on Uneven Surface: 6 1 Step (curb) (QC): 4 4 Steps (QC): 4 12 Steps (QC): 88 Picking up an Object (QC): 6 Wheel 50 feet with 2 turns (QC: 9 Wheel 150 feet: 9 PT Plan Treatment/Plan Treatment Plan: Continue Plan of Care Treatment Plan: Bed Mobility, Education, Functional Activity Маирна, Functional Strength, Group Therapy, Gait, Safety, Therapeutic Exercise, Transfers Treatment Duration: Apr 03, 2022 Frequency: At least 5 of 7 days/Wk (IRF) Estimated Hrs Per Day: 1.5 hours per day Patient and/or Family Agrees t: Yes Safety Risks/Education Patient Education: Gait Training, Correct Positioning Response to Teaching: Reinforcement Needed Time Time In: 1300 Time Out: 1330 DATE: Mar 27, 2022 Total Billed Treatment Time: 30 Total Billed Treatment 1,EX19m,FA11m EZIO MICHELLE CYCLING INSTRUCTOR Mar 27, 2022 13:25
--- NOTE | 2022-03-27 14:39 | Occupational Ther Daily Note ---
OT Current Status-Daily Note Subjective Pt alert, sitting in recliner. Pt agrees to therapy. Pt c/o soreness in B shldrs. Pt educated on stretching to decrease soreness. Mental Status/Objective Patient Orientation: Person, Place, Time, Situation ADL-Treatment Therapy Code Descriptions/Definitions Functional [place] Measure: 0=Not Assessed/NA 4=Minimal Assistance 1=Total Assistance 5=Supervision or Setup 2=Maximal Assistance 6=Modified [place] 3=Moderate Assistance 7=Complete IndependenceSCALE: Activities may be completed with or without assistive devices. 8-Wgsfvnihal-ythnali completes the activity by him/herself with no assistance from a helper. 5-Set-up or Clean-up Assistance-helper sets up or cleans up; patient completes activity. Elton assists only prior to or following the activity. 4-Supervision or Touching Assistance-helper provides verbal cues and/or touching/steadying and/or contact guard assistance as patient completes activity. Assistance may be provided throughout the activity or intermittently. 3-Partial/Moderate Assistance-helper does LESS THAN HALF the effort. Elton lifts, holds or supports trunk or limbs, but provides less than half the effort. 2-Substantial/Maximal Assistance-helper does MORE THAN HALF the effort. Elton lifts or holds trunk or limbs and provides more than half the effort. 6-Cdkhbhvxd-tgmbzc does ALL the effort. Patient does none of the effort to complete the activity. Or, the assistance of 2 or more helpers is required for the patient to complete the activity. If activity was not attempted, code reason: 7-Patient Refused. 9-Not Applicable-not attempted and the patient did not perform the activity before the current illness, exacerbation or injury. 10-Not Attempted due to Environmental Limitations-(lack of equipment, weather restraints, etc.). 88-Not Attempted due to Medical Conditions or Safety Concerns. Other Treatment Working on proficiency of donning socks with sock aide. Pt doffs socks with AE. Pt able to demonstrated ability to don socks with 1 cue, but verbalized understanding of sequence. Pt then completed B UE theraband exercises with verbal cues and HEP. Skilled instruction to complete with correct technique and modifications due to increased soreness of B UEs. After session, pt lying in bed with call light/phone in reach. All needs met in room. OT Short Term Goals Short Term Goals Time Frame: Apr 01, 2022 Toileting hygiene: 4 Shower/bathe self: 4 Lower body dressin Putting on/taking off footwear: 4 OT Tool Grinder Operator Surface Goals Tool Grinder Operator Surface Goals Time Frame: Apr 10, 2022 Acute change in mental status: 0 Inattention: 0 Disorganized thinkin Altered level of consciousness: 0 Eating (QC): 6 (met) Oral Hygiene (QC): 6 (met) Toileting Hygiene (QC): 6 (not met) Shower/Bathe Self (QC): 6 (not met) Upper Body Dressing (QC): 6 (met) Lower Body Dressing (QC): 6 (met) On/Off Footwear (QC): 6 (not met) Additional Goals: 1-Demonstrate ADL Tasks, 2-Verbalize Understanding, 3- ImproveStrength/Марина 1=Demonstrate adherence to instructed precautions during ADL tasks. 2=Patient will verbalize/demonstrate understanding of assistive devices/modifications for ADL. 3=Patient will improve strength/tolerance for activity to enable patient to perform ADL's. OT Education/Plan Problem List/Assessment Assessment: Decreased Activ Tolerance, Impaired Self-Care Skills Discharge Recommendations Plan/Recommendations: Continue POC Treatment Plan/Plan of Care Patient would benefit from OT for education, treatment and training to promote independence in ADL's, mobility, safety and/or upper extremity function for ADL's. Plan of Care: ADL Retraining, Functional Mobility, Group Exercise/Act as Ind, UE Funct Exercise/Act Treatment Duration: Apr 10, 2022 Frequency: At least 5 of 7 days/Wk (IRF) Estimated Hrs Per Day: 1.5 hours per day Agreement: Yes Rehab Potential: Good Time Start Time: 14:00 Stop Time: 14:30 DATE: Mar 27, 2022 Total Time Billed (hr/min): 30 Billed Treatment Time 1 visit-ADL 1 (20 min) EX 1 (10 min) ISAAK WADSWORTH Mar 27, 2022 14:39
[2022-03-27 21:00] VITALS: BP 129/75
[2022-03-28] MEDS: ENOXAPARIN 40 MG/0.4 ML (LOVENOX) SYR SC SCH ×2 (06:38→17:11)
--- NOTE | 2022-03-28 06:39 | PM&R Progress Note ---
Subjective HPI/CC On Admission Date Seen by Provider: Mar 28, 2022 Time Seen by Provider: 12:00 Subjective/Events-last exam 03/28/2022: Patient doing really well Discharge plan for tomorrow 03/27/2022: Improved status Appears brighter and less apathetic DC planned for Wednesday Meds sent in to [facility] 03/26/2022: Improve overall Participating well No pain reported 03/25/2022: Doing well Improved ambulation No pain except back 03/24/2022: Doing well Moving around better OOB more each day No pain reported except chronic back 03/23/2022: Motivation is an issue I told him he needs to stay out of bed More interaction with the patient will be needed 03/22/2022: Patient much improved at bedside had some questions and public health social worker will be meeting with her tomorrow Improved status 03/21/2022: Patient much improved Low potassium so will increase supplement Participation is good Tends to be sedentary and likes to be in bed so we will take note of that and increase activity No pain reported BM+ Review of Systems General: Fatigue, Malaise Objective Exam Vital Signs Vital Signs Date Time Temp Pulse Resp B/P (MAP) Pulse Ox O2 Delivery O2 Flow Rate FiO2 03/28/22 08:42 Room Air 03/28/22 07:27 36.4 93 18 137/89 (105) 96 Capillary Refill : General Appearance: No Apparent Distress, WD/WN, Chronically ill, Obese HEENT: PERRL/EOMI, Normal ENT Inspection, Pharynx Normal Neck: Full Range of Motion, Normal Inspection, Non Tender, Supple, Carotid Bruit Respiratory: Chest Non Tender, Lungs Clear, Normal Breath Sounds, No Accessory Muscle Use, No Respiratory Distress Cardiovascular: Regular Rate, Rhythm, No Edema, No Gallop, No JVD, No Murmur, Normal Peripheral Pulses Gastrointestinal: Normal Bowel Sounds, No Organomegaly, No Pulsatile Mass, Non Tender, Soft Back: Normal Inspection, No CVA Tenderness, No Vertebral Tenderness Extremity: Normal Capillary Refill, Normal Inspection, Normal Range of Motion, Non Tender, No Calf Tenderness, No Pedal Edema Neurologic/Psychiatric: Alert, Oriented x3, drive in theater attendant II-XII Norm as Tested, Abnormal Gait, Depressed Affect, Motor Weakness (generalized) Skin: Normal Color, Warm/Dry Lymphatic: No Adenopathy Results/Procedures Lab Patient resulted labs reviewed. FIM Transfers Therapy Code Descriptions/Definitions Functional [place] Measure: 0=Not Assessed/NA 4=Minimal Assistance 1=Total Assistance 5=Supervision or Setup 2=Maximal Assistance 6=Modified [place] 3=Moderate Assistance 7=Complete IndependenceSCALE: Activities may be completed with or without assistive devices. 3-Sdlmyhhfwg-juytqlg completes the activity by him/herself with no assistance from a helper. 5-Set-up or Clean-up Assistance-helper sets up or cleans up; patient completes activity. [place] assists only prior to or following the activity. 4-Supervision or Touching Assistance-helper provides verbal cues and/or touching/steadying and/or contact guard assistance as patient completes activity. Assistance may be provided throughout the activity or intermittently. 3-Partial/Moderate Assistance-helper does LESS THAN HALF the effort. [place] lifts, holds or supports trunk or limbs, but provides less than half the effort. 2-Substantial/Maximal Assistance-helper does MORE THAN HALF the effort. [place]ett l ifts or holds trunk or limbs and provides more than half the effort. 5-Uyanwcrdd-zotwkx does ALL the effort. Patient does none of the effort to complete the activity. Or, the assistance of 2 or more helpers is required for the patient to complete the activity. If activity was not attempted, code reason: 7-Patient Refused. 9-Not Applicable-not attempted and the patient did not perform the activity before the current illness, exacerbation or injury. 10-Not Attempted due to Environmental Limitations-(lack of equipment, weather restraints, etc.). 88-Not Attempted due to Medical Conditions or Safety Concerns. Roll Left to Right (QC): 6 Sit to Lying (QC): 6 Sit to Stand (QC): 6 Chair/Syu-fy-Lbndo Xfer(QC): 6 Car Transfer (QC): 6 Gait Training Does the Patient Walk?: Yes Distance: 150'x2, 100' Walk 10 feet (QC): 6 Walk 50 ft with 2 Turns(QC): 6 Walk 150 ft (QC): 6 Walking 10ft/uneven surface-QC: 6 Gait Persons Needed: 1 Gait Assistive Device: FWW Wheelchair Training Does the Pt Use a Wheelchair?: No Wheel 50 ft with 2 turns (QC): 9 Wheel 150 ft (QC): 9 Stair Training Stair Training: Handrails/: 2 handrails #of Steps: 4 1 Step (curb) (QC): 4 4 Steps (QC): 4 12 Steps (QC): 88 Stairs: Pattern: Step to Balance Picking up an Object (QC): 6 ADL-Treatment Eating (QC): 6 Oral Hygiene (QC): 6 Shower/Bathe Self (QC): 3 (Min A with washing buttocks.) Upper Body Dressing (QC): 6 Lower Body Dressing (QC): 6 On/Off Footwear (QC): 4 (min VCs for sock aide.) Toileting Hygiene (QC): 3 (min A with posterior hygiene.) Toilet Transfer (QC): 6 Assessment/Plan Assessment and Plan Assess & Plan/Chief Complaint Assessment: Myopathy Alcoholism with recent cessation 6 weeks ago Lumbar spine surgery 05/2021 L3 compression fracture Fall of 2021 [place] Fatty liver Depression BPH DM HTN Hypokalemia Hyponatremia Presumed MAGNUS needs sleep study Recent CO2 narcosis on biPAP Plan: Rehab protocol Monitor closely Lovenox 03/21/2022: Increase activity Lovenox 03/22/2022: Work on motivation Tendency for apathy 03/23/2022: Apathy will be a challenge post DC 03/24/2022: Talked about MAGNUS again Monitor closely 03/25/2022: Monitor closely 03/26/2022: Improved status 03/27/2022: Monitor closely 03/28/2022: Maintain increased dose of Cymbalta (1) Myopathy MYRNA LOWRY DO Mar 28, 2022 06:39
[2022-03-28 07:27] VITALS: BP 137/89
[2022-03-28] MEDS: DULoxetine 30 MG (CYMBALTA) CAP PO SCH (08:49)
[2022-03-28] MEDS: FUROSEMIDE 40 MG (LASIX) TAB PO SCH (08:49)
[2022-03-28] MEDS: SPIRONOLACTONE 25 MG (ALDACTONE) TAB PO SCH (08:49)
[2022-03-28] MEDS: KCL 20 MEQ TAB (K-DUR) PO SCH ×3 (09:17→17:10)
[2022-03-28] MEDS: DOCUSATE SODIUM 100 MG (COLACE) CAP PO SCH ×2 (09:18→20:43)
[2022-03-28] MEDS: SENNA W/DOCUSATE (SENOKOT S) TABLET PO SCH ×2 (09:18→20:43)
[2022-03-28] MEDS: polyethylene glycoL POWDER 17 GM (MIRALAX) PACK PO SCH ×2 (09:18→20:43)
[2022-03-28] MEDS: MICONAZOLE 2% POWDER (DESENEX AF) 90 GM TOP SCH ×2 (09:18→20:44)
--- NOTE | 2022-03-28 10:14 | Physical Therapy Daily Note ---
PT Daily Note-Current Subjective Agrees to Rx. Pain Location: No Pain Reported Section J - Health Conditions 1. Rarely or not at all 2. Occasionally 3. Frequently 4. Almost constantly 8. Unable to answer Pain Effect on Sleep: 2 Pain Interference with Therapy: 3 Pain Interference w/Day-to-Day: 1 Mental Status Patient Orientation: Normal For Age Transfers SCALE: Activities may be completed with or without assistive devices. 8-Bxydggspge-azmtnsz completes the activity by him/herself with no assistance from a helper. 5-Set-up or Clean-up Assistance-helper sets up or cleans up; patient completes activity. [place] assists only prior to or following the activity. 4-Supervision or Touching Assistance-helper provides verbal cues and/or touching/steadying and/or contact guard assistance as patient completes activity. Assistance may be provided throughout the activity or intermittently. 3-Partial/Moderate Assistance-helper does LESS THAN HALF the effort. [place] lifts, holds or supports trunk or limbs, but provides less than half the effort. 2-Substantial/Maximal Assistance-helper does MORE THAN HALF the effort. [place] lifts or holds trunk or limbs and provides more than half the effort. 6-Joutkyzoh-fodreq does ALL the effort. Patient does none of the effort to complete the activity. Or, the assistance of 2 or more helpers is required for the patient to complete the activity. If activity was not attempted, code reason: 7-Patient Refused. 9-Not Applicable-not attempted and the patient did not perform the activity before the current illness, exacerbation or injury. 10-Not Attempted due to Environmental Limitations-(lack of equipment, weather restraints, etc.). 88-Not Attempted due to Medical Conditions or Safety Concerns. all TRFs mod I Weight Bearing Full Weight Bearing Full Weight Bearing Gait Training Does the Patient Walk?: Yes Gait Assistive Device: FWW 165 ft x 2 Exercises Seated Therapy Exercises: Sit to stand, Long arc quads Seated Reps: 15 Treatments gait, TRFs, revd HEP Assessment Current Status: Good Progress PT Short Term Goals Short Term Goals Time Frame: Mar 27, 2022 Sit to stand: 4 (CGA) Chair/his-zh-uzqsb transfer: 4 (SBA) Walk 10 feet: 4 (SBA) Walk 50 feet with two turns: 4 (SBA) Walk 150 feet: 4 (SBA) PT Fdc Goals Systems Applications Programming Lead Goals PT Systems Applications Programming Lead Goals Time Frame: Apr 03, 2022 Roll Left & Right (QC): 6 Sit to Lying (QC): 6 Lying-Sitting on Side/Bed(QC): 6 Sit to Stand (QC): 6 Chair/Jei-ei-Pgalt Xfer(QC): 6 Toilet Transfer (QC): 6 Car Transfer (QC): 6 Does the Patient Walk: Yes Walk 10 feet (QC): 6 Walk 50ft with 2 Turns (QC): 6 Walk 150 ft (QC): 6 Walking 10ft on Uneven Surface: 6 1 Step (curb) (QC): 4 4 Steps (QC): 4 12 Steps (QC): 88 Picking up an Object (QC): 6 Wheel 50 feet with 2 turns (QC: 9 Wheel 150 feet: 9 PT Plan Treatment/Plan Treatment Plan: Continue Plan of Care Treatment Plan: Bed Mobility, Education, Functional Activity Марина, Functional Strength, Group Therapy, Gait, Safety, Therapeutic Exercise, Transfers Treatment Duration: Apr 03, 2022 Frequency: At least 5 of 7 days/Wk (IRF) Estimated Hrs Per Day: 1.5 hours per day Patient and/or Family Agrees t: Yes Safety Risks/Education Patient Education: Gait Training, Transfer Techniques, Correct Positioning Time Time In: 845 Time Out: 900 DATE: Mar 28, 2022 Total Billed Treatment Time: 15 Total Billed Treatment 1,GT15m EZIO MICHELLE ENGINEERED WOOD DESIGNER Mar 28, 2022 10:14
[2022-03-28 19:20] VITALS: BP 174/89
[2022-03-29] MEDS: ENOXAPARIN 40 MG/0.4 ML (LOVENOX) SYR SC SCH (06:50)
[2022-03-29 07:30] VITALS: BP 120/87
--- NOTE | 2022-03-29 07:44 | Discharge Summary ---
Diagnosis/Chief Complaint Date of Admission Mar 20, 2022 at 12:15 Date of Discharge Discharge Date: Mar 29, 2022 Discharge Diagnosis Assessment: Myopathy Alcoholism with recent cessation 6 weeks ago Lumbar spine surgery 05/2021 L3 compression fracture Fall of 2021 [place] Fatty liver Depression BPH DM HTN Hypokalemia Hyponatremia Presumed MAGNUS needs sleep study Recent CO2 narcosis on biPAP Plan: Rehab protocol Monitor closely Lovenox 03/21/2022: Increase activity Lovenox 03/22/2022: Work on motivation Tendency for apathy 03/23/2022: Apathy will be a challenge post DC 03/24/2022: Talked about MAGNUS again Monitor closely 03/25/2022: Monitor closely 03/26/2022: Improved status 03/27/2022: Monitor closely 03/28/2022: Maintain increased dose of Cymbalta Discharge Summary Discharge Physical Examination Allergies: Coded Allergies: No Known Drug Allergies (Unverified , 03/20/22) Vitals & I&Os Vital Signs Date Time Temp Pulse Resp B/P (MAP) Pulse Ox O2 Delivery O2 Flow Rate FiO2 03/29/22 07:30 36.2 102 18 120/87 (98) 100 Room Air General Appearance: Alert, Oriented X3, Cooperative Respiratory: Clear to Auscultation Cardiovascular: Regular Rate Psych/Mental Status: Mental Status NL Hospital Course Was the Problem List Reviewed?: Yes Patient had a standard hospital course and ARU after he was found to have severe myopathy from alcoholism and compression fracture of a previous lumbar spine surgery. Patient required an increase in his antidepressant and participation in therapy was helpful for his depression. Labs remained stable. Alcohol cessation was counseled. Overall he did very well was able to discharge in improved condition. Labs (last 24 hrs) Laboratory Tests 03/21/22 05:52: White Blood Count 5.4, Red Blood Count 3.69L, Hemoglobin 11.3L, Hematocrit 33L, Mean Corpuscular Volume 89, Mean Corpuscular Hemoglobin 31, Mean Corpuscular Hemoglobin Concent 34, Red Cell Distribution Width 12.6, Platelet Count 335, Mean Platelet Volume 10.3, Immature Granulocyte % (Auto) 0, Neutrophils (%) (Auto) 39L, Lymphocytes (%) (Auto) 40, Monocytes (%) (Auto) 11, Eosinophils (%) (Auto) 8, Basophils (%) (Auto) 2, Neutrophils # (Auto) 2.1, Lymphocytes # (Auto) 2.2, Monocytes # (Auto) 0.6, Eosinophils # (Auto) 0.5H, Basophils # (Auto) 0.1, Immature Granulocyte # (Auto) 0.0, Sodium Level 134L, Potassium Level 3.1L, Chl oride Level 91L, Carbon Dioxide Level 30, Anion Gap 13, Blood Urea Nitrogen 6L, Creatinine 0.73, Estimat Glomerular Filtration Rate 110, BUN/Creatinine Ratio 8, Glucose Level 120H, Calcium Level 9.2, Corrected Calcium 10.1, Total Bilirubin 0.7, Aspartate Amino Transf (AST/SGOT) 30, Alanine Aminotransferase (ALT/SGPT) 15, Alkaline Phosphatase 69, Total Protein 6.0L, Albumin 2.9L 03/23/22 05:35: White Blood Count 6.2, Red Blood Count 3.64L, Hemoglobin 11.1L, Hematocrit 33L, Mean Corpuscular Volume 90, Mean Corpuscular Hemoglobin 31, Mean Corpuscular Hemoglobin Concent 34, Red Cell Distribution Width 12.8, Platelet Count 380, Mean Platelet Volume 10.4, Immature Granulocyte % (Auto) 0, Neutrophils (%) (Auto) 46, Lymphocytes (%) (Auto) 39, Monocytes (%) (Auto) 7, Eosinophils (%) (Auto) 6, Basophils (%) (Auto) 2, Neutrophils # (Auto) 2.9, Lymphocytes # (Auto) 2.4, Monocytes # (Auto) 0.4, Eosinophils # (Auto) 0.3, Basophils # (Auto) 0.1, Immature Granulocyte # (Auto) 0.0, Sodium Level 136, Potassium Level 3.7, Chloride Level 98, Carbon Dioxide Level 27, Anion Gap 11, Blood Urea Nitrogen 7, Creatinine 0.81, Estimat Glomerular Filtration Rate 107, BUN/Creatinine Ratio 9, Glucose Level 121H, Calcium Level 9.0, Corrected Calcium 9.8, Total Bilirubin 0.6, Aspartate Amino Transf (AST/SGOT) 39H, Alanine Aminotransferase (ALT/SGPT) 18, Alkaline Phosphatase 82, Total Protein 6.3L, Albumin 3.0L, Magnesium Level 1.7 Pending Labs Laboratory Tests 03/21/22 05:52: White Blood Count 5.4, Red Blood Count 3.69, Hemoglobin 11.3, Hematocrit 33, Mean Corpuscular Volume 89, Mean Corpuscular Hemoglobin 31, Mean Corpuscular Hemoglobin Concent 34, Red Cell Distribution Width 12.6, Platelet Count 335, Mean Platelet Volume 10.3, Immature Granulocyte % (Auto) 0, Neutrophils (%) (Auto) 39, Lymphocytes (%) (Auto) 40, Monocytes (%) (Auto) 11, Eosinophils (%) (Auto) 8, Basophils (%) (Auto) 2, Neutrophils # (Auto) 2.1, Lymphocytes # (Auto) 2.2, Monocytes # (Auto) 0.6, Eosinophils # (Auto) 0.5, Basophils # (Auto) 0.1, Immature Granulocyte # (Auto) 0.0, Sodium Level 134, Potassium Level 3.1, Chloride Level 91, Carbon Dioxide Level 30, Anion Gap 13, Blood Urea Nitrogen 6, Creatinine 0.73, Estimat Glomerular Filtration Rate 110, BUN/Creatinine Ratio 8, Glucose Level 120, Calcium Level 9.2, Corrected Calcium 10.1, Total Bilirubin 0.7, Aspartate Amino Transf (AST/SGOT) 30, Alanine Aminotransferase (ALT/SGPT) 15, Alkaline Phosphatase 69, Total Protein 6.0, Albumin 2.9 03/23/22 05:35: White Blood Count 6.2, Red Blood Count 3.64, Hemoglobin 11.1, Hematocrit 33, Mean Corpuscular Volume 90, Mean Corpuscular Hemoglobin 31, Mean Corpuscular He moglobin Concent 34, Red Cell Distribution Width 12.8, Platelet Count 380, Mean Platelet Volume 10.4, Immature Granulocyte % (Auto) 0, Neutrophils (%) (Auto) 46, Lymphocytes (%) (Auto) 39, Monocytes (%) (Auto) 7, Eosinophils (%) (Auto) 6, Basophils (%) (Auto) 2, Neutrophils # (Auto) 2.9, Lymphocytes # (Auto) 2.4, Monocytes # (Auto) 0.4, Eosinophils # (Auto) 0.3, Basophils # (Auto) 0.1, Immature Granulocyte # (Auto) 0.0, Sodium Level 136, Potassium Level 3.7, Chloride Level 98, Carbon Dioxide Level 27, Anion Gap 11, Blood Urea Nitrogen 7, Creatinine 0.81, Estimat Glomerular Filtration Rate 107, BUN/Creatinine Ratio 9, Glucose Level 121, Calcium Level 9.0, Corrected Calcium 9.8, Total Bilirubin 0.6, Aspartate Amino Transf (AST/SGOT) 39, Alanine Aminotransferase (ALT/SGPT) 18, Alkaline Phosphatase 82, Total Protein 6.3, Albumin 3.0, Magnesium Level 1.7 Discharge Home Medications: Active Scripts Active Lotrimin AF (Miconazole Nitrate) 2 % Powder 0 Gm TOP BID twice daily prn Klor-Con M20 (Potassium Chloride) 20 Meq Tab.er.prt 20 Meq PO BID Cymbalta (Duloxetine HCl) 30 Mg Capsule.dr 60 Mg PO DAILY Spironolactone 25 Mg Tablet 25 Mg PO DAILY Furosemide 40 Mg Tablet 40 Mg PO DAILY Instructions to patient/family Please see electronic discharge instructions given to patient. Diagnosis/Problems Diagnosis/Problems (1) Myopathy MYRNA LOWRY DO Mar 29, 2022 07:44
[2022-03-29] MEDS: SPIRONOLACTONE 25 MG (ALDACTONE) TAB PO SCH (09:05)
[2022-03-29] MEDS: FUROSEMIDE 40 MG (LASIX) TAB PO SCH (09:05)
[2022-03-29] MEDS: KCL 20 MEQ TAB (K-DUR) PO SCH ×2 (09:05→12:43)
[2022-03-29] MEDS: DULoxetine 30 MG (CYMBALTA) CAP PO SCH (09:05)
[2022-03-29] MEDS: MICONAZOLE 2% POWDER (DESENEX AF) 90 GM TOP SCH (09:06)
[2022-03-29] MEDS: SENNA W/DOCUSATE (SENOKOT S) TABLET PO SCH (09:07)
[2022-03-29] MEDS: DOCUSATE SODIUM 100 MG (COLACE) CAP PO SCH (09:07)
[2022-03-29] MEDS: polyethylene glycoL POWDER 17 GM (MIRALAX) PACK PO SCH (09:07)
[2022-03-29 15:45] VITALS: BP 120/87
--- NOTE | 2022-03-30 12:41 | Therapy Team Discharge Summary ---
Therapy Discharge Summary Discharge Recommendations Date of Discharge Mar 29, 2022 at 15:45 Physical Therapy Patient came to rehab with myopathy. Upon evaluation patient performs rolling and supine <-> sit with SBA, sit <-> stand min assist (especially from lower surfaces), transfers and car transfer CGA, ambulate 120' with a rolling walker with CGA (including 50' with at least 2 turns of 90 degrees and 10' over an uneven surface), and picked up an object from the floor using a word processing operator with CGA. Patient has been performing bed mobility and transfer training, balance and endurance training, functional strengthening, stair training, gait training, and education. 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 Now, patient performs rolling and supine <-> sit with independence, sit <-> stand and transfers with independence, car transfer independent, ambulates at least 150' with a rolling walker with independence (including 50' with at least 2 turns of 90 degrees and 10' over an uneven surface), can go up and down 4 steps using 2 handrails with CGA/SBA, and can picker box operator an object from the floor with independence. Patient has been discharged from this facility and will be discharged from PT at this time. Roll Left to Right (QC): 6 Sit to Lying (QC): 6 Lying to Sitting/Side of Bed(Q: 6 Sit to Stand (QC): 6 Chair/Gbs-jx-Aqret Xfer(QC): 6 Toilet Transfer (QC): 6 Car Transfer (QC): 6 Does the Patient Walk: Yes Mode of Locomotion: Walk Anticipated Mode of Locomotion: Walk Walk 10 feet (QC): 6 Walk 50 ft with 2 Turns(QC): 6 Walk 150 ft (QC): 6 Walking 10ft on uneven surface: 6 Distance: 120' Gait Assistive Device: FWW Does the Pt Use a Wheelchair: No Wheel 50 ft with 2 turns (QC): 9 Wheel 150 ft (QC): 9 #of Steps: 4 1 Step (curb) (QC): 4 4 Steps (QC): 4 12 Steps (QC): 88 Balance Sitting Static: Good Balance Sitting Dynamic: Good Balance-Standing Static: Good Picking up an Object (QC): 6 Occupational Therapy Decreased Activ Tolerance, Impaired Self-Care Skills Eating (QC): 6 Oral Hygiene (QC): 6 Shower/Bathe Self (QC): 3 (Min A with washing buttocks.) Upper Body Dressing (QC): 6 Lower Body Dressing (QC): 6 On/Off Footwear (QC): 4 (min VCs for sock aide.) Toileting Hygiene (QC): 3 (min A with posterior hygiene.) PT Counter Pocket Trimmer Goals Counter Pocket Trimmer Goals PT Correction Goals Time Frame: Apr 03, 2022 Roll Left to Right (QC): 6 Sit to Lying (QC): 6 Lying-Sitting on Side/Bed(QC): 6 Sit to Stand (QC): 6 Chair/Lhv-zk-Ezxla Xfer(QC): 6 Toilet/Commode Transfer (QC): 6 Car Transfer (QC): 6 Does the Patient Walk: Yes Walk 10 feet (QC): 6 Walk 10ft-Uneven Surface(QC): 6 Walk 50ft with 2 Turns (QC): 6 Walk 150 ft (QC): 6 Wheel 50 feet with 2 turns (QC: 9 Wheel 150 feet: 9 1 Step (curb) (QC): 4 4 Steps (QC): 4 12 Steps (QC): 88 Picking up an Object (QC): 6 OT Counter Pocket Trimmer Goals Counter Pocket Trimmer Goals Time Frame: Apr 10, 2022 Acute change in mental status: 0 Inattention: 0 Disorganized thinkin Altered level of consciousness: 0 Eating (QC): 6 (met) Oral Hygiene (QC): 6 (met) Toileting Hygiene (QC): 6 (not met) Shower/Bathe Self (QC): 6 (not met) Upper Body Dressing (QC): 6 (met) Lower Body Dressing (QC): 6 (met) On/Off Footwear (QC): 6 (not met) Additional Goals: 1-Demonstrate ADL Tasks, 2-Verbalize Understanding, 3-ImproveStrength/Марина 1=Demonstrate adherence to instructed precautions during ADL tasks. 2=Patient will verbalize/demonstrate understanding of assistive devices/modifications for ADL. 3=Patient will improve strength/tolerance for activity to enable patient to perform ADL's. STU OATES PT Mar 30, 2022 12:41
--- NOTE | 2022-03-30 14:48 | Therapy Team Discharge Summary ---
Therapy Discharge Summary Discharge Recommendations Date of Discharge Mar 29, 2022 at 15:45 Physical Therapy Roll Left to Right (QC): 6 Sit to Lying (QC): 6 Lying to Sitting/Side of Bed(Q: 6 Sit to Stand (QC): 6 Chair/Ocr-zn-Ivxoq Xfer(QC): 6 Toilet Transfer (QC): 6 Car Transfer (QC): 6 Does the Patient Walk: Yes Mode of Locomotion: Walk Anticipated Mode of Locomotion: Walk Walk 10 feet (QC): 6 Walk 50 ft with 2 Turns(QC): 6 Walk 150 ft (QC): 6 Walking 10ft on uneven surface: 6 Distance: 120' Gait Assistive Device: FWW Does the Pt Use a Wheelchair: No Wheel 50 ft with 2 turns (QC): 9 Wheel 150 ft (QC): 9 #of Steps: 4 1 Step (curb) (QC): 4 4 Steps (QC): 4 12 Steps (QC): 88 Balance Sitting Static: Good Balance Sitting Dynamic: Good Balance-Standing Static: Good Picking up an Object (QC): 6 Occupational Therapy Pt admitted to ARU with myopathy. At [facility], pt required some assistance with ADLs and functional mobility using FWW. Upon initial evaluation, pt was independent with eating, required SBA with oral care, mod A LE dressing, set up UE dressing and min A showering, footwear and toileting. OT tx focused on increasing BUE Strength and activity tolerance, and increasing safety and independence with ADLs and functional mobility. Pt made good progress towards goals, meeting LTGs for eating, oral care, UE dressing and LE dressing. Pt discharged home with spouse, d/c from OT. Decreased Activ Tolerance, Impaired Self-Care Skills Eating (QC): 6 Oral Hygiene (QC): 6 Shower/Bathe Self (QC): 3 (Min A with washing buttocks.) Upper Body Dressing (QC): 6 Lower Body Dressing (QC): 6 On/Off Footwear (QC): 4 (min VCs for sock aide.) Toileting Hygiene (QC): 3 (min A with posterior hygiene.) PT Group Home Goals Qc Manager Goals PT Qc Manager Goals Time Frame: Apr 03, 2022 Roll Left to Right (QC): 6 Sit to Lying (QC): 6 Lying-Sitting on Side/Bed(QC): 6 Sit to Stand (QC): 6 Chair/Lxv-hg-Pourm Xfer(QC): 6 Toilet/Commode Transfer (QC): 6 Car Transfer (QC): 6 Does the Patient Walk: Yes Walk 10 feet (QC): 6 Walk 10ft-Uneven Surface(QC): 6 Walk 50ft with 2 Turns (QC): 6 Walk 150 ft (QC): 6 Wheel 50 feet with 2 turns (QC: 9 Wheel 150 feet: 9 1 Step (curb) (QC): 4 4 Steps (QC): 4 12 Steps (QC): 88 Picking up an Object (QC): 6 OT Group Home Goals Qc Manager Goals Time Frame: Apr 10, 2022 Acute change in mental status: 0 Inattention: 0 Disorganized thinkin Altered level of consciousness: 0 Eating (QC): 6 (met) Oral Hygiene (QC): 6 (met) Toileting Hygiene (QC): 6 (not met) Shower/Bathe Self (QC): 6 (not met) Upper Body Dressing (QC): 6 (met) Lower Body Dressing (QC): 6 (met) On/Off Footwear (QC): 6 (not met) Additional Goals: 1-Demonstrate ADL Tasks, 2-Verbalize Understanding, 3- ImproveStrength/Марина 1=Demonstrate adherence to instructed precautions during ADL tasks. 2=Patient will verbalize/demonstrate understanding of assistive devices/modifications for ADL. 3=Patient will improve strength/tolerance for activity to enable patient to perform ADL's. IDALIA SCRUGGS OT Mar 30, 2022 14:48
== END 2022-03-29 15:45 | disposition home health service (06) | DRG 92 ==
LOC: EDBD 12:15
PROVIDERS: ADMIT Internal Medicine; ATTEND Internal Medicine
DX: G72.1 Alcoholic myopathy (principal); E87.1 Hypo-osmolality and hyponatremia; Z68.41 Body mass index [BMI] 40.0-44.9, adult; R53.1 Weakness; R53.81 Other malaise; F10.21 Alcohol dependence, in remission; E11.40 Type 2 diabetes mellitus with diabetic neuropathy, unspecified; E87.6 Hypokalemia; G47.33 Obstructive sleep apnea (adult) (pediatric); I10 Essential (primary) hypertension; Z91.81 History of falling; M19.91 Primary osteoarthritis, unspecified site; F41.9 Anxiety disorder, unspecified; F32.A Depression, unspecified; K76.0 Fatty (change of) liver, not elsewhere classified; M54.9 Dorsalgia, unspecified; E66.9 Obesity, unspecified; N40.0 Benign prostatic hyperplasia without lower urinary tract symptoms; B35.1 Tinea unguium; M20.42 Other hammer toe(s) (acquired), left foot; M20.41 Other hammer toe(s) (acquired), right foot; Z87.891 Personal history of nicotine dependence; Z79.899 Other long term (current) drug therapy; Z98.1 Arthrodesis status
CPT/HCPCS: 36415; 80053; 83735; 85025

== ENCOUNTER → 2022-12-21 | Outpatient (CLI) | payer OTHER, BC ==
[~2022-12-21] MED LIST changes: -ALPRAZolam 0.25 MG (XANAX) TAB PO PRN; -BISACODYL 10 MG SUPP (DULCOLAX) PR PRN; -CALCIUM CARBONATE 500 MG (TUMS) TAB.CHEW PO PRN; -DOCUSATE SODIUM 100 MG (COLACE) CAP PO PRN; +DULO30CA3 PO; -FLEET ENEMA ADULT 1 EA BTL PR PRN; +GLIM4TAB5 PO; -LACTULOSE SYRUP 10GM/15ML (ENULOSE) 30ML UDC PO PRN; -LOPERAMIDE 2 MG (IMODIUM) TABLET PO PRN; -MELATONIN 3 MG TABLET PO PRN; +MICO90PO TOP; -ONDANSETRON 4 MG (ZOFRAN) ORAL DISSOLVE TAB PO PRN; +POTA-169 PO; -diphenhydrAMINE 25 MG TAB (BENADRYL) PO PRN; -guaiFENesin/CODEINE (ROBITUSSIN AC) 10ML UDC PO PRN
== END ==
LOC: LABNPT 17:41
PROVIDERS: ATTEND Nurse Practitioner Family
DX: Z11.52 Encounter for screening for COVID-19 (principal)
CPT/HCPCS: 87636